=== PATIENT | female | born 1975 | race Caucasian/White ===

== ENCOUNTER 2017-09-18 16:45 | Emergency (ER) | payer MEDICAID, SELFPAY ==
[2017-09-18 16:47] VITALS: BP 142/96; PULSE 91; RESP 18; TEMP 36.9; O2SAT 99; BMI 32.1
--- NOTE | 2017-09-18 17:24 | RAD_ITS ---
STUDY: X-RAY - PELVIS AND RIGHT HIP REASON FOR EXAM: Female, 42 years old. Trauma TECHNIQUE: Radiological exam, hip, unilateral, with pelvis when performed; 2 or 3 views. COMPARISON: None. FINDINGS: There is a non-specific bowel gas pattern. Normal visualized soft tissue structures. Normal bilateral iliac wings, sacroiliac joints and visualized sacrum. Normal bilateral superior and inferior pubic rami. Normal pubic symphysis. Normal bilateral ischial tuberosities. Normal visualized femoral head. Normal acetabulum. Normal hip joint. RAD/Hip 2-3 Views with Pelvis IMPRESSION: Normal x-ray examination of the pelvis and hip. Electronically Signed: Aamir Joseph, at 18:13 EDT Tel , Service support ,
--- NOTE | 2017-09-18 17:24 | RAD_ITS ---
STUDY: X-RAY - NASAL BONES REASON FOR EXAM: Female, 42 years old. Fall TECHNIQUE: History view(s) of the nasal bones. COMPARISON: None. FINDINGS: There is a minimally displaced fracture of the distal aspect of the nasal bone. The paranasal sinuses are clear. There are no radiodense foreign bodies. RAD/Nasal Bones min 3 Views IMPRESSION: Minimally displaced fracture of the distal nasal bone. Electronically Signed: Aamir Joseph, at 18:07 EDT Tel , Service support ,
--- NOTE | 2017-09-18 18:05 | CT_ITS ---
STUDY: CT BRAIN WITHOUT CONTRAST REASON FOR EXAM: Female, 42 years old. Trauma RADIATION DOSAGE (If Supplied By Facility): CTDIvol = ( 44.99 ) mGy, DLP = ( 762.36 ) mGycm TECHNIQUE: Transaxial CT imaging of the brain was performed without administration of intravenous contrast material. Individualized dose optimization techniques were used for this CT. COMPARISON: 10/06/2006 FINDINGS: There is no acute bleed or infarct. There are normal white matter tracts. The ventricles are normal in configuration. There is no hydrocephalus. The visualized paranasal sinuses are clear. The mastoid air cells are well aerated. There is no skull fracture. CT/Brain/Head without Contrast IMPRESSION: No acute intracranial abnormality. Electronically Signed: Aamir Joseph, at 19:13 EDT Tel , Service support ,
--- NOTE | 2017-09-18 18:05 | CT_ITS ---
STUDY: CT FACIAL BONES WITHOUT CONTRAST REASON FOR EXAM: Female, 42 years old. Trauma RADIATION DOSAGE (If Supplied By Facility): CTDIvol = ( 29.38 ) mGy, DLP = ( 562.15 ) mGycm TECHNIQUE: The patient was scanned in a multi detector CT scanner. Sagittal and coronal images were reconstructed. Individualized dose optimization techniques were used for this CT. COMPARISON: Brain CT dated 10/06/2006 FINDINGS: There are well-corticated lucencies in the nasal bones (image 41 series 6) which are stable when compared with the brain CT dated 10/06/2006 (image 1 series 2 on that study). Therefore, these are not acute in nature. There is no acute facial fracture. The paranasal sinuses are clear. There is mild soft tissue swelling overlying the nose. The visualized intracranial structures are within normal limits. CT/Sinus/Facial Bone IMPRESSION: No acute facial fracture. Clear sinuses. Well-corticated lucencies in the nasal bone which are stable when compared with the brain CT dated 10/06/2006. Therefore, these are not acute in nature. Mild soft tissue swelling overlying the nose. Electronically Signed: Aamir Joseph, at 19:00 EDT Tel , Service support ,
--- NOTE | 2017-09-18 19:40 | ED.VISSUMM ---
- ER Visit Summary Date of Service: 09/18/17 Chief Complaint: Fall History of Present Illness: The patient is a 42 F who had a fall 3 days ago. She had been sleeping. She was woken up and stood up quickly and states she really was not completely awake and she felt lightheaded and fell forward onto her face. She currently complains of a headache and pain under nose. She also complains of right hip pain radiating down her leg. No back pain. Physical Examination: Afebrile vitals are stable Patient does have some periorbital ecchymosis and bruising across the nasal bridge as well as soft tissue swelling no epistaxis no midface instability GCS of 15 with no focal or lateralizing neurological deficits Heart regular rate and rhythm Lungs are clear Abdomen soft Easily palpable right dorsalis pedis pulse with brisk capillary refill normal sensation really no reproducible pain with range of motion of the hip she has a negative straight leg raise Test Results: Right hip x-ray and nasal bone x-rays were obtained based off of nursing protocol. Right hip x-ray is normal. Nasal bone x-ray shows a minimally displaced nasal fracture. CT of the head and facial bones is obtained. CT of the facial bones shows well-corticated lucencies which are stable from 2006 examination in the nasal bones no acute fracture. CT of the head shows nothing acute. Emergency Department Course and Treatment: Nasal bone x-rays have been obtained off nursing protocol but given her periorbital ecchymosis and for more detailed results I did obtain a CT of the facial bones with actually shows that the nasal bone fracture is old. The patient does report an old nasal fracture. She was advised on supportive care. All questions answered bedside. Patient discharged. Treatment Plan: [] Disposition: Discharge Impression: Lumbar radiculopathy Closed head injury Facial contusion This note was generated with [employer] dictation software. It may contain incorrect words, spelling, and punctuation that were not noted in review of the chart prior to signing ED Disposition - Plan for ED Patient: Chief Complaint: Other, Pain/Inj Referrals: Catalina Samuels, ABELARDO-C [Primary Care Provider] -
--- NOTE | 2017-09-18 19:42 | ED.DEP ---
ED Disposition - Plan for ED Patient: Chief Complaint: Other, Pain/Inj Instructions: ED Contusion Nasal, ED Head Injury Closed Referrals: Catalina Samuels, FINANCE ATTORNEY-C [Primary Care Provider] -
--- NOTE | 2017-09-18 19:46 | DCINST.ED_ITS ---
ED Disposition - Plan for ED Patient: Chief Complaint: Other, Pain/Inj Instructions: ED Contusion Nasal, ED Head Injury Closed Referrals: Catalina Samuels, REGISTERED NURSE MATERNAL CHILD-C [Primary Care Provider] -
[2017-09-18 19:49] VITALS: BP 132/72; PULSE 94; RESP 17; O2SAT 100
== END 2017-09-18 19:50 | disposition home or self-care (01) ==
PROVIDERS: Emergency Provider Emergency Medicine; PCP Nurse Practitioner Family
DX: S00.33XA Contusion of nose, initial encounter (principal); S05.10XA Contusion of eyeball and orbital tissues, unspecified eye, initial encounter; M25.551 Pain in right hip; W19.XXXA Unspecified fall, initial encounter; Y93.9 Activity, unspecified; Y92.9 Unspecified place or not applicable; Y99.9 Unspecified external cause status; M54.16 Radiculopathy, lumbar region; E11.9 Type 2 diabetes mellitus without complications; I10 Essential (primary) hypertension; Z72.0 Tobacco use; Z79.4 Long term (current) use of insulin; Z79.899 Other long term (current) drug therapy
CPT/HCPCS: 70160; 70450; 70486; 73502; 99282

== ENCOUNTER 2017-12-24 12:55 | Emergency (ER) | payer MEDICAID, SELFPAY ==
[2017-12-24 12:56] VITALS: BP 120/98; PULSE 93; RESP 16; TEMP 37.1; O2SAT 97; BMI 32.5
[2017-12-24 13:39] VITALS: BP 144/88; PULSE 106; RESP 16; O2SAT 96
[2017-12-24 13:40] LABS: Bedside Glucose 310 mg/dL (70-110)
[2017-12-24 13:42] LABS: Absolute Neutrophil Count 9.5 X10^3/uL (2.0-7.7); Basophil# 0.07 X10^3/uL; Basophil% 0.5 % (0-1); Eosinophil# 0.12 X10^3/uL; Eosinophils% 0.9 % (0-5); Hematocrit 43.5 % (37-47); Lymphocyte % 21.4 % (19-41); Mean Corp Hgb Conc 34.5 g/gl (32-36); Mean Corpuscular Hgb 30.7 pg (27.0-32.0); Mean Platelet Vol. 8.8 fl (6.2-12.0); Monocyte# 0.83 X10^3/uL; Monocyte% 6.1 % (0-10); Neutrophil # 9.53 X10^3/uL (2.7-7.7); Neutrophil % 70.6 % (47-70); Platelet Count 528 K/mm3 (150-450); RBC Distribution Width CV 13.8 % (11.6-14.6); RBC Distribution Width SD 44.3 fl (35.1-43.9); Red Blood Count 4.89 M/mm3 (4.2-5.4); White Blood Count 13.5 K/mm3 (4.4-11.0)
[2017-12-24] MEDS: HYDROcodone Bitartrate/Apap 5/325 Tablet PO (13:43)
[2017-12-24] MEDS: 0.9% Normal Saline 1,000 ML 1000 ML IV (13:43)
[2017-12-24 13:44] LABS: POSITIVE COUNT NO; POSITIVE DIFFERENTIAL NO; POSITIVE MORPHOLOGY NO
[2017-12-24 13:51] LABS: Anion Gap 12 (5-15); BUN 13 mg/dL (7-18); BUN/Creat Ratio 14.8 RATIO (10-20); Calcium,Total 9.2 mg/dL (8.5-10.1); Chloride 100 mmol/L (98-107); Creatinine, Serum 0.88 mg/dL (0.55-1.02); EST Glomerular Filtration Rate 75 mL/min (>60); Est Glom Filt Rate - Afr Amer 90 mL/min (>60); Estimated Creatinine Clearance 68.19 ml/min; Glucose 306 mg/dL (74-106); Potassium 4.2 mmol/L (3.5-5.1); Sodium Level 138 mmol/L (136-145)
[2017-12-24 14:02] LABS: Mucous, Urine 0 SEEN /hpf (<or=2+)
[2017-12-24 14:04] LABS: Color, Urine Yellow (Yellow); Glucose, Dipstick 1000 mg/dl (Normal); Ketone-Dipstick 15 mg/dl (Negative); Leukocyte Esterase-Dipstick 500 /ul (Negative); Nitrite-Dipstick Negative (Negative); Occult Blood-Urine 10 /ul (Negative); Protein-Dipstick 15 mg/dl (Negative); Urine Bilirubin Dipstick Negative (Negative); Urine Clarity Cloudy (Clear); Urine Urobilinogen Normal (Normal)
[2017-12-24 14:11] LABS: Bacteria RARE /hpf (None Seen); Red Blood Cells-Urine 0-5 SEEN /hpf (0-5); Squamous Epithelial Cells - UA 0-5 SEEN /hpf (5-10); White Blood Cells 5-10 SEEN /hpf (0-5); Yeast-Urine 1+ /hpf (None Seen)
--- NOTE | 2017-12-24 15:12 | ED.VISSUMM ---
- ER Visit Summary Date of Service: 12/24/17 Chief Complaint: Numerous symptoms which include vaginal discharge and pain, neuropathic pain lower extremities bilaterally, blood sugar greater than 300 History of Present Illness: The patient is a 42 F who presents with worsening bilateral neuropathic pain lower extremity, difficulty controlling blood sugar with numerous readings past 1-2 weeks of greater than 300. Last A1c level greater than 12. She also complains of vaginal discharge and itching. She complains of mild dysuria with urination. She denies fever, chills night sweats. Denies weight gain or weight loss. She denies headache. She denies chest pain, palpitations or rapid heartbeat. She denies productive cough, dyspnea or dyspnea on exertion. She denies nausea, vomiting diarrhea. She denies any skin lesion other than the the redness associated with the vaginal discharge. She is not sexually active. Denies history of STD. She denies symptoms of claudication. Physical Examination: Vital signs are remarkable for an elevated blood pressure of 128/98. BMI is 32.6. HEENT is remarkable for poor dentition. Heart is regular without murmur, gallop or rub. S1 and S2 are normal. Lungs are clear to auscultation with good movement of air bilaterally. Abdomen is soft nontender bowel sounds present normal. There is no evidence of umbilical or inguinal hernia. Patient has diminished DP PT pulse. There is absence of hair lower/distal right and left leg and toes. Patient is alert and oriented ?3. Motor is 5 over 5. Sensory is intact. DTRs are symmetric with no clonus or Babinski sign. Cranial 2 through 12 are intact. Cerebellar testing is normal. Patient does have pain out of proportion to light touch consistent with neuropathic pain and describes as burning. Test Results: White count elevated 13.5 with 71 segs. BMP is marked for glucose of 306 with normal CO2 and anion gap. UA is remarkable for yeast as well as proteinuria and hematuria. Emergency Department Course and Treatment: To evaluate patient's symptoms UA was obtained. Suspect she has a yeast infection. BMP was obtained because of her reported elevated blood sugars and elevated A1c. Treatment Plan: Patient received Diflucan. She was informed of the importance that she must stop smoking immediately. She was a smoker 1-1/2-2 packs per day. She continues to smoke. She was told the importance of compliance with her diet. She was informed she needs to follow-up with her doctor for diabetic education. She was told she is on maximum dose of gabapentin and at this time I have nothing further to offer her regarding her neuropathic pain. She received Diflucan in the department for her yeast infection. Disposition: Discharged to home with family and outpatient follow-up for diabetic education. Patient was informed she continues her present lifestyle she may have premature stroke, heart disease and heart attack, renal failure requiring dialysis and loss of digits/extremities. Impression: 1. Monilial yeast infection 2. Poorly controlled type II diabetic 3. Neuropathic pain lower extremity 4. Peripheral arterial disease 5. Tobacco abuse This note was generated with [employer] dictation software. It may contain incorrect words, spelling, and punctuation that were not noted in review of the chart prior to signing ED Disposition - Plan for ED Patient: Disposition: Home or Assisted Living Chief Complaint: Other, Pain/Inj Instructions: ED Neuropathy Peripheral, ED Hyperglycemia Diabetic, ED PVD, ED Smoking Cessation Referrals: Catalina Samuels, ABELARDO-C [Primary Care Provider] - 3-5 Days Additional Instructions: You must quit smoking immediately.
[2017-12-24] MEDS: Fluconazole 100 MG Tablet 200 MG PO (15:41)
[2017-12-24 15:42] VITALS: BP 139/88; PULSE 79; RESP 18; O2SAT 98
== END 2017-12-24 15:43 | disposition home or self-care (01) ==
PROVIDERS: Emergency Provider Emergency Medicine; PCP Nurse Practitioner Family
DX: B37.3 Candidiasis of vulva and vagina (principal); E11.65 Type 2 diabetes mellitus with hyperglycemia; E11.40 Type 2 diabetes mellitus with diabetic neuropathy, unspecified; R03.0 Elevated blood-pressure reading, without diagnosis of hypertension; R31.9 Hematuria, unspecified; R80.9 Proteinuria, unspecified; I73.9 Peripheral vascular disease, unspecified; F17.200 Nicotine dependence, unspecified, uncomplicated; E66.9 Obesity, unspecified; Z68.32 Body mass index [BMI] 32.0-32.9, adult; Z79.4 Long term (current) use of insulin; Z79.899 Other long term (current) drug therapy
CPT/HCPCS: 80048; 81001; 82962; 85025; 96360; 96361; 99285; J7030

== ENCOUNTER 2017-12-27 08:15 | Emergency (ER) | payer MEDICAID, SELFPAY ==
[2017-12-27 08:17] VITALS: BP 139/91; PULSE 106; RESP 15; TEMP 36.4; O2SAT 99; BMI 32.2
--- NOTE | 2017-12-27 08:37 | EKG12_ITS ---
Test Reason : Blood Pressure : / mmHG Vent. Rate : 093 BPM Atrial Rate : 093 BPM P-R Int : 122 ms QRS Dur : 082 ms QT Int : 378 ms P-R-T Axes : 059 020 039 degrees QTc Int : 469 ms Normal sinus rhythm Normal ECG Confirmed by ARIANNE GRANDE, TOMY ([id number]), communications editor GUILLE WILHELM ([id number]) on 12/29/2017 1:41:08 PM Referred By: Asia Roque Confirmed By:TOMY ACUÑA MD
--- NOTE | 2017-12-27 08:37 | CT_ITS ---
STUDY: CT ABDOMEN AND PELVIS WITHOUT CONTRAST REASON FOR EXAM: Female, 42 years old. Low pelvic pain, fever RADIATION DOSAGE (If Supplied By Facility): CTDIvol = ( 14.51 ) mGy, DLP = ( 765.92 ) mGycm TECHNIQUE: Transaxial images were obtained from the dome of the diaphragm to the symphysis pubis without oral contrast, and without intravenous contrast. Sagittal and coronal images were reconstructed. Individualized dose optimization techniques were used for this CT. COMPARISON: 10/17/2016 FINDINGS: Lung bases show interstitial edema. No organized infiltrate or effusion. The visualized portions of the heart are within normal limits. There is decreased attenuation of the liver consistent with steatosis. Normal gallbladder and extrahepatic biliary system. Normal spleen. Normal pancreas. Normal bilateral adrenal glands. Normal right kidney. Normal left kidney. Normal visualized stomach. Normal small intestine. Normal colon. The appendix is visualized and appears normal. Appendix best seen on axial image 127 Normal abdominal aorta. Normal inferior vena cava. Normal retroperitoneum. Normal urinary bladder. Normal visualized uterus. No suspicious cystic mass or free fluid. Normal abdominal wall. Normal osseous structures. CT/Abdomen/Pelvis without Cont IMPRESSION: Fatty infiltration of liver, no discrete lesion. No CT evidence of an acute inflammatory process, normal appendix visualized. No free intraperitoneal fluid, air, or suspicious adenopathy Interstitial edema in the lung bases. Electronically Signed: Tim Quesada MD at 9:19 EDT , Service support ,
--- NOTE | 2017-12-27 08:44 | ED.VISSUMM ---
- ER Visit Summary Date of Service: 12/27/17 Chief Complaint: [Not feeling well] History of Present Illness: The patient is[presents the emergency department with 3 days of not feeling well. She has had a rash on her bilateral knees consistent with her psoriasis she has pain in her proximal thighs pain in her paraspinal back muscles that radiates to her neck. She complains of chills and fevers nausea decreased appetite green mucousy stool high blood sugars in general malaise. She was seen here with yeast vaginitis. She states she is not feeling any better.] Physical Examination: [] Pressure 139/91, heart rate 106 other vitals within acceptable limits WN WD NAD PERRL EOMI MMM NECK supple and nontender, no masses RRR no murmur rub or gallop, no peripheral edema, symmetric radial pulses CTAB no respiratory distress ABDOMEN is soft and mild tenderness to palpation left lower quadrant normal bowel sounds, no distension, no rebound or guarding SKIN is warm and dry dry scaly erythematous rash in the bilateral anterior knees Alert and Oriented x3, CN II-XII in tact, no motor or sensory deficits, gait normal No lymphadenopathy Test Results: [] Emergency Department Course and Treatment: [Patient has a leukocytosis at 12. Blood sugar was 270. Urine does appear infected. Urine culture was sent. Patient was given Levaquin IV. She was given the same for home. She was given precautions for which to return. She did request pain medicine. She denies having any recent narcotic prescriptions. I am unable to get into worse because of computer issues. I will write her for Mack.] Treatment Plan: [] Disposition: [Discharge] Impression: [1. Myalgias 2. UTI] This note was generated with [employer] dictation software. It may contain incorrect words, spelling, and punctuation that were not noted in review of the chart prior to signing ED Disposition - Plan for ED Patient: Chief Complaint: General Illness Referrals: Catalina Samuels NP-C [Primary Care Provider] -
[2017-12-27] MEDS: 0.9% Normal Saline 1,000 ML 1000 ML IV (08:51)
[2017-12-27] MEDS: Morphine 4 MG/ML Syringe IV ×2 (08:52→10:56)
[2017-12-27] MEDS: levoFLOXacin IV 500 MG/100 ML BAG 100 MG IV (08:52)
[2017-12-27] MEDS: Ondansetron 4 MG/2 ML Vial IV (08:52)
[2017-12-27 08:58] LABS: Absolute Lymphocyte Count 3.71 X10^3/ul (0.83-4.51); Absolute Neutrophil Count 6.4 X10^3/uL (2.0-7.7); Basophil# 0.05 X10^3/uL; Basophil% 0.4 % (0-1); Eosinophil# 0.21 X10^3/uL; Eosinophils% 1.8 % (0-5); Hematocrit 39.6 % (37-47); Hemoglobin 13.4 g/dl (12.0-15.0); Lymphocyte # 3.71 X10^3/ul (4.0); Lymphocyte % 31.9 % (19-41); Mean Corp Hgb Conc 33.8 g/gl (32-36); Mean Corpuscular Hgb 30.3 pg (27.0-32.0); Mean Corpuscular Volume 89.6 fL (81-99); Mean Platelet Vol. 8.8 fl (6.2-12.0); Monocyte% 10.3 % (0-10); Neutrophil # 6.39 X10^3/uL (2.7-7.7); Neutrophil % 55.1 % (47-70); Platelet Count 469 K/mm3 (150-450); RBC Distribution Width SD 45.1 fl (35.1-43.9); Red Blood Count 4.42 M/mm3 (4.2-5.4); White Blood Count 11.6 K/mm3 (4.4-11.0)
[2017-12-27 09:02] LABS: POSITIVE COUNT NO; POSITIVE DIFFERENTIAL NO; POSITIVE MORPHOLOGY NO
[2017-12-27 09:17] LABS: ALB/GLOB Ratio 0.9 RATIO (0.9-2.4); AST(SGOT) 32 U/L (15-37); Alanine Aminotransfer ALT/SGPT 46 U/L (13-56); Albumin, Serum 3.4 g/dL (3.2-5.0); Alkaline Phosphatase 105 U/L (45-117); Anion Gap 9 (5-15); BUN 13 mg/dL (7-18); BUN/Creat Ratio 17.1 RATIO (10-20); Calcium,Total 9.1 mg/dL (8.5-10.1); Chloride 103 mmol/L (98-107); Creatinine, Serum 0.76 mg/dL (0.55-1.02); EST Glomerular Filtration Rate 88 mL/min (>60); Est Glom Filt Rate - Afr Amer 107 mL/min (>60); Estimated Creatinine Clearance 78.95 ml/min; Globulin 3.8 g/dL (2.2-4.2); Glucose 270 mg/dL (74-106); Lipase 161 U/L (73-393); Potassium 3.5 mmol/L (3.5-5.1); Protein, Total 7.2 g/dL (6.4-8.2); Sodium Level 139 mmol/L (136-145)
[2017-12-27 09:36] LABS: CPK Total, Creatine Kinase 185 U/L (26-192)
--- NOTE | 2017-12-27 11:05 | RAD_ITS ---
STUDY: X-RAY CHEST REASON FOR EXAM: Female, 42 years old. General illness, malaise TECHNIQUE: PA and lateral views of the chest. COMPARISON: None. FINDINGS: The lungs are clear and expanded. There is no demonstrated pleural abnormality. Normal size heart. Normal mediastinum and jolly. Normal visualized pulmonary arteries. Normal visualized aortic arch and descending thoracic aorta. Normal visualized thoracic spine. Normal visualized ribs, clavicles, and shoulders. There is no demonstrated abnormality of the visualized soft tissue structures of the upper abdomen. RAD/Chest PA and Lateral IMPRESSION: Normal x-ray examination of the chest. Electronically Signed: Tim Quesada MD at 11:20 EDT , Service support ,
[2017-12-27 11:09] VITALS: BP 109/70; PULSE 95; RESP 18; O2SAT 100
[2017-12-27 11:12] LABS: Mucous, Urine 0 SEEN /hpf (<or=2+); Red Blood Cells-Urine 0 SEEN /hpf (0-5)
[2017-12-27 11:15] LABS: Color, Urine Yellow (Yellow); Glucose, Dipstick 1000 mg/dl (Normal); Ketone-Dipstick 15 mg/dl (Negative); Leukocyte Esterase-Dipstick 500 /ul (Negative); Nitrite-Dipstick Negative (Negative); Occult Blood-Urine 10 /ul (Negative); Protein-Dipstick 15 mg/dl (Negative); Specific Gravity, Urine 1.025 (1.002-1.030); Urine Clarity Sl. Cloudy (Clear); Urine Urobilinogen Normal (Normal)
[2017-12-27 11:29] LABS: Urine Bilirubin Dipstick 1 mg/dL (Negative)
[2017-12-27 11:29] LABS: BNP,B-Type NATRIURETIC PEPTIDE 10.5 pg/mL (0-100)
[2017-12-27 11:31] LABS: White Blood Cells >100 SEEN /hpf (0-5)
[2017-12-27 11:33] LABS: Squamous Epithelial Cells - UA 0-5 SEEN /hpf (5-10)
[2017-12-27 11:34] LABS: Bacteria 2+ /hpf (None Seen)
--- NOTE | 2017-12-27 11:44 | ED.DEP ---
ED Disposition - Plan for ED Patient: Chief Complaint: General Illness Instructions: Urinary Tract Infections in Women Prescriptions: Hydrocodone Bitart/Apap 5-325 [[place] 5MG-325MG] 1 tablet PO Q4H PRN PRN 2 Days #10 tablet PRN Reason: Pain proMETHazine tablet [Phenergan] 25 mg PO Q6H PRN PRN #10 tablet PRN Reason: Nausea Levofloxacin [Levaquin] 750 mg PO DAILY #5 tablet Referrals: Catalina Samuels NP-C [Primary Care Provider] - 2 Days
[2017-12-27 11:53] VITALS: BP 109/70; PULSE 84; RESP 18; O2SAT 99
== END 2017-12-27 11:55 | disposition home or self-care (01) ==
PROVIDERS: Emergency Provider Emergency Medicine; PCP Nurse Practitioner Family
DX: N39.0 Urinary tract infection, site not specified (principal); M79.1 Myalgia; R53.81 Other malaise; R11.0 Nausea; R19.7 Diarrhea, unspecified; L40.9 Psoriasis, unspecified; E66.9 Obesity, unspecified; Z79.4 Long term (current) use of insulin; Z79.899 Other long term (current) drug therapy
CPT/HCPCS: 71046; 74176; 80053; 81001; 82550; 83690; 83880; 84484; 85025; 87086; 87088; 93005; 96365; 96366; 96375; 96376; 99283; J7030; A4216; J2405

== ENCOUNTER 2018-02-13 23:31 | Observation (INO) | payer MEDICAID, SELFPAY ==
[2018-02-13 23:31] VITALS: BP 168/95; PULSE 122; RESP 16; TEMP 36.3; O2SAT 99; BMI 34.0
--- NOTE | 2018-02-14 | RAD_ITS ---
STUDY: X-RAY - PELVIS AND RIGHT HIP REASON FOR EXAM: Female, 42 years old. Right-sided groin pain for 6 months after lifting injury. TECHNIQUE: Radiological exam, hip, unilateral, with pelvis when performed; 2 or 3 views. COMPARISON: CT of the abdomen and pelvis dated December 27, 2017. FINDINGS: There is a non-specific bowel gas pattern. There are multiple calcified phleboliths. Sacrum and iliac wings are obscured by bowel gas and stool. Normal bilateral superior and inferior pubic rami. Normal pubic symphysis. Normal bilateral ischial tuberosities. There appears to be a fracture of the lesser trochanter of the right femur. The proximal left femur is within normal limits. Normal acetabulum. Normal hip joint. RAD/HIP, UNI W/ Pelvis 2-3 Views IMPRESSION: Apparent fracture of the RIGHT lesser trochanter. Electronically Signed: Kelsea Hawkins MD at 1:01 EDT , Service support ,
[2018-02-14] MEDS: Ketorolac 60 MG/2 ML Vial IM (00:01)
[2018-02-14] MEDS: Morphine 4 MG/ML Syringe IM (00:01)
[2018-02-14] MEDS: Orphenadrine 60 MG/2 ML Ampul IM (00:02)
--- NOTE | 2018-02-14 00:22 | ED.DCSUM_ITS ---
- ER Visit Summary Date of Service: 02/14/18 Chief Complaint: Right hip pain History of Present Illness: The patient is a 42 F presents to the emergency department with right low back pain and right hip pain. The patient had the symptoms for the past 6 months. She states in August, she was in [place]. She states that she was lifting a toilet and felt something pop in her right hip. Since then, she has had consistent burning pain in her right hip into her right side. She has also had pain in her right low back and buttock area. She denies any problems of bowel or bladder. She denies any fevers or chills. She states she has been taking anti-inflammatories with little improvement. She is scheduled to see her primary care in 6 days, but states the pain is worsened and she need to be reevaluated. Physical Examination: Afebrile, vitals unremarkable. Well-appearing female no acute distress. Head is normocephalic, atraumatic. Pupil's equal round reactive, extraocular muscles intact. Neck supple. Heart regular rate and rhythm. Lungs clear, chest nontender. Abdomen soft, nontender, nondistended. No pulsatile mass. Patient has paraspinal tenderness in the lumbar area, but no bony tenderness. Straight leg raise is negative bilaterally. 2+ symmetric lower extremity pulses. 2+ reflexes. No clonus. No weakness of dorsiflexion, plantar flexion, or extensor hallucis longus bilaterally. Test Results: [] Emergency Department Course and Treatment: The patient has a lot of pain with logroll of the right hip. Her pulses are normal. She is neurovascular intact distally. There is no erythema or edema of the hip. She was treated with IM medications with very little improvement of her pain. Plain films do demonstrate fracture of the lesser trochanter. I was initially unsure if it actually went through the base of the cervical area of the hip. IV was established. Patient was given IV analgesics and was more comfortable. She can still not stand and bear weight because of her pain. CT demonstrates nonunion of the lesser trochanter. The fracture does not extend into the hip itself. Given her persistent pain, I do for the patient is can require admission and orthopedic consult. Patient was discussed with the hospitalist will be admitted. Treatment Plan: [] Disposition: Admission Impression: 1. 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 Inability to ambulate This note was generated with [employer] dictation software. It may contain incorrect words, spelling, and punctuation that were not noted in review of the chart prior to signing ED Disposition - Plan for ED Patient: Chief Complaint: Back Referrals: Catalina Samuels, AUTOMATIC SERGING MACHINE OPERATOR-C [Primary Care Provider] -
--- NOTE | 2018-02-14 01:04 | CT_ITS ---
STUDY: CT RIGHT HIP WITHOUT CONTRAST REASON FOR EXAM: Female, 42 years old. Right groin pain for 6 months after lifting injury. RADIATION DOSAGE (If Supplied By Facility): CTDIvol = ( 25.16 ) mGy, DLP = ( 634.29 ) mGycm TECHNIQUE: Transaxial CT imaging of the hip was performed. Sagittal and coronal images were reconstructed. Individualized dose optimization techniques were used for this CT. COMPARISON: Radiographs of the right hip dated February 14, 2018. FINDINGS: Normal visualized femoral diaphysis. Normal visualized skeletal muscles. There is an ununited fracture of the right-sided lesser trochanter. The fracture fragment measures approximately 11.5 mm in greatest dimension. Normal acetabulum. Normal hip joint. Normal visualized superior and inferior pubic rami and ischial tuberosities. Normal visualized urinary bladder. There is no evidence for dilated bowel. Normal visualized colon. There is no pelvic fluid. There is no pelvic mass lesion or lymphadenopathy. Normal visualized pelvic arteries. Normal abdominal wall. 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 Electronically Signed: Kelsea Hawkins MD at 2:26 EDT , Service support ,
[2018-02-14] MEDS: HYDROmorphone 1 MG/ML Syringe IM (01:25)
[2018-02-14 01:43] LABS: Absolute Lymphocyte Count 5.66 X10^3/ul (0.83-4.51); Absolute Neutrophil Count 8.9 X10^3/uL (2.0-7.7); Basophil# 0.04 X10^3/uL; Basophil% 0.2 % (0-1); Eosinophil# 0.43 X10^3/uL; Eosinophils% 2.6 % (0-5); Hematocrit 39.6 % (37-47); Hemoglobin 13.3 g/dl (12.0-15.0); Lymphocyte # 5.66 X10^3/ul (4.0); Lymphocyte % 34.7 % (19-41); Mean Corp Hgb Conc 33.6 g/gl (32-36); Mean Corpuscular Hgb 30.3 pg (27.0-32.0); Mean Corpuscular Volume 90.2 fL (81-99); Mean Platelet Vol. 9.2 fl (6.2-12.0); Monocyte# 1.19 X10^3/uL; Monocyte% 7.3 % (0-10); Neutrophil # 8.88 X10^3/uL (2.7-7.7); Neutrophil % 54.6 % (47-70); POSITIVE DIFFERENTIAL YES; Platelet Count 365 K/mm3 (150-450); RBC Distribution Width CV 14.4 % (11.6-14.6); RBC Distribution Width SD 47.1 fl (35.1-43.9); Red Blood Count 4.39 M/mm3 (4.2-5.4); White Blood Count 16.3 K/mm3 (4.4-11.0)
[2018-02-14 01:44] LABS: Differential Indicated SCAN CRITERIA MET; POSITIVE COUNT NO; POSITIVE MORPHOLOGY YES
[2018-02-14 01:51] LABS: ALB/GLOB Ratio 0.9 RATIO (0.9-2.4); AST(SGOT) 25 U/L (15-37); Alanine Aminotransfer ALT/SGPT 37 U/L (13-56); Albumin, Serum 3.1 g/dL (3.2-5.0); Alkaline Phosphatase 94 U/L (45-117); Anion Gap 11 (5-15); BUN 8 mg/dL (7-18); BUN/Creat Ratio 10.7 RATIO (10-20); Calcium,Total 9.2 mg/dL (8.5-10.1); Chloride 102 mmol/L (98-107); Creatinine, Serum 0.75 mg/dL (0.55-1.02); EST Glomerular Filtration Rate 90 mL/min (>60); Est Glom Filt Rate - Afr Amer 109 mL/min (>60); Estimated Creatinine Clearance 72.98 ml/min; Globulin 3.4 g/dL (2.2-4.2); Glucose 290 mg/dL (74-106); Potassium 3.8 mmol/L (3.5-5.1); Protein, Total 6.5 g/dL (6.4-8.2); Sodium Level 135 mmol/L (136-145)
--- NOTE | 2018-02-14 02:43 | PCM.HP.STD ---
Problem List (1) Femur fracture, right Status: Chronic (2) HTN (hypertension) Status: Chronic (3) Diabetes Status: Chronic History of Present Illness Date of Admission: 02/14/18 Chief Complaint: right hip pain x 6 months The patient is a 42 year old F with a significant history of diabetes mellitus; hypertension; hyperlipidemia who presented because of excruciating pain of her right hip x 1 day. There are no relieving factors to her pain. Her pain is aggravated with moving her legs. Her pain is sharp in quality. The pain has been going on for 6 months but since yesterday her pain has been unbearable so she presented to the emergency department. Emergency department x-ray of the hip and pelvis showed a possible fracture of the right lesser trochanter. CT of the right lower extremity showed ununited fracture of the lesser trochanter. At emergency department patient was medicated with Dilaudid, Toradol, morphine, and Norflex. Ununited fracture of the R lesser trochanter Oxycodone and morphine as needed. Scheduled Tylenol. Bowel protocol with Senokot. Orthopedic consult Weightbearing on right leg as tolerated. Hypertension Uncontrolled admission Lisinopril continued As needed labetalol ordered. Diabetes mellitus with acute hypoglycemia and chronic peripheral neuropathy At emergency department blood glucose was not within goal Would discontinue metformin at this time to decrease risk of lactic acidosis Basal insulin and correction scale insulin ordered. Hyperlipidemia Lipitor continued DVT prophylaxis Subcutaneous Lovenox. Past Medical History Past Medical History (Chronic Problems): Chronic Problems Femur fracture, right (Chronic) HTN (hypertension) (Chronic) Diabetes (Chronic) Allergies No Known Allergies Allergy (Verified 02/13/18 23:32) Home Medications: Ambulatory Orders Medication Instructions Recorded Metformin HCl [Glucophage] 500 mg PO TIDCM 02/16/14 Lisinopril [Lisinopril] 20 mg PO DAILY 03/20/14 Simvastatin [Zocor] 20 mg PO DAILY 03/20/14 Insulin Degludec [Tresiba 34 units SQ DAILY 01/12/17 Flextouch U-100] Gabapentin [Neurontin] 800 mg PO 4X/DAY 04/22/17 Lives: With Family Smoking Status: Current every day smoker - Cigarettes. Alcohol: None Drugs: None - *Family History Paternal History Items: Heart Disease Review of Systems Constitutional: Denies: Chills, Fever, Weight Change HEENT: Denies: Head Aches, Sinus Congestion, Sinus Drainage Cardiovascular: Denies: Chest Pain, Palpitations Respiratory: Denies: Cough, Shortness of breath at rest, Sputum production Gastrointestinal: Denies: Abdominal Pain, Nausea, Vomiting Genitourinary: Denies: Dysuria Musculoskeletal: Reports: Joint Tenderness - Right hip. Denies: Joint Pain Skin: Denies: Rash, Wounds Neurological: Denies: Numbness, Tingling, Focal weakness Psychiatric: Denies: Anxiety, Depression, Homicidal Ideations, Suicidal Ideations Hematologic/ Lymphatic: Denies: Easy Bruising, Easy Bleeding VTE Information - Inpt Only VTE Present on Admission: No VTE Mechan Device Prophylaxis: None VTE Pharm Prophylaxis ordered?: Yes - Physical Exam General: Alert, Oriented x3, Cooperative, - - Patient crying secondary to pain at the right hip. HEENT: Atraumatic, PERRLA, EOMI, Normocephalic Neck: Supple, No JVD, Negative Carotid Bruits Lungs: Clear to auscultation, Normal air movement Cardiovascular: Regular Rhythm, Normal S1, Normal S2, Tachycardic Abdomen: Bowel Sounds Present Extremities: Tenderness - Right hip, - - Positive straight leg test at the right hip. Skin: No rashes, No breakdown Musculoskeletal: Tenderness - R Hip Neurological: Cranial nerves II-XII grossly intact Psych/Mental Status: - - Patient crying secondary to pain at the right hip. Vital Signs Temp Pulse Resp BP Pulse Ox 97.4 F L 122 H 16 168/95 H 99 02/13/18 23:31 02/13/18 23:31 02/13/18 23:31 02/13/18 23:31 02/13/18 23:31 Oxygen Delivery Method Room Air Weight: 81.647 kg Body Mass Index (BMI) 34.0 Finger Stick Blood Glucose 310 Laboratory Tests Past 24 Hrs 02/14/18 02/14/18 01:20 01:20 WBC 16.3 H RBC 4.39 Hgb 13.3 Hct 39.6 MCV 90.2 MCH 30.3 MCHC 33.6 RDW 14.4 RDW Differential 47.1 H Plt Count 365 MPV 9.2 Immature Gran % (Auto) 0.600 Neut % (Auto) 54.6 Lymph % (Auto) 34.7 [place] % (Auto) 7.3 Eos % (Auto) 2.6 Baso % (Auto) 0.2 Absolute Neuts (auto) 8.9 H Absolute Lymphs (auto) 5.66 H Total Counted Not Reportable Sodium 135 L Potassium 3.8 Chloride 102 Carbon Dioxide 22.0 Anion Gap 11 BUN 8 Creatinine 0.75 Estim Creat Clear Calc 72.98 Est GFR (MDRD) Af Amer 109 Est GFR (MDRD) Non-Af 90 BUN/Creatinine Ratio 10.7 Glucose 290 H Calcium 9.2 Total Bilirubin 0.40 AST 25 ALT 37 Alkaline Phosphatase 94 Total Protein 6.5 Albumin 3.1 L Globulin 3.4 Albumin/Globulin Ratio 0.9 Assessment/Plan The patient is a 42 year old F with a significant history of diabetes mellitus; hypertension; hyperlipidemia who presented because of excruciating pain of her right hip . Ununited fracture of the R lesser trochanter Oxycodone and morphine as needed. Scheduled Tylenol. Bowel protocol with Senokot. Orthopedic consult Weightbearing on right leg as tolerated. Hypertension Uncontrolled admission Lisinopril continued As needed labetalol ordered. Diabetes mellitus with acute hypoglycemia and chronic peripheral neuropathy At emergency department blood glucose was not within goal Would discontinue metformin at this time to decrease risk of lactic acidosis Basal insulin and correction scale insulin ordered. Hyperlipidemia Lipitor continued DVT prophylaxis Subcutaneous Lovenox. Code Visit OBSV E&M: 30983 Initial observation care L3
[2018-02-14 02:57] VITALS: BP 158/100; PULSE 104; RESP 17; O2SAT 98
[2018-02-14 03:30] VITALS: BMI 34.7
[2018-02-14 03:36] VITALS: BMI 34.7
[2018-02-14 03:37] VITALS: BP 164/111; PULSE 98; RESP 16; TEMP 36.5; O2SAT 100
[2018-02-14] MEDS: Morphine 2 MG/ML Syringe IV ×2 (04:12→10:21)
--- NOTE | 2018-02-14 04:23 | EKG12_ITS ---
Test Reason : PRE-OP Blood Pressure : / mmHG Vent. Rate : 092 BPM Atrial Rate : 092 BPM P-R Int : 128 ms QRS Dur : 084 ms QT Int : 366 ms P-R-T Axes : 034 016 024 degrees QTc Int : 452 ms Normal sinus rhythm Septal infarct , age undetermined Abnormal ECG When compared with ECG of 27-DEC-2017 08:48, No significant change was found Confirmed by MG GRANDE, MIHIR ([id number]), electronic news gathering editor GUILLE WILHELM ([id number]) on 02/16/2018 1:32:39 PM Referred By: DR HARDING Confirmed By:MIHIR HOLLIDAY MD
[2018-02-14 05:15] LABS: Anion Gap 10 (5-15); BUN 7 mg/dL (7-18); BUN/Creat Ratio 10.5 RATIO (10-20); Calcium,Total 8.4 mg/dL (8.5-10.1); Chloride 103 mmol/L (98-107); Creatinine, Serum 0.67 mg/dL (0.55-1.02); EST Glomerular Filtration Rate 102 mL/min (>60); Est Glom Filt Rate - Afr Amer 123 mL/min (>60); Glucose 247 mg/dL (74-106); Potassium 3.4 mmol/L (3.5-5.1); Sodium Level 139 mmol/L (136-145)
[2018-02-14 05:19] LABS: Absolute Lymphocyte Count 5.48 X10^3/ul (0.83-4.51); Absolute Neutrophil Count 7.4 X10^3/uL (2.0-7.7); Basophil# 0.06 X10^3/uL; Basophil% 0.4 % (0-1); Differential Indicated SCAN CRITERIA MET; Eosinophil# 0.42 X10^3/uL; Eosinophils% 2.9 % (0-5); Hematocrit 37.6 % (37-47); Hemoglobin 12.8 g/dl (12.0-15.0); Lymphocyte # 5.48 X10^3/ul (4.0); Lymphocyte % 37.2 % (19-41); Mean Platelet Vol. 8.7 fl (6.2-12.0); Monocyte# 1.21 X10^3/uL; Monocyte% 8.2 % (0-10); Neutrophil # 7.43 X10^3/uL (2.7-7.7); Neutrophil % 50.5 % (47-70); POSITIVE COUNT NO; POSITIVE DIFFERENTIAL YES; POSITIVE MORPHOLOGY NO; Platelet Count 399 K/mm3 (150-450); RBC Distribution Width CV 14.3 % (11.6-14.6); RBC Distribution Width SD 46.5 fl (35.1-43.9); Red Blood Count 4.13 M/mm3 (4.2-5.4); White Blood Count 14.7 K/mm3 (4.4-11.0)
[2018-02-14] MEDS: Gabapentin 800 MG Tablet PO (06:16)
[2018-02-14] MEDS: oxyCODONE 5 MG Tablet PO (06:16)
[2018-02-14] MEDS: 0.9% NaCl Peripheral Flush Adult/Peds IV (06:16)
[2018-02-14] MEDS: Ondansetron 4 MG/2 ML Vial IV (06:16)
[2018-02-14] MEDS: Acetaminophen 325 MG Tablet 650 MG PO (06:16)
[2018-02-14] MEDS: oxyCODONE 5 MG Tablet 10 MG PO (06:41)
[2018-02-14] MEDS: Insulin Lispro 100 UNIT/ML INSULN.PEN SQ ×2 (07:02→11:20)
[2018-02-14 07:11] LABS: Bedside Glucose 221 mg/dL (70-110)
[2018-02-14 07:26] VITALS: O2SAT 95
[2018-02-14 07:51] VITALS: BP 123/81; PULSE 88; RESP 18; TEMP 36.8; O2SAT 97
[2018-02-14 09:40] VITALS: BP 125/73; PULSE 87; RESP 18; TEMP 37.1; O2SAT 91
--- NOTE | 2018-02-14 10:55 | MRI_ITS ---
STUDY: MRI BILATERAL HIPS T PELVIS REASON FOR EXAM: Right hip pain for 6 months. TECHNIQUE: Standardized fat and water weighted pulse sequences were obtained in all 3 orthogonal planes. COMPARISON: Radiographs 02/14/[address] images 02/14/2018, 03/20/2014. FINDINGS: RIGHT HIP Normal hip joint without articular joint space narrowing. Normal right acetabulum. Normal right labrum. Normal right femoral head. There is a well-defined corticated ossification at the right lesser trochanter (T1 axial images 35, 36) without bone edema or adjacent soft tissue edema consistent with a remote injury. There ossification is visualized on CT images of the pelvis dating back to 03/30/2014. Normal right gluteus minimus, medius and iliopsoas tendons and distal insertions. There is very mild right greater trochanteric bursitis (inversion recovery coronal images 15, 16). Normal right superior and inferior pubic rami. Normal right pubic symphysis. Normal right ischial tuberosity. Normal origin of the right hamstring tendons. There is subchondral sclerosis at the right sacroiliac joint (T1 coronal images 11, 12). Normal visualized soft tissue structures of the pelvis. LEFT HIP Normal left hip joint without articular joint space narrowing. Normal left acetabulum. Normal left labrum. Normal left femoral head. Normal left femoral neck and intratrochanteric region. Normal left gluteus minimus, medius and iliopsoas tendons and distal insertions. Normal left superior and inferior pubic rami. Normal left pubic symphysis. Normal left ischial tuberosity. Normal origin of the left hamstring tendons. Normal visualized left iliac wing, sacroiliac joint, and sacral ala. Normal visualized soft tissue structures of the pelvis. 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 Very mild right greater trochanteric bursitis. Electronically Signed: Rogerio Patel MD at 14:15 EDT Tel , Service support ,
--- NOTE | 2018-02-14 10:57 | PCM.CONS.GEN ---
Problem List (1) Fracture of lesser trochanter of femur Status: Acute Qualifiers: Encounter type: initial encounter Fracture type: closed Fracture alignment: nondisplaced Laterality: right Qualified Code(s): S72.124A - Nondisplaced fracture of lesser trochanter of right femur, initial encounter for closed fracture Reason for Consult Date of Consultation: 02/14/18 Reason for Consultation: right hip pain History of Present Illness: The patient is a 42 year old F who twisted and felt pull in her groin over 6 months ago. has seen multiple doctors, including pain magement for this, and is sick and tired of it. has not had injections into the iliopsoas. Denies numbness, tingling or other associated symptoms. able to move leg up and down,just twisting can be painful. xrays done and ortho consulted. [] Past Medical History Past Medical History (Chronic Problems): Chronic Problems Femur fracture, right (Chronic) HTN (hypertension) (Chronic) Diabetes (Chronic) Allergies No Known Allergies Allergy (Verified 02/13/18 23:32) Home Medications: Ambulatory Orders Medication Instructions Recorded Metformin HCl [Glucophage] 500 mg PO TIDCM 02/16/14 Lisinopril 20 mg PO DAILY 03/20/14 RX: Simvastatin [Zocor] 20 mg PO DAILY 03/20/14 RX: Insulin Degludec [Tresiba 34 units SQ DAILY 01/12/17 Flextouch U-100] Gabapentin [Neurontin] 800 mg PO 4X/DAY 04/22/17 Lives: With Family Smoking Status: Current every day smoker - Cigarettes. Alcohol: None Drugs: None - *Family History Paternal History Items: Heart Disease Review of Systems Constitutional: Denies: Chills, Fever, Weight Change HEENT: Denies: Head Aches, Sinus Congestion, Sinus Drainage Cardiovascular: Denies: Chest Pain, Palpitations Respiratory: Denies: Cough, Shortness of breath at rest, Sputum production Gastrointestinal: Denies: Abdominal Pain, Nausea, Vomiting Genitourinary: Denies: Dysuria Musculoskeletal: Denies: Joint Pain, Joint Tenderness Skin: Denies: Rash, Wounds Neurological: Denies: Numbness, Tingling, Focal weakness Psychiatric: Denies: Anxiety, Depression, Homicidal Ideations, Suicidal Ideations Hematologic/ Lymphatic: Denies: Easy Bruising, Easy Bleeding - Physical Exam General: Alert - neg homans sign, no calf pain, min pain with irom/erom of hip, sgi, compts soft, arom prom ankle intact, no sensory deficits or motor deficits b/l LE, Oriented x3, Cooperative HEENT: Atraumatic, PERRLA, EOMI, Normocephalic Neck: Supple, No JVD, Negative Carotid Bruits Lungs: Clear to auscultation, Normal air movement Cardiovascular: Regular rate, No murmurs Abdomen: Bowel Sounds Present, Soft, Non Tender Extremities: No edema, Capillary Refill Less than 3 Seconds Skin: No rashes, No breakdown Musculoskeletal: No Tenderness to Palpation of Joints or Extremities - patient has neg heel strike, minimal pain with internal/external rotation of hip, pain with elevation of leg/straight leg raise at hip, Neurological: Cranial nerves II-XII grossly intact Psych/Mental Status: Normal Affect, Appropriate Vital Signs Temp Pulse Resp BP Pulse Ox 98.2 F 88 18 123/81 H 97 02/14/18 07:51 02/14/18 07:51 02/14/18 07:51 02/14/18 07:51 02/14/18 07:51 Oxygen Delivery Method Room Air Weight: 183 lb 10.321 oz Body Mass Index (BMI) 34.7 Intake and Output for Last 24 Hours 02/12/18 02/13/18 02/14/18 23:59 23:59 23:59 Intake Total 100 / 100 Balance 100 / 100 Laboratory Tests Past 24 Hrs 02/14/18 02/14/18 02/14/18 04:48 04:48 04:48 WBC 14.7 H RBC 4.13 L Hgb 12.8 Hct 37.6 MCV 91.0 MCH 31.0 MCHC 34.0 RDW 14.3 RDW Differential 46.5 H Plt Count 399 MPV 8.7 Immature Gran % (Auto) 0.800 Neut % (Auto) 50.5 Lymph % (Auto) 37.2 [place] % (Auto) 8.2 Eos % (Auto) 2.9 Baso % (Auto) 0.4 Absolute Neuts (auto) 7.4 Absolute Lymphs (auto) 5.48 H Total Counted Not Reportable Sodium 139 Potassium 3.4 L Chloride 103 Carbon Dioxide 26.0 Anion Gap 10 BUN 7 Creatinine 0.67 Estim Creat Clear Calc 81.70 Est GFR (MDRD) Af Amer 123 Est GFR (MDRD) Non-Af 102 BUN/Creatinine Ratio 10.5 Glucose 247 H Hemoglobin A1c 11.0 H Calcium 8.4 L Blood Type Antibody Screen 02/14/18 04:48 WBC RBC Hgb Hct MCV MCH MCHC RDW RDW Differential Plt Count MPV Immature Gran % (Auto) Neut % (Auto) Lymph % (Auto) [place] % (Auto) Eos % (Auto) Baso % (Auto) Absolute Neuts (auto) Absolute Lymphs (auto) Total Counted Sodium Potassium Chloride Carbon Dioxide Anion Gap BUN Creatinine Estim Creat Clear Calc Est GFR (MDRD) Af Amer Est GFR (MDRD) Non-Af BUN/Creatinine Ratio Glucose Hemoglobin A1c Calcium Blood Type A POSITIVE Antibody Screen NEGATIVE POC Glucose 02/14/18 07:00 POC Glucose 221 H Assessment/Plan All Active Problems Fracture of lesser trochanter of femur (Acute) Lesser trochanter fracture most likely from pull from the iliopsoas from the injury sustained 6 months ago No obvious acute pathology however because of her continued pain and will order an MRI to ensure that she does not have an occult fracture of her inotropic or of her femoral neck. Discussed with patient that some of her pain also sounds like it is coming from her back and would also recommend x-rays of her back however patient refused to get x-rays of her back today stating that she does not want to be here any longer and this wishes to get the F out. Patient also states she is seeing pain management Dr. Quiñones in the past who is an injection has been working with her back for quite some time and that has not alleviated any of her pain. Discussed other options for her including possible injection into the iliopsoas to see if that is the determinant to see if that is her pain is coming from however she is eaten lunch at this point I could do this as an outpatient basis. Discussed physical therapy and other options and patient was not very interested her very compliant with any options afforded her today in the hospital Told patient where our offices limb was located in to see us as an outpatient and we will schedule the iliopsoas injection to see if this were her pain is coming from. Was informed after I was in the OR and finalizing this note the patient left AGAINST MEDICAL ADVICE MRI essentially negative for acute pathology/ acute fracture.
[2018-02-14] MEDS: Enoxaparin 40 MG/0.4 ML Syringe SC (11:15)
[2018-02-14] MEDS: Lisinopril 20 MG Tablet PO (11:15)
[2018-02-14] MEDS: Ketorolac 30 MG/ML Syringe IV (11:16)
[2018-02-14 11:40] LABS: Bedside Glucose 152 mg/dL (70-110)
--- NOTE | 2018-02-14 14:50 | NURSING ---
LATE ENTRY - 1400 - DR NEWMAN IN TO SEE PT & DISCUSS MRI RESULTS. TOLD PT SHE WANTED TO WAIT UNTIL OFFICIAL RESULTS CAME BACK TO MAKE DECISION TO DC PT HOME TODAY. PT VERY FRUSTRATED WITH BEING IN HOSPITAL, STATING IM READY TO LEAVE. PT ASKED CAN I HAVE SOMETHING FOR PAIN? THIS NURSE EXPLAINED SHE HAD SCHEDULED TYLENOL & NEURONTIN DUE NOW. PT REFUSED STATING NO, ILL DEAL WITH IT. PT ASKING TO GO OUTSIDE TO SMOKE. EXPLAINED WE ARE A NONSMOKING FACILITY & ALSO MY CONCERN OF HER GOING OUTSIDE & FALLING GIVEN THAT FACT SHE IS HAVING HIP PAIN. PT ANGRY, STATING SO WHAT IF I FALL?. MOMENTS AFTER DR NEWMAN LEAVING PTS ROOM, DR SWANSON IN TO SEE PT. PT TELLING HIM SHE WANTS TO GO SMOKE. HE OFFERED HER NICOTINE PATCH. SHE REFUSED. AFTER LEAVING PTS ROOM, PT IMMEDIATELY PUT COST ACCOUNTING ANALYST LIGHT. WHEN THIS NURSE WENT IN, PT STATES GET THIS THING OUT OF MY ARM (HOLDING UP ARM WITH SALINE LOCK). I ASKED PT IF SHE WAS GOING TO LEAVE. PT STATES NO, IM GOING TO SMOKE, BUT I'LL BE BACK. PT LEFT FLOOR. DR NEWMAN CALLED BY PLEATER HAND WITH FINAL MRI RESULTS.
--- NOTE | 2018-02-14 14:59 | NURSING ---
PT REFUSED PAIN MEDICINE
--- NOTE | 2018-02-14 15:53 | NURSING ---
PATIENT LEFT FLOOR TO SMOKE WITH SISTER AND OTHER VISITOR OVER 1 HOUR AGO. CALLED PATIENT'S CELL PHONE LISTED ON DEMOGRAPHIC. PATIENT ANSWERED PHONE STATING SHE WAS NOT COMING BACK. PT STATES NURSE CARING FOR HER WAS RUDE AND WAS NOT HAPPY WITH CARE HERE. PT IS PLANNING ON GOING TO [place] TO BE SEEN. UNIVERSITY CONTROLLER AND MD NOTIFIED.
--- NOTE | 2018-02-15 07:42 | PCM.DC.SUM ---
Discharge Date and Diagnosis Date of Admission: 02/14/18 Date of Discharge: 02/14/18 - Primary Discharge Diagnosis Fracture of lesser trochanter of right femur - Secondary Discharge Diagnosis Chronic Problems Femur fracture, right (Chronic) HTN (hypertension) (Chronic) Diabetes (Chronic) Hospital Course and Treatment Dr. Schneider for orthopedic surgery Operations: None Procedures: None Summary of Care Provided: The patient is a 42 year old F admitted on account of subacute to chronic right hip pain. Xray and CT and MRI showed fracture of the lesser trochanter of the right hip. Dr. Schneider was consulted and saw the patient. Patient insisted on being allowed to go outside to smoke. We informed her that this was against hospital policy and patient essentially threw a fit. Patient subsequently eloped without the knowledge of the nursing floor staff. [] Home Medications: Medications to take at Discharge Metformin HCl [Glucophage] 500 mg PO TIDCM 02/16/14 Lisinopril [Lisinopril] 20 mg PO DAILY 03/20/14 Simvastatin [Zocor] 20 mg PO DAILY 03/20/14 Insulin Degludec [Tresiba Flextouch U-100] 34 units SQ DAILY 01/12/17 Gabapentin [Neurontin] 800 mg PO 4X/DAY 04/22/17 Primary Care Physician: Catalina Samuels NP-C [Primary Care Provider] - Medical Necessity - Tobacco Use Smoking Status: Current every day smoker - Cigarettes. Meaningful Use Info Meaningful Use Diagnoses (Choose all that apply): None applicable Code Visit OBSV E&M: 05861 Observation care discharge
== END 2018-02-14 15:52 | disposition left against medical advice (07) ==
LOC: ED 02-14 00:26 → MS2 02-14 02:58
PROVIDERS: Anesthesiology; Admitting Provider Hospitalist; Emergency Provider Emergency Medicine; Family Provider Nurse Practitioner Family; PCP Nurse Practitioner Family; Visit Provider Internal Medicine
DX: S72.12 Fracture of lesser trochanter of femur (principal); Y93.89 Activity, other specified; I10 Essential (primary) hypertension; X50.0XXD Overexertion from strenuous movement or load, subsequent encounter; E78.5 Hyperlipidemia, unspecified; Z79.84 Long term (current) use of oral hypoglycemic drugs; Z79.899 Other long term (current) drug therapy; E11.42 Type 2 diabetes mellitus with diabetic polyneuropathy; E11.649 Type 2 diabetes mellitus with hypoglycemia without coma; F17.210 Nicotine dependence, cigarettes, uncomplicated
CPT/HCPCS: 36415; 72195; 73502; 73700; 80048; 80053; 82962; 83036; 85025; 86850; 86900; 93005; 96372; 96374; 96375; 96376; 97802; 99218; 99285; A4216; G0378; J2405

== ENCOUNTER 2018-04-07 21:38 | Emergency (ER) | payer MEDICAID, SELFPAY ==
[2018-04-07 21:38] VITALS: BP 256/123; PULSE 109; RESP 18; TEMP 36.8; O2SAT 99; BMI 32.9
--- NOTE | 2018-04-07 22:15 | RAD_ITS ---
STUDY: X-RAY - LEFT SHOULDER REASON FOR EXAM: Female, 42 years old. Left-sided shoulder pain. TECHNIQUE: 4 view(s) of the shoulder. COMPARISON: None. FINDINGS: There is mild degenerative arthrosis of the glenohumeral articulation. There is degenerative arthrosis of the acromioclavicular joint without inferior osseous spur formation. There appears be a small bone fragment near the distal clavicle. This could be the result of an acute avulsion fracture. Normal acromion. There is no demonstrated inferior acromial spur. Normal humeral head and visualized proximal humerus. The soft tissue structures are unremarkable. Normal visualized pulmonary apex. RAD/Shoulder min 2 Views IMPRESSION: A questionable intra-articular avulsion fracture of the distal left clavicle. The acuity of this finding is uncertain. Electronically Signed: Kelsea Hawkins MD at 23:29 EDT , Service support ,
[2018-04-07] MEDS: HYDROcodone Bitartrate/Apap 5/325 Tablet PO (22:48)
--- NOTE | 2018-04-07 23:41 | ED.VISSUMM ---
- ER Visit Summary Date of Service: 04/07/18 Chief Complaint: Left shoulder pain History of Present Illness: The patient is a 42 F with left shoulder pain. This started suddenly just prior to arrival when the patient abducted her shoulder. She felt that it popped out of place and then popped back and when she abducted her shoulder. She never had this happen before. She denies any numbness or tingling. Denies any other complaints. She does have a history of hypertension Physical Examination: Blood pressure 256/123. Heart rate 109. Otherwise vitals normal. Patient is upset and tearful while on the phone. She is alert and oriented. Left shoulder shows normal inspection. No deformity. Skin appears normal. Range of motion intact. No focal tenderness. She is neurovascular intact distally. No axillary nerve distribution numbness. Test Results: X-rays show a possible avulsion fracture to the distal clavicle. Otherwise unremarkable. Emergency Department Course and Treatment: Patient received pain medication. X-rays were unremarkable. We did repeat her blood pressure and it is elevated. She will follow-up with her primary care doctor for recheck. Continue taking her medications. Return right away for any issues. Treatment Plan: As above Disposition: Discharge Impression: 1. Left shoulder pain 2. Hypertension This note was generated with [employer] dictation software. It may contain incorrect words, spelling, and punctuation that were not noted in review of the chart prior to signing ED Disposition - Plan for ED Patient: Chief Complaint: Upper Extremity Injury Referrals: Catalina Samuels, ABELARDO-C [Primary Care Provider] -
--- NOTE | 2018-04-07 23:44 | ED.DCSUM_ITS ---
- ER Visit Summary Date of Service: 04/07/18 Chief Complaint: Left shoulder pain History of Present Illness: The patient is a 42 F with left shoulder pain. This started suddenly just prior to arrival when the patient abducted her shoulder. She felt that it popped out of place and then popped back and when she abducted her shoulder. She never had this happen before. She denies any numbness or tingling. Denies any other complaints. She does have a history of hypertension Physical Examination: Blood pressure 256/123. Heart rate 109. Otherwise vitals normal. Patient is upset and tearful while on the phone. She is alert and oriented. Left shoulder shows normal inspection. No deformity. Skin appears normal. Range of motion intact. No focal tenderness. She is neurovascular intact distally. No axillary nerve distribution numbness. Test Results: X-rays show a possible avulsion fracture to the distal clavicle. Otherwise unremarkable. Emergency Department Course and Treatment: Patient received pain medication. X- rays were unremarkable. We did repeat her blood pressure and it is elevated. She will follow-up with her primary care doctor for recheck. Continue taking her medications. Return right away for any issues. Treatment Plan: As above Disposition: Discharge Impression: 1. Left shoulder pain 2. Hypertension This note was generated with [employer] dictation software. It may contain incorrect words, spelling, and punctuation that were not noted in review of the chart prior to signing ED Disposition - Plan for ED Patient: Chief Complaint: Upper Extremity Injury Referrals: Catalina Samuels, ABELARDO-C [Primary Care Provider] -
--- NOTE | 2018-04-07 23:44 | ED.DEP ---
ED Disposition - Plan for ED Patient: Chief Complaint: Upper Extremity Injury Instructions: ED Shoulder Pain [facility] Referrals: Catalina Samuels NP-C [Primary Care Provider] -
[2018-04-08] VITALS: BP 155/103; PULSE 81; RESP 18; O2SAT 98
== END 2018-04-08 00:03 | disposition home or self-care (01) ==
LOC: ED 23:05
PROVIDERS: Emergency Provider Emergency Medicine; PCP Nurse Practitioner Family
DX: M25.512 Pain in left shoulder (principal); I10 Essential (primary) hypertension; E11.9 Type 2 diabetes mellitus without complications; F17.210 Nicotine dependence, cigarettes, uncomplicated; Z79.4 Long term (current) use of insulin; Z79.899 Other long term (current) drug therapy
CPT/HCPCS: 73030; 99283

== ENCOUNTER → 2018-05-11 14:00 | Outpatient (CLI) | payer MEDICAID, SELFPAY | PROVIDERS: Family Provider Nurse Practitioner Family; PCP Nurse Practitioner Family; Referring Provider Otolaryngology Otolaryngology/Facial Plastic Surgery; Visit Provider Otolaryngology Otolaryngology/Facial Plastic Surgery | DX: J02.9 Acute pharyngitis, unspecified (principal) | CPT/HCPCS: 87070 ==

== ENCOUNTER → 2018-05-12 10:34 | Outpatient (CLI) | payer MEDICAID, SELFPAY ==
[2018-05-12 11:52] LABS: ALB/GLOB Ratio 0.8 RATIO (0.9-2.4); AST(SGOT) 21 U/L (15-37); Alanine Aminotransfer ALT/SGPT 34 U/L (13-56); Albumin, Serum 3.2 g/dL (3.2-5.0); Alkaline Phosphatase 107 U/L (45-117); Anion Gap 7 (5-15); BUN 10 mg/dL (7-18); BUN/Creat Ratio 13.7 RATIO (10-20); CPK Total, Creatine Kinase 43 U/L (26-192); Calcium,Total 8.9 mg/dL (8.5-10.1); Chloride 105 mmol/L (98-107); Cholesterol 229 mg/dL (200); Creatinine, Serum 0.73 mg/dL (0.55-1.02); EST Glomerular Filtration Rate 92 mL/min (>60); Est Glom Filt Rate - Afr Amer 112 mL/min (>60); Globulin 4.1 g/dL (2.2-4.2); Glucose 195 mg/dL (74-106); High Density Lipoprotein 43 mg/dL; Potassium 4.9 mmol/L (3.5-5.1); Protein, Total 7.3 g/dL (6.4-8.2); Sodium Level 140 mmol/L (136-145); Triglycerides 311 mg/dL; Very Low Density Lipoprotein 62 mg/dL (5-40)
[2018-05-12 11:57] LABS: Hemoglobin A1c 10.2 % (4.2-6.3)
== END ==
PROVIDERS: Family Provider Nurse Practitioner Family; PCP Nurse Practitioner Family; Referring Provider Nurse Practitioner Family; Visit Provider Nurse Practitioner Family
DX: E11.9 Type 2 diabetes mellitus without complications (principal)
CPT/HCPCS: 36415; 80053; 80061; 82550; 83036

== ENCOUNTER 2018-05-20 09:26 | Emergency (ER) | payer MEDICAID, SELFPAY ==
[2018-05-20 09:27] VITALS: BP 161/109; PULSE 110; RESP 18; TEMP 36.6; O2SAT 98; BMI 35.9
--- NOTE | 2018-05-20 09:36 | ED.RN ---
PT STATES THAT SHE IS GETTING INTO PAIN MANAGEMENT AND LOOKING FOR A SURGEON FOR HER HIP PAIN.
--- NOTE | 2018-05-20 10:01 | ED.VISSUMM ---
- ER Visit Summary Date of Service: 05/20/18 Chief Complaint: Right hip pain History of Present Illness: The patient is a 42 F who complains of pain along her right buttock down into her leg over the past 3 days or so. Patient denies new injury, but does state that she was admitted to this hospital recently with a broken right hip. 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 Patient states that she is going to be seeing pain management because of these findings. Physical Examination: Vital signs significant for blood pressure 161/109 and a heart rate of 110. Patient is lying on her left side. She is in no acute distress. Head and neck examination is unremarkable Heart is regular rate and rhythm at the time of my exam. Lung sounds are clear. Abdomen is soft and nontender. Back examination reveals reproducible tenderness of the right sciatic notch. She has good range of motion of the lower extremities with strong distal pulses and normal sensation. Patchy areas of psoriasis are noted on her skin. No sign of secondary infection. Test Results: [] Emergency Department Course and Treatment: Patient is given IM injections of Toradol and morphine here. She be given prednisone and Flexeril p.o. She is given prescriptions for naproxen, prednisone, and Flexeril. She has an appointment to see her primary care provider on the . Treatment Plan: [] Disposition: Discharge Impression: Sciatica This note was generated with [employer] dictation software. It may contain incorrect words, spelling, and punctuation that were not noted in review of the chart prior to signing ED Disposition - Plan for ED Patient: Chief Complaint: Lower Extremity Injury Referrals: Catalina Samuels NP-C [Primary Care Provider] -
--- NOTE | 2018-05-20 10:04 | ED.DCSUM_ITS ---
- ER Visit Summary Date of Service: 05/20/18 Chief Complaint: Right hip pain History of Present Illness: The patient is a 42 F who complains of pain along her right buttock down into her leg over the past 3 days or so. Patient denies new injury, but does state that she was admitted to this hospital recently with a broken right hip. 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 Patient states that she is going to be seeing pain management because of these findings. Physical Examination: Vital signs significant for blood pressure 161/109 and a heart rate of 110. Patient is lying on her left side. She is in no acute distress. Head and neck examination is unremarkable Heart is regular rate and rhythm at the time of my exam. Lung sounds are clear. Abdomen is soft and nontender. Back examination reveals reproducible tenderness of the right sciatic notch. She has good range of motion of the lower extremities with strong distal pulses and normal sensation. Patchy areas of psoriasis are noted on her skin. No sign of secondary infection. Test Results: [] Emergency Department Course and Treatment: Patient is given IM injections of Toradol and morphine here. She be given prednisone and Flexeril p.o. She is given prescriptions for naproxen, prednisone, and Flexeril. She has an appoi ntment to see her primary care provider on the . Treatment Plan: [] Disposition: Discharge Impression: Sciatica This note was generated with [employer] dictation software. It may contain incorrect words, spelling, and punctuation that were not noted in review of the chart prior to signing ED Disposition - Plan for ED Patient: Chief Complaint: Lower Extremity Injury Referrals: Catalina Samuels NP-C [Primary Care Provider] -
--- NOTE | 2018-05-20 10:04 | ED.DEP ---
ED Disposition - Plan for ED Patient: Disposition: Home or Assisted Living Chief Complaint: Lower Extremity Injury Instructions: ED Sciatica Prescriptions: Naproxen [Naprosyn] 500 mg PO BID PRN PRN #20 tablet PRN Reason: Pain Prednisone 10 mg PO UD #33 tablet Cyclobenzaprine [Flexeril] 10 mg PO TID PRN #20 tablet PRN Reason: Muscle Spasm Referrals: Catalina Samuels NP-C [Primary Care Provider] - Keep [facility] appointment
[2018-05-20] MEDS: Ketorolac 60 MG/2 ML Vial IM (10:09)
[2018-05-20] MEDS: Morphine 4 MG/ML Syringe IM (10:09)
[2018-05-20] MEDS: predniSONE 20 MG Tablet 60 MG PO (10:09)
[2018-05-20 10:41] VITALS: BP 121/76; PULSE 58; RESP 12
--- OUTSIDE RECORDS SUMMARY | 2018-08-22 13:04 | XMS RPT_ITS ---
:1975 Author Organization OHIP Support Name Relationship Address Phone BUBBA BARILLAS Unavailable [address] + [place] [address] UE Unavailable Unavailable Unavailable BUBBA BARILLAS Unavailable [address] + [place] [address] UE Unavailable Unavailable Unavailable BUBBA BARILLAS Unavailable [address] + [place] [address] UE Unavailable Unavailable Unavailable BUBBA BARILLAS Unavailable [address] + [place] [address] UE Unavailable Unavailable Unavailable BUBBA BARILLAS Unavailable [address] + [place] [address] UE Unavailable Unavailable Unavailable BUBBA BARILLAS Unavailable [address] + [place] [address] UE Unavailable Unavailable Unavailable BUBBA BARILLAS Unavailable [address] + [place] [address] UE Unavailable Unavailable Unavailable BUBBA BARILLAS Unavailable [address] + [place] [address] UE Unavailable Unavailable Unavailable BUBBA BARILLAS Unavailable [address] + [place] [address] UE Unavailable Unavailable Unavailable BUBBA BARILLAS Unavailable [address] + [place] [address] UE Unavailable Unavailable Unavailable BUBBA BARILLAS Unavailable [address] + [place] [address] UE Unavailable Unavailable Unavailable BUBBA BARILLAS Unavailable [address] + [place] [address] UE Unavailable Unavailable Unavailable BUBBA BARILLAS Unavailable [address] + [place] [address] UE Unavailable Unavailable Unavailable BUBBA BARILLAS Unavailable [address] + [place] [address] UE Unavailable Unavailable Unavailable BUBBA BARILLAS Unavailable Unavailable + BUBBA BARILLAS Unavailable Unavailable + BUBBA BARILLAS Unavailable [address] + [place] [address] UE Unavailable Unavailable Unavailable BUBBA BARILLAS Unavailable Unavailable + BUBBA BARILLAS Unavailable Unavailable + Care Team Providers Name Role Phone CRISTINA DORMAN, MS. PHELPS Attending Unavailable ERICA BURKETT, DR. YVES Gomez Primary Care Unavailable CRISTINA DORMAN, MS. PHELPS Attending Unavailable ERICA BURKETT, DR. YVES Gomez Primary Care Unavailable Lorson, Catalina Primary Care Unavailable Amelia Ladd Attending Unavailable Lorson, Catalina Primary Care Unavailable Anjel, Danny Attending Unavailable ABUNDIO TOWNSEND Primary Care Unavailable Don Moser Attending Unavailable ABUNDIO TOWNSEND Primary Care Unavailable Hobbs, Danny Attending Unavailable Hobbs, Danny Referring Unavailable Robotham, Nieves Attending Unavailable Lorson, Catalina Referring Unavailable Robotham, Nieves Attending Unavailable Robotham, Nieves Referring Unavailable Lorson, Catalina Primary Care Unavailable ABUNDIO TOWNSEND Primary Care Unavailable Asia Roque Attending Unavailable Asia Roque Referring Unavailable Agyepong, Chas Admitting Unavailable Wyatt, Gunjan Consulting Unavailable Fernyghe, Ifijen Attending Unavailable Lorson, Catalina Primary Care Unavailable Agyepong, Chas Admitting Unavailable Agyepong, Chas Attending Unavailable ABUNDIO TOWNSEND Primary Care Unavailable AgyepongChas Consulting Unavailable Agyepong, Chas Admitting Unavailable Pao, Ifijen Attending Unavailable ABUNDIO TOWNSEND Primary Care Unavailable Wyatt, Gunjan Consulting Unavailable Fernyghe, Ifijen Consulting Unavailable John, [place] Attending Unavailable Agyepong, Chas Referring Unavailable ABUNDIO TOWNSEND Primary Care Unavailable Ted Garzon Attending Unavailable Wyatt, Gunjan Attending Unavailable Tulio Redding Attending Unavailable Tulio Redding Referring Unavailable Lorson, Catalina Primary Care Unavailable Lorson, Catalina Attending Unavailable Lorson, Catalina Referring Unavailable Lorson, Catalina Primary Care Unavailable PROBLEMS PROBLEMS DATE TYPE CONDITION / CODE ATTENDING STATUS SOURCE Unknown R10.31 - Right lower Robotham, Active [place] 9 quadrant pain / [facility] R10.31(ICD-10) Hospital Repository Unknown E13.40 - Other Hobbs, Danny Active [place] 8 specified diabetes Community mellitus with diabetic Hospital neuropathy, Repository unspecified / E13.40(ICD-10) Unknown K40.90 - Unilateral Hobbs, Danny Active [place] 8 inguinal hernia, Community without obstruction or Hospital gangrene, not Repository specified as recurrent / K40.90(ICD-10) Unknown R94.31 - Abnormal John, [place] Active [place] 8 electrocardiogram Community [ECG] [EKG] / Hospital R94.31(ICD-10) Repository Unknown I10 - Essential John, Ramiro Active [place] 8 (primary) hypertension Community / I10(ICD-10) Hospital Repository Unknown M54.9 - Dorsalgia, Mya, Asia Active [place] 8 unspecified / Community M54.9(ICD-10) Hospital Repository Admitting Encounter for issue of [place] [address] Diagnosis repeat prescription / [facility] Z76.0(ICD-10) Repository Admitting Type 2 diabetes CRISTINA [place] [address] Diagnosis mellitus without MS. CATALINA [facility] complications / Repository E11.9(ICD-10) PROCEDURES PROCEDURES No Procedure Records FoundRESULTS RESULTS ABDOMEN/PEL W ORAL CONT Observed: 06/12/2018 Status: F Source: [place] ONLY 1:56 PM [facility] REPOSITORY [facility] Imaging Services [address] [place] [address] Abdomen/Pel W ORAL Cont Only MR#: [id number] Acct: [id number] Name: NIKOLAS SELLERS Rep #: [id number] : 1975 F 42 From: Roland Hightower MD PCP: NO Husain Status: REG CLI Study: Abdomen/Pel W ORAL Cont Only Date of Exam: 06/12/18 Exam# [id number] Ordering Dr: Nieves Art MD STUDY: CT ABDOMEN AND PELVIS WITHOUT CONTRAST REASON FOR EXAM: Female, 42 years old. Right sided/groin pain x 8 months, getting worse, possible lifting injury. RADIATION DOSAGE (If Supplied By Facility): CTDIvol = ( 13.94 ) mGy, DLP = ( 795.52 ) mGycm TECHNIQUE: Transaxial images were obtained from the dome of the diaphragm to the symphysis pubis with oral contrast, and without intravenous contrast. Sagittal and coronal images were reconstructed. Individualized dose optimization techniques were used for this CT. COMPARISON: CT abdomen and pelvis December 27, 2017; MRI pelvis February 14, 2018. FINDINGS: The visualized lung bases are unremarkable. The visualized portions of the heart are within normal limits. Normal liver. The portal vein diameter is 17 mm. Normal gallbladder and extrahepatic biliary system. The common bile duct diameter is 7 mm. Normal spleen. Normal pancreas. Normal bilateral adrenal glands. Normal right kidney. Normal left kidney. No hydronephrosis. Normal visualized stomach. Normal small intestine. Normal colon. The appendix is visualized on series 602 images 64-69 and appears normal. There is diffuse atherosclerotic calcification of the distal abdominal aorta and common iliac arteries, without a demonstrated aneurysm. Normal inferior vena cava. Normal retroperitoneum. Normal urinary bladder. Normal visualized uterus, mildly tilted left of midline. There is a very small umbilical hernia containing fat. There are multilevel degenerative changes of the visualized spine as well as degenerative periarticular sclerosis of the inferior right sacroiliac joint. CT/Abdomen/Pel W ORAL Cont Only IMPRESSION: 1. Aortoiliac atherosclerotic calcific plaquing. There is no demonstrated aneurysm. 2. No demonstrated abdominal/pelvic mass or fluid collection. 3. Degenerative changes of the spine and inferior right sacroiliac joint. Electronically Signed: Tim Hightower MD at 16:24 EST , Service support , CC: NO Evans; Nieves Art MD [place]er: Signed SURGERY VISIT REPORT Observed: 06/07/2018 Status: F Source: [place] 8:27 AM [facility] REPOSITORY [facility] [address] [place] [address] OFFICE VISIT Date of Service: 06/06/18 MR#: [id number] Acct: [id number] Name: NIKOLAS SELLERS Rep #: [id number] : 1975 Provider: Nieves Art MD Age/Sex: 42/F Location: [facility] Status: Signed Intake Vital Signs06/06/18 Body Mass Index (BMI) 36.4 06/06/18 Height 5 ft 1 in 06/06/18 Weight: 190 lb Intake Visit Reasons: [facility] ER 06/01 Inguinal Hernia Chief Complaint: rt hip pain Velocity Shooter Required: No Is patient in pain?: Yes (Right groin) Pain scale (1-10): 10 Allergies No Known Allergies Allergy (Verified 06/06/18 15:33) Medications Metformin HCl [Glucophage] 500 mg PO 4X/DAY 02/16/14 [History Confirmed 06/06/18] Lisinopril 20 mg PO DAILY 03/20/14 [History Confirmed 06/06/18] Simvastatin [Zocor] 20 mg PO DAILY 03/20/14 [History Confirmed 06/06/18] Gabapentin [Neurontin] 800 mg PO 4X/DAY 04/22/17 [History Confirmed 06/06/18] Cyclobenzaprine [Flexeril] 10 mg PO TID PRN #20 tab 05/20/18 [Rx Confirmed 06/06/18] Cyanocobalamin (Vitamin B-12) [Vitamin B-12] 1,000 mcg PO DAILY 06/02/18 [History Confirmed 06/06/18] L.acidoph,Paracasei, B.lactis [Probiotic] 1 ea PO DAILY 06/02/18 [History Confirmed 06/06/18] Pyridoxine HCl (Vitamin B6) [Vitamin B-6] 25 mg PO DAILY 06/02/18 [History Confirmed 06/06/18] PFSH Medical History Acid reflux (Acute) Nausea (Acute) Abdominal pain (Acute) Depression (Acute) Femur fracture, right (Chronic) HTN (hypertension) (Chronic) Diabetes (Chronic) Fracture of lesser trochanter of femur (Acute) Family History Mother Arthritis Diabetes Father Diabetes Hypertension High cholesterol Social History Smoking Status: Current every day smoker alcohol intake: never substance use type: does not use caffeine: No frequency: does not exercise HPI HPI HPI: NIKOLAS SELLERS, is a 42 F who presents to the office today for right groin pain. Patient states about 8-9 months ago she did help lift a septic tank at her sister's and she felt like she heard a tear at that time. She states that it lasts a few days the pain and seemed to gotten worse to she describes as achy/throbbing and states that it can be 10/10 patient denies feeling any kind of bulge. She states to make it feel better she has taken a hot bath or put a heating pad on it. Patient states she is able to eat meat but does get some nausea due to the pain but has not had any emesis. Patient's been having normal bowel function and had normal bowel movement last night. She states she is tried the ibuprofen Tylenol and Advil for pain but did not know if that really helped she did go to the ER and she was given some hydrocodone. Exam Const General: cooperative, comfortable, no acute distress GI Inspection: non-distended, obesity Palpation: soft, no guarding, nontender, no hernias Other: Right groin unable to appreciate hernia on exam, patient is tender to palpation in the right groin, left groin no hernia appreciated on exam Assessment AND Plan Problems 1. Right groin pain R10.31 Plan Unable to appreciate an obvious hernia in the right groin we will check a CT abdomen pelvis with p.o. contrast. Recommend patient try scheduled ibuprofen with food to see if that helps. Patient was agreeable plan. Nieves Art M.D. Pager: [phone] [facility] [address] [place] [address], [facility], [address] [place] [address] Office: [phone] Orders Orders: Plan Detail Follow Up We will contact patient after imaging completed Coding Level of Care Code Off vis,new,level 3 Diagnoses Right groin pain R10.31 06/07/18 0827 <Electronically signed by Nieves Art MD> Date Nieves Art MD Cosigner Signature: Date (if applicable) CC: NO Evans EMERGENCY DEPARTMENT Observed: 06/02/2018 Status: F Source: [place] SUMMARY 6:22 PM [facility] REPOSITORY [facility] Medical Records Department [address] [place] [address] Emergency Department Summary 06/02/18 1742 MR#: [id number] Acct: [id number] Name: NIKOLAS SELLERS Rep #: [id number] : 1975 42 From: Danny Hobbs MD PCP: NO Husain Status: REG ER - ER Visit Summary Date of Service: 06/02/18 Chief Complaint: Pain right groin region History of Present Illness: The patient is a 42 F who complains of pain right groin region, medial inguinal area, for the past couple of weeks. She was seen May 20 and diagnosed with back pain with sciatica. She denies fever, chills or night sweats. She denies nausea, vomiting or diarrhea. She denies dysuria, frequency, urgency or hematuria. She denies vaginal discharge, vaginal bleeding or dyspareunia. She denies history of hernia. states he has had bilateral hernia and if she requires a surgeon request Dr. Ayala who repaired his hernia. There is no history of trauma. She denies discoloration of the skin or any lesions. She denies flank pain or back pain presently. Physical Examination: Vital signs noted. Blood pressure pending at time of this report. There is pain to palpation medial third of the right inguinal area. Having patient Valsalva and cough results in bulge and significant discomfort. There is no obvious palpable defect. There is no inguinal lymphadenopathy. Femoral pulses palpable. There is no rash or skin lesions noted. There is no CVA tenderness noted. There is no suprapubic discomfort. Test Results: None were obtained Emergency Department Course and Treatment: IV was established and she was treated with IV analgesics. Last creatinine was 0.73 on May 12, 2018. Treatment Plan: Patient was referred to Dr. Kendell Ayala Disposition: Discharged home in stable improved condition. She was reassessed at 1815. Her pain is 95% resolved. She was discharged with prescription for opiate analgesia since she has type 2 diabetes. Impression: Right inguinal pain secondary to hernia This note was generated with YouTab dictation software. It may contain incorrect words, spelling, and punctuation that were not noted in review of the chart prior to signing ED Disposition - Plan for ED Patient: Disposition: Home or Assisted Living Chief Complaint: Female C/O Instructions: ED Hernia Inguinal Prescriptions: Hydrocodone Bitart/Apap 5-325 [[place] 5MG-325MG] 1 tablet PO Q6H PRN PRN 3 Days #10 tablet PRN Reason: Pain Referrals: Catalina Evans NP-C [Primary Care Provider] - Kendell Ayala MD [STAFF PHYSICIAN] - 1 Week Additional Instructions: Your prescription was electronically transmitted to [facility]. What to do if you have Problems For any increased pain, shortness of breath, bleeding, nausea or vomiting, chest pain, or any unexpected problems, contact your Primary Care Provider. Call [facility] ([phone]) or report to the closest Emergency Room. Call 911 if necessary. 06/02/18 182 <Electronically signed by Danny Hobbs MD> Date Danny Hobbs MD Cosigner Signature (If Indicated): Date CC: NO Evans; Kendell Ayala MD EMERGENCY DEPARTMENT Observed: 05/20/2018 Status: F Source: [place] SUMMARY 3:42 PM [facility] REPOSITORY [facility] Medical Records Department [address] [place] [address] Emergency Department Summary 05/20/18 1001 MR#: [id number] Acct: [id number] Name: NIKOLAS SELLERS Rep #: [id number] : 1975 42 From: Amelia Ladd MD PCP: NO Husain Status: DEP ER - ER Visit Summary Date of Service: 05/20/18 Chief Complaint: Right hip pain History of Present Illness: The patient is a 42 F who complains of pain along her right buttock down into her leg over the past 3 days or so. Patient denies new injury, but does state that she was admitted to this hospital recently with a broken right hip. 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 Patient states that she is going to be seeing pain management because of these findings. Physical Examination: Vital signs significant for blood pressure 161/109 and a heart rate of 110. Patient is lying on her left side. She is in no acute distress. Head and neck examination is unremarkable Heart is regular rate and rhythm at the time of my exam. Lung sounds are clear. Abdomen is soft and nontender. Back examination reveals reproducible tenderness of the right sciatic notch. She has good range of motion of the lower extremities with strong distal pulses and normal sensation. Patchy areas of psoriasis are noted on her skin. No sign of secondary infection. Test Results: [] Emergency Department Course and Treatment: Patient is given IM injections of Toradol and morphine here. She be given prednisone and Flexeril p.o. She is given prescriptions for naproxen, prednisone, and Flexeril. She has an appointment to see her primary care provider on the . Treatment Plan: [] Disposition: Discharge Impression: Sciatica This note was generated with YouTab dictation software. It may contain incorrect words, spelling, and punctuation that were not noted in review of the chart prior to signing ED Disposition - Plan for ED Patient: Chief Complaint: Lower Extremity Injury Referrals: Catalina Evans NP-C [Primary Care Provider] - What to do if you have Problems For any increased pain, shortness of breath, bleeding, nausea or vomiting, chest pain, or any unexpected problems, contact your Primary Care Provider. Call [facility] ([phone]) or report to the closest Emergency Room. Call 911 if necessary. 05/20/18 1795 <Electronically signed by Amelia Ladd MD> Date Amelia Ladd MD Cosigner Signature (If Indicated): Date CC: COUNSELING CASE MANAGERAshleyC Catalina Evans DISCHARGE INSTRUCTION Observed: 05/20/2018 Status: F Source: [place] 10:05 AM [facility] REPOSITORY [facility] Medical Records Department [address] [place] [address] Discharge Instruction 05/20/18 1004 MR#: [id number] Acct: [id number] Name: NIKOLAS SELLERS Rep #: [id number] : 1975 42 From: Amelia Ladd MD PCP: NO Husain Status: REG ER ED Disposition - Plan for ED Patient: Disposition: Home or Assisted Living Chief Complaint: Lower Extremity Injury Instructions: ED Sciatica Prescriptions: Naproxen [Naprosyn] 500 mg PO BID PRN PRN #20 tablet PRN Reason: Pain Prednisone 10 mg PO UD #33 tablet Cyclobenzaprine [Flexeril] 10 mg PO TID PRN #20 tablet PRN Reason: Muscle Spasm Referrals: Catalina Evans NP-C [Primary Care Provider] - Keep Delgado appointment What to do if you have Problems For any increased pain, shortness of breath, bleeding, nausea or vomiting, chest pain, or any unexpected problems, contact your Primary Care Provider. Call [facility] ([phone]) or report to the closest Emergency Room. Call 911 if necessary. 05/20/18 1005 <Electronically signed by Amelia Ladd MD> Date Amelia Ladd MD Cosigner Signature (If Indicated): Date CC: COUNSELING CASE MANAGER-C Catalina Evans COMPREHENSIVE METABOLIC Collected: 05/12/2018 Status: F Source: [place] 11:07 AM [facility] REPOSITORY TYPE CODE TESTS RESULT OUT OF RANGE REFERENCE UNITS LAB L501.0100 74-106 mg/dL High GLU 195 Result Comment: Fasting Glucose result greater than or equal to 126 mg/dL suggests DIABETES MELLITUS per A.D.A. criteria. Please note revised GLUCOSE reference range effective 2017. LAB L501.1000 7-18 mg/dL Normal BUN 10 LAB L501.1100 0.55-1.02 mg/dL Normal CREAT,SERUM 0.73 Result Comment: The validity of the calculated GFR AND GFRAA in patients over 70 years has not been determined. Clinical correlation is essential. LAB L501.1110 >60 mL/min Normal EST GFR 92 Result Comment: Non- GFR Calc LAB L501.1115 >60 mL/min Normal EST GFR - AA 112 Result Comment: GFR Calc LAB L501.1300 10-20 RATIO Normal BUN/CRE 13.7 LAB L501.1500 6.4-8.2 g/dL T Normal PROT 7.3 LAB L501.1800 3.2-5.0 g/dL Normal ALB 3.2 LAB L501.1950 2.2-4.2 g/dL Normal GLOB 4.1 LAB L501.2000 0.9-2.4 RATIO Low A/G 0.8 LAB L501.2200 8.5-10.1 mg/dL CA Normal 8.9 LAB L501.4100 15-37 U/L Normal AST 21 LAB L501.4305 45-117 U/L Normal ALK P 107 LAB L501.4405 13-56 U/L Normal ALT 34 LAB L501.4600 0.20-1.00 mg/dL T Normal BILI 0.30 LAB L501.5300 136-145 mmol/L NA Normal 140 LAB L501.5600 3.5-5.1 mmol/L K Normal 4.9 LAB L501.5900 98-107 mmol/L CL Normal 105 LAB L501.6100 21.0-32.0 mmol/L Normal CO2 28.0 LAB L501.6200 5-15 Normal GAP 7 Performed By: #### L500.4050, L500.4100, L501.3620 #### [facility] [address] [place], [place], [id number] LIPID PROFILE Collected: 05/12/2018 Status: F Source: [place] 11:07 AM [facility] REPOSITORY TYPE CODE TESTS RESULT OUT OF RANGE REFERENCE UNITS LAB L501.4900 200 mg/dL High CHOL 229 Result Comment: <200 mg/dL Desirable 200-240 mg/dL Borderline >240 mg/dL High Risk LAB L501.5000 mg/dL High TRIG 311 Result Comment: The drugs N-Acetylcysteine and Metamizole may falsely depress this assay. Serum Triglycerides Reference Interval Normal <150 mg/dL Borderline high 150 - 199 mg/dL High 200 - 499 mg/dL Very High > or = 500 mg/dL LAB L501.6400 mg/dL Normal HDL 43 Result Comment: The drugs N-Acetylcysteine and Metamizole may falsely depress this assay. Reference Range HDL <40 mg/dL Low HDL Cholesterol HDL >or= 60 mg/dL High HDL Cholesterol LAB L501.6500 0-130 mg/dL Normal LDL 124 LAB L501.6600 5-40 mg/dL High VLDL 62 Performed By: #### L500.4050, L500.4100, L501.3620 #### [facility] [address] [facility] [place], [place], [id number] CPK TOTAL, CREATINE Collected: 05/12/2018 Status: F Source: [place] 11:07 AM [facility] REPOSITORY TYPE CODE TESTS RESULT OUT OF RANGE REFERENCE UNITS LAB L501.3620 26-192 U/L Normal CPK TOTAL 43 Performed By: #### L500.4050, L500.4100, L501.3620 #### [facility] [address] [facility] [place], [place], [id number] HEMOGLOBIN A1C Collected: 05/12/2018 Status: F Source: [place] 11:07 AM [facility] REPOSITORY TYPE CODE TESTS RESULT OUT OF RANGE REFERENCE UNITS LAB L501.9985 4.2-6.3 % High HGB A1C 10.2 Performed By: #### L501.9985 #### [facility] [address] [place], [place], [address] Observed: 05/11/2018 Status: F Source: [place] CULTURE, THROAT 2:00 PM [facility] REPOSITORY Culture, Throat Normal throat ira isolated. No beta-hemolytic streptococcus isolated. Performed By: #### M100.1000 #### [facility] [address] [place], [address] PROGRESS Observed: 04/18/2018 Status: COMPLETED Source: [place] 3:01 PM [facility] REPOSITORY HNO ID: [id number] Author: Connor Almeida Service: (none) Author Type: Physician Type: Progress Notes Filed: 04/18/2018 4:01 PM Note Text: Patient presents with: ST on right side, right ear pain, runny nose and RINALDI: x 1 week HPI: Feeling sick for 1 week. Her granddaughter is sick now also. Positive symptoms: right Sore throat, right Earache, Rhinorrhea, frontal Headache, Negative symptoms: Cough, Fever, OTC: Cold Medicine MEDICATIONS: Current Outpatient Prescriptions: insulin degludec (TRESIBA FLEXTOUCH U-100) 100 unit/mL (3 mL) injection Inject 10 Units subcutaneously once daily. metoprolol tartrate, short acting, (LOPRESSOR) 50 mg tablet Take 0.5 tablets by mouth twice daily. insulin needles, DISPOSABLE, (BD INSULIN PEN NEEDLE UF) 31 gauge x 5/16 ndle Use once daily as directed with insulin DM: yes Insulin: yes DX:E11.9 naproxen (NAPROSYN) 500 mg tablet Take 1 tablet by mouth twice daily with meals. As needed. gabapentin (NEURONTIN) 300 mg capsule Take 2 capsules by mouth daily at bedtime. Add morning dose 1 to pills metFORMIN ER (GLUCOPHAGE XR) 500 mg 24 hr tablet Take 1-2 tablets by mouth twice daily with meals. ranitidine (ZANTAC) 150 mg tablet TAKE 1 TABLET TWICE DAILY lisinopril (ZESTRIL, PRINIVIL) 20 mg tablet TAKE 1 TABLET DAILY baclofen (LIORESAL) 10 mg tablet Take 1 tablet by mouth twice daily for 30 days. atorvastatin (LIPITOR) 40 mg tablet Take 1 tablet by mouth once daily. blood sugar diagnostic (FREESTYLE LITE STRIPS) test strip Use as instructed three times daily. No insulin. Dx: E1.9 Blood-Glucose Meter (FREESTYLE LITE METER) monitoring kit Use once daily as directed. Freestyle LITE Meter Kit - Dx: Type 2 DM - Controlled E11.9 Blood-Glucose Meter (FREESTYLE LITE METER) monitoring kit Freestyle LITE Meter Kit - Use as instructed once daily. No insulin. 250.00 Lancets (FREESTYLE LANCETS) lancets Test blood sugar(s) one times daily. Dx:250.00 Insulin: No pregabalin (LYRICA) 75 mg capsule Take 1 capsule by mouth twice daily. (Patient not taking: Reported on 04/18/2018 ) DULoxetine (CYMBALTA) 30 mg capsule Take 1 capsule by mouth every day. Take 60 mg in the morning and 30 mg in the afternoon (Patient not taking: Reported on 04/18/2018 ) DULoxetine (CYMBALTA) 60 mg capsule Take 1 capsule by mouth every morning. NIFEdipine ER (PROCARDIA XL) 30 mg 24 hr tablet Take 1 tablet by mouth once daily. (Patient not taking: Reported on 04/18/2018) rOPINIRole (REQUIP) 2 mg tablet Take 1 tablet by mouth daily at bedtime. (Patient not taking: Reported on 04/18/2018 ) No current facility-administered medications for this visit. ALLERGIES: ALLERGIES Allergen Reactions - Hydrochlorothiazide Rash photodermatitis - Pravastatin Other: See Comments muscle pain VITALS: BP 136/84 Pulse 103 Temp 36.9 ?C (98.4 ?F) (Tympanic) Resp 18 Wt 82.1 kg (181 lb) SpO2 97% BMI 33.11 kg/m? PHYSICAL EXAM: GEN: Pleasant, in no acute distress. HEENT: PERRL, EOMI, conjunctiva clear Ears: TMs without erythema, bulge, or effusion Sinuses: non-tender frontal sinus, non-tender maxillary sinuses Throat: moist mucous membranes, mild erythema, 3+ right tonsil, 2+left, no exudate Neck: supple, no thyromegaly, no lymphadenopathy HEART: regular rate and rhythm, no murmurs LUNGS: clear to auscultation, no wheezes or crackles, no increased WOB ASSESSMENT/PLAN: 1. Sore throat - ICD9: 462, ICD10: J02.9 - Rapid Strep negative in the office today - Discussed supportive care treatment cold medicine, rest and analgesia. - RAPID STREP TEST B/O Connor Almeida MD CNOV Observed: 04/18/2018 Status: COMPLETED Source: [place] 2:45 PM [facility] REPOSITORY Office Visit (UCWSTR) NIKOLAS SELLERS ([id number]) 1975 F Date Time Provider Department 04/18/18 2:45 PM CONNOR ALMEIDA WSTR During your visit today, we recorded the following information about you: Temperature Pulse Respiration Blood pressure 98.4 degrees 103/minute 18/minute 136/84 Weight 82.1 kg Connor Almeida MD 04/18/2018 4:01 PM Signed Patient presents with: ST on right side, right ear pain, runny nose and RINALDI: x 1 week HPI: Feeling sick for 1 week. Her granddaughter is sick now also. Positive symptoms: right Sore throat, right Earache, Rhinorrhea, frontal Headache, Negative symptoms: Cough, Fever, OTC: Cold Medicine MEDICATIONS: Current Outpatient Prescriptions: insulin degludec (TRESIBA FLEXTOUCH U-100) 100 unit/mL (3 mL) injection Inject 10 Units subcutaneously once daily. metoprolol tartrate, short acting, (LOPRESSOR) 50 mg tablet Take 0.5 tablets by mouth twice daily. insulin needles, DISPOSABLE, (BD INSULIN PEN NEEDLE UF) 31 gauge x 5/16 ndle Use once daily as directed with insulin DM: yes Insulin: yes DX:E11.9 naproxen (NAPROSYN) 500 mg tablet Take 1 tablet by mouth twice daily with meals. As needed. gabapentin (NEURONTIN) 300 mg capsule Take 2 capsules by mouth daily at bedtime. Add morning dose 1 to pills metFORMIN ER (GLUCOPHAGE XR) 500 mg 24 hr tablet Take 1-2 tablets by mouth twice daily with meals. ranitidine (ZANTAC) 150 mg tablet TAKE 1 TABLET TWICE DAILY lisinopril (ZESTRIL, PRINIVIL) 20 mg tablet TAKE 1 TABLET DAILY baclofen (LIORESAL) 10 mg tablet Take 1 tablet by mouth twice daily for 30 days. atorvastatin (LIPITOR) 40 mg tablet Take 1 tablet by mouth once daily. blood sugar diagnostic (FREESTYLE LITE STRIPS) test strip Use as instructed three times daily. No insulin. Dx: E1.9 Blood-Glucose Meter (FREESTYLE LITE METER) monitoring kit Use once daily as directed. Freestyle LITE Meter Kit - Dx: Type 2 DM - Controlled E11.9 Blood-Glucose Meter (FREESTYLE LITE METER) monitoring kit Freestyle LITE Meter Kit - Use as instructed once daily. No insulin. 250.00 Lancets (FREESTYLE LANCETS) lancets Test blood sugar(s) one times daily. Dx:250.00 Insulin: No pregabalin (LYRICA) 75 mg capsule Take 1 capsule by mouth twice daily. (Patient not taking: Reported on 04/18/2018 ) DULoxetine (CYMBALTA) 30 mg capsule Take 1 capsule by mouth every day. Take 60 mg in the morning and 30 mg in the afternoon (Patient not taking: Reported on 04/18/2018 ) DULoxetine (CYMBALTA) 60 mg capsule Take 1 capsule by mouth every morning. NIFEdipine ER (PROCARDIA XL) 30 mg 24 hr tablet Take 1 tablet by mouth once daily. (Patient not taking: Reported on 04/18/2018) rOPINIRole (REQUIP) 2 mg tablet Take 1 tablet by mouth daily at bedtime. (Patient not taking: Reported on 04/18/2018 ) No current facility-administered medications for this visit. ALLERGIES: ALLERGIES Allergen Reactions - Hydrochlorothiazide Rash photodermatitis - Pravastatin Other: See Comments muscle pain VITALS: BP 136/84 Pulse 103 Temp 36.9 ?C (98.4 ?F) (Tympanic) Resp 18 Wt 82.1 kg (181 lb) SpO2 97% BMI 33.11 kg/m? PHYSICAL EXAM: GEN: Pleasant, in no acute distress. HEENT: PERRL, EOMI, conjunctiva clear Ears: TMs without erythema, bulge, or effusion Sinuses: non-tender frontal sinus, non-tender maxillary sinuses Throat: moist mucous membranes, mild erythema, 3+ right tonsil, 2+left, no exudate Neck: supple, no thyromegaly, no lymphadenopathy HEART: regular rate and rhythm, no murmurs LUNGS: clear to auscultation, no wheezes or crackles, no increased WOB ASSESSMENT/PLAN: 1. Sore throat - ICD9: 462, ICD10: J02.9 - Rapid Strep negative in the office today - Discussed supportive care treatment cold medicine, rest and analgesia. - RAPID STREP TEST B/O Connor Almeida MD Referring Provider: SELF [[id number]] Allergies As of Date: 04/18/2018 Noted Allergy Reaction HYDROCHLOROTHIAZIDE 01/25/2013 2 - Rash Comments: photodermatitis PRAVASTATIN 03/26/2012 14 - Other: See Comments Comments: muscle pain Date Reviewed: 04/18/2018 Reviewed by: Tomasa Graham LPN - Fully Assessed Reason for Visit: ST on right side, right ear pain, runny nose and RINALDI [Other] Cmt: x 1 week Primary Visit Diagnosis:Sore throat [J02.9] Order(s):RAPID STREP TEST B/O [1123040] Order #: [id number] Prescriptions as of 04/18/2018 Sig: INSULIN DEGLUDEC (U-100) 100 * Inject 10 Units subcutaneousl* METOPROLOL TARTRATE 50 MG TAB* Take 0.5 tablets by mouth twi* PEN NEEDLE, DIABETIC 31 GAUGE* Use once daily as directed wi* NAPROXEN 500 MG TABLET Take 1 tablet by mouth twice * GABAPENTIN 300 MG CAPSULE Take 2 capsules by mouth alva* METFORMIN ER 500 MG TABLET,EX* Take 1-2 tablets by mouth twi* RANITIDINE 150 MG TABLET TAKE 1 TABLET TWICE DAILY LISINOPRIL 20 MG TABLET TAKE 1 TABLET DAILY BACLOFEN 10 MG TABLET Take 1 tablet by mouth twice * ATORVASTATIN 40 MG TABLET Take 1 tablet by mouth once d* BLOOD SUGAR DIAGNOSTIC STRIPS Use as instructed three times* BLOOD-GLUCOSE METER KIT Use once daily as directed. * BLOOD-GLUCOSE METER KIT Freestyle LITE Meter Kit - U* LANCETS Test blood sugar(s) one times* PREGABALIN 75 MG CAPSULE Take 1 capsule by mouth twice* Patient not taking: Reported on 04/18/2018 DULOXETINE 30 MG CAPSULE,CHELSEA* Take 1 capsule by mouth every* Patient not taking: Reported on 04/18/2018 DULOXETINE 60 MG CAPSULE,CHELSEA* Take 1 capsule by mouth every* NIFEDIPINE ER 30 MG TABLET,EX* Take 1 tablet by mouth once d* Patient not taking: Reported on 04/18/2018 ROPINIROLE 2 MG TABLET Take 1 tablet by mouth daily * Patient not taking: Reported on 04/18/2018 Problem List As Of Date 04/18/2018 Noted Resolved BENIGN HYPERTENSION [I10] INVALID FOR* More... HYPERLIPIDEMIA NEC/NOS [E78.5] INVALID FOR* Psoriasis [L40.8] INVALID FOR* Pain in limb [M79.609] INVALID FOR*09/15/2015 CALCANEAL SPUR [M77.30] INVALID FOR* Tendonitis [M77.9] INVALID FOR*09/15/2015 Diabetes mellitus type 2, controlled, without c*INVALID FOR* More... 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 Recurrent major depression in partial remission*INVALID FOR* More... RLS (restless legs syndrome) [G25.81] INVALID FOR* Encounter Status:Closed by CONNOR ALMEIDA MD on 04/18/18 EMERGENCY DEPARTMENT Observed: 04/08/2018 Status: F Source: [place] SUMMARY 12:17 AM [facility] REPOSITORY [facility] Medical Records Department [address] [place] [address] Emergency Department Summary 04/07/18 2341 MR#: [id number] Acct: [id number] Name: NIKOLAS SELLERS Rep #: [id number] : 1975 42 From: Ted Garzon MD PCP: NO Husain Status: DEP ER - ER Visit Summary Date of Service: 04/07/18 Chief Complaint: Left shoulder pain History of Present Illness: The patient is a 42 F with left shoulder pain. This started suddenly just prior to arrival when the patient abducted her shoulder. She felt that it popped out of place and then popped back and when she abducted her shoulder. She never had this happen before. She denies any numbness or tingling. Denies any other complaints. She does have a history of hypertension Physical Examination: Blood pressure 256/123. Heart rate 109. Otherwise vitals normal. Patient is upset and tearful while on the phone. She is alert and oriented. Left shoulder shows normal inspection. No deformity. Skin appears normal. Range of motion intact. No focal tenderness. She is neurovascular intact distally. No axillary nerve distribution numbness. Test Results: X-rays show a possible avulsion fracture to the distal clavicle. Otherwise unremarkable. Emergency Department Course and Treatment: Patient received pain medication. X-rays were unremarkable. We did repeat her blood pressure and it is elevated. She will follow-up with her primary care doctor for recheck. Continue taking her medications. Return right away for any issues. Treatment Plan: As above Disposition: Discharge Impression: 1. Left shoulder pain 2. Hypertension This note was generated with YouTab dictation software. It may contain incorrect words, spelling, and punctuation that were not noted in review of the chart prior to signing ED Disposition - Plan for ED Patient: Chief Complaint: Upper Extremity Injury Referrals: Catalina Evans NP-C [Primary Care Provider] - What to do if you have Problems For any increased pain, shortness of breath, bleeding, nausea or vomiting, chest pain, or any unexpected problems, contact your Primary Care Provider. Call [facility] ([phone]) or report to the closest Emergency Room. Call 911 if necessary. 04/08/1816 <Electronically signed by Ted Garzon MD> Date Ted Garzon MD Cosigner Signature (If Indicated): Date CC: COUNSELING CASE MANAGER-C Catalina Evans; CATALINA EVANS DISCHARGE INSTRUCTION Observed: 04/08/2018 Status: F Source: [place] 12:17 AM [facility] REPOSITORY [facility] Medical Records Department [address] [place] [address] Discharge Instruction 04/07/18 2344 MR#: [id number] Acct: [id number] Name: NIKOLAS SELLERS Rep #: [id number] : 1975 42 From: Ted Garzon MD PCP: NO Husain Status: DEP ER ED Disposition - Plan for ED Patient: Chief Complaint: Upper Extremity Injury Instructions: ED Shoulder Pain [facility] Referrals: Catalina Evans NP-C [Primary Care Provider] - What to do if you have Problems For any increased pain, shortness of breath, bleeding, nausea or vomiting, chest pain, or any unexpected problems, contact your Primary Care Provider. Call [facility] ([phone]) or report to the closest Emergency Room. Call 911 if necessary. 04/08/1816 <Electronically signed by Ted Garzon MD> Date Ted Garzon MD Cosigner Signature (If Indicated): Date CC: COUNSELING CASE MANAGER-C Catalina Lorson; CATALINA EVANS SHOULDER MIN 2 VIEWS Observed: 04/07/2018 Status: F Source: [place] 10:15 PM [facility] REPOSITORY [facility] Imaging Services [address] [place] [address] Shoulder min 2 Views MR#: [id number] Acct: [id number] Name: NIKOLAS SELLERS Rep #: [id number] : 1975 F 42 From: Kelsea Wilhelm MD PCP: NO Husain Status: REG ER Study: Shoulder min 2 Views Date of Exam: 04/07/18 Exam# [id number] Ordering Dr: Ted Garzon MD STUDY: X-RAY - LEFT SHOULDER REASON FOR EXAM: Female, 42 years old. Left-sided shoulder pain. TECHNIQUE: 4 view(s) of the shoulder. COMPARISON: None. FINDINGS: There is mild degenerative arthrosis of the glenohumeral articulation. There is degenerative arthrosis of the acromioclavicular joint without inferior osseous spur formation. There appears be a small bone fragment near the distal clavicle. This could be the result of an acute avulsion fracture. Normal acromion. There is no demonstrated inferior acromial spur. Normal humeral head and visualized proximal humerus. The soft tissue structures are unremarkable. Normal visualized pulmonary apex. RAD/Shoulder min 2 Views IMPRESSION: A questionable intra-articular avulsion fracture of the distal left clavicle. The acuity of this finding is uncertain. Electronically Signed: Kelsea Wilhelm MD at 23:29 EDT , Service support , CC: NO Evans; Ted Garzon MD [place]: Signed CONSULTATION Observed: 03/02/2018 Status: F Source: [place] 11:37 AM [facility] REPOSITORY [facility] Medical Records Department [address] [place] [address] Consultation 02/14/18 1057 MR#: [id number] Acct: [id number] Name: NIKOLAS SELLERS Rep #: [id number] : 1975 42 From: Gunjan Schneider DO PCP: Catalina Evans COUNSELING CASE MANAGER-C Status: DIS MARILY Y Location: MS2 LO344-6 Problem List (1) Fracture of lesser trochanter of femur Status: Acute Qualifiers: Encounter type: initial encounter Fracture type: closed Fracture alignment: nondisplaced Laterality: right Qualified Code(s): S72.124A - Nondisplaced fracture of lesser trochanter of right femur, initial encounter for closed fracture Reason for Consult Date of Consultation: 02/14/18 Reason for Consultation: right hip pain History of Present Illness: The patient is a 42 year old F who twisted and felt pull in her groin over 6 months ago. has seen multiple doctors, including pain magement for this, and is sick and tired of it. has not had injections into the iliopsoas. Denies numbness, tingling or other associated symptoms. able to move leg up and down,just twisting can be painful. xrays done and ortho consulted. [] Past Medical History Past Medical History (Chronic Problems): Chronic Problems Femur fracture, right (Chronic) HTN (hypertension) (Chronic) Diabetes (Chronic) Allergies No Known Allergies Allergy (Verified 02/13/18 23:32) Home Medications: Ambulatory Orders Medication Instructions Recorded Metformin HCl [Glucophage] 500 mg PO TIDCM 02/16/14 Lisinopril 20 mg PO DAILY 03/20/14 Lives: With Family Smoking Status: Current every day smoker - Cigarettes. Alcohol: None Drugs: None - *Family History Paternal History Items: Heart Disease Review of Systems Constitutional: Denies: Chills, Fever, Weight Change HEENT: Denies: Head Aches, Sinus Congestion, Sinus Drainage Cardiovascular: Denies: Chest Pain, Palpitations Respiratory: Denies: Cough, Shortness of breath at rest, Sputum production Gastrointestinal: Denies: Abdominal Pain, Nausea, Vomiting Genitourinary: Denies: Dysuria Musculoskeletal: Denies: Joint Pain, Joint Tenderness Skin: Denies: Rash, Wounds Neurological: Denies: Numbness, Tingling, Focal weakness Psychiatric: Denies: Anxiety, Depression, Homicidal Ideations, Suicidal Ideations Hematologic/ Lymphatic: Denies: Easy Bruising, Easy Bleeding - Physical Exam General: Alert - neg homans sign, no calf pain, min pain with irom/erom of hip, sgi, compts soft, arom prom ankle intact, no sensory deficits or motor deficits b/l LE, Oriented x3, Cooperative HEENT: Atraumatic, PERRLA, EOMI, Normocephalic Neck: Supple, No JVD, Negative Carotid Bruits Lungs: Clear to auscultation, Normal air movement Cardiovascular: Regular rate, No murmurs Abdomen: Bowel Sounds Present, Soft, Non Tender Extremities: No edema, Capillary Refill Less than 3 Seconds Skin: No rashes, No breakdown Musculoskeletal: No Tenderness to Palpation of Joints or Extremities - patient has neg heel strike, minimal pain with internal/external rotation of hip, pain with elevation of leg/straight leg raise at hip, Neurological: Cranial nerves II-XII grossly intact Psych/Mental Status: Normal Affect, Appropriate Vital Signs Temp Pulse Resp BP Pulse Ox 98.2 F 88 18 123/81 H 97 02/14/18 07:51 02/14/18 07:51 02/14/18 07:51 02/14/18 07:51 02/14/18 07:51 Oxygen Delivery Method Room Air Weight: 183 lb 10.321 oz Body Mass Index (BMI) 34.7 Intake and Output for Last 24 Hours Intake Total 100 / 100 Balance 100 / 100 Laboratory Tests Past 24 Hrs WBC RBC Hgb Hct MCV MCH MCHC RDW RDW Differential Plt Count MPV Immature Gran % (Auto) Neut % (Auto) Lymph % (Auto) POC Glucose POC Glucose 221 H Assessment/Plan All Active Problems Fracture of lesser trochanter of femur (Acute) Lesser trochanter fracture most likely from pull from the iliopsoas from the injury sustained 6 months ago No obvious acute pathology however because of her continued pain and will order an MRI to ensure that she does not have an occult fracture of her inotropic or of her femoral neck. Discussed with patient that some of her pain also sounds like it is coming from her back and would also recommend x-rays of her back however patient refused to get x-rays of her back today stating that she does not want to be here any longer and this wishes to get the F out. Patient also states she is seeing pain management Dr. Quiñones in the past who is an injection has been working with her back for quite some time and that has not alleviated any of her pain. Discussed other options for her including possible injection into the iliopsoas to see if that is the determinant to see if that is her pain is coming from however she is eaten lunch at this point I could do this as an outpatient basis. Discussed physical therapy and other options and patient was not very interested her very compliant with any options afforded her today in the hospital Told patient where our offices limb was located in to see us as an outpatient and we will schedule the iliopsoas injection to see if this were her pain is coming from. Was informed after I was in the OR and finalizing this note the patient left AGAINST MEDICAL ADVICE MRI essentially negative for acute pathology/ acute fracture. 03/02/18 1137 <Electronically signed by Gunjan Schneider DO> Date Gunjan Schneider DO Cosigner Signature (if applicable): Date CC: NO Evans; Gunjan Schneider DO Signed 12 LEAD ELECTROCARDIOGRAM Observed: 02/16/2018 Status: F Source: [place] 1:32 PM [facility] REPOSITORY [facility] Cardiovascular Services [address] [place] [address] 12 Lead EKG 02/14/18 0609 MR#: [id number] Acct: [id number] Name: NIKOLAS SELLERS Rep #: [id number] : 1975 42 From: Ramiro Lopez MD Attending Dr: Molly Cedeno M.D. Status: DIS MARILY Ordering Dr: Adilson Adkins MD Date: 02/14/18 [place] [facility] [place] F C Admitted: 02/14/18 Test Reason : PRE-OP Blood Pressure : / mmHG Vent. Rate : 092 BPM Atrial Rate : 092 BPM P-R Int : 128 ms QRS Dur : 084 ms QT Int : 366 ms P-R-T Axes : 034 016 024 degrees QTc Int : 452 ms Normal sinus rhythm Septal infarct , age undetermined Abnormal ECG When compared with ECG of 27-DEC-2017 08:48, No significant change was found Confirmed by JOHN GRANDE, RAMIRO ([id number]), newspaper copy editor GUILLE WILHELM ([id number]) on 02/16/2018 1:32:39 PM Referred By: DR HARDING Confirmed By:RAMIRO LOPEZ MD 02/16/18 1332 Date Ramiro Lopez MD CC: COUNSELING CASE MANAGER-C Catalina Evans; Adilson Adkins MD; Molly Cedeno M.D. Signed DISCHARGE SUMMARY Observed: 02/15/2018 Status: F Source: [place] 7:54 AM [facility] REPOSITORY [facility] Medical Records Department [address] [place] [address] Discharge Summary 02/15/18 0742 MR#: [id number] Acct: [id number] Name: NIKOLAS SELLERS Rep #: [id number] : 1975 42 From: Molly Cedeno MD PCP: NO Husain Status: DIS MARILY Y Location: [place] [address] Discharge Date and Diagnosis Date of Admission: 02/14/18 Date of Discharge: 02/14/18 - Primary Discharge Diagnosis Fracture of lesser trochanter of right femur - Secondary Discharge Diagnosis Chronic Problems Femur fracture, right (Chronic) HTN (hypertension) (Chronic) Diabetes (Chronic) Hospital Course and Treatment Dr. Schneider for orthopedic surgery Operations: None Procedures: None Summary of Care Provided: The patient is a 42 year old F admitted on account of subacute to chronic right hip pain. Xray and CT and MRI showed fracture of the lesser trochanter of the right hip. Dr. Schneider was consulted and saw the patient. Patient insisted on being allowed to go outside to smoke. We informed her that this was against hospital policy and patient essentially threw a fit. Patient subsequently eloped without the knowledge of the nursing floor staff. [] Home Medications: Medications to take at Discharge Metformin HCl [Glucophage] 500 mg PO TIDCM 02/16/14 Lisinopril [Lisinopril] 20 mg PO DAILY 03/20/14 Simvastatin [Zocor] 20 mg PO DAILY 03/20/14 Insulin Degludec [Tresiba Flextouch U-100] 34 units SQ DAILY 01/12/17 Gabapentin [Neurontin] 800 mg PO 4X/DAY 04/22/17 Primary Care Physician: Catalina Evans NP-C [Primary Care Provider] - Medical Necessity - Tobacco Use Smoking Status: Current every day smoker - Cigarettes. Meaningful Use Info Meaningful Use Diagnoses (Choose all that apply): None applicable Code Visit OBSV E AND M: 80781 Observation care discharge 02/15/18 0754 <Electronically signed by Molly Cedeno MD> Date Molly Cedeno MD Cosigner Signature (if applicable): Date CC: NO Evans; Molly Cedeno M.D.; OUT OF TOWN DOCTOR Signed BEDSIDE GLUCOSE Collected: 02/14/2018 Status: F Source: [place] 11:13 AM [facility] REPOSITORY TYPE CODE TESTS RESULT OUT OF REFERENCE UNITS RANGE LAB L501.080 70-110 mg/dL High BEDSIDE GLU 152 Result Comment: MANAGEMENT OF PATIENT CARE PER NURSING PROTOCOL Performed By: #### L501.080 #### [facility] Laboratory Point of Care [address] [place] [address] PELVIS (ROUTINE) Observed: 02/14/2018 Status: F Source: [place] 10:57 AM [facility] REPOSITORY [facility] Imaging Services [address] [place] [address] Pelvis (Routine) MR#: [id number] Acct: [id number] Name: NIKOLAS SELLERS Rep #: [id number] : 1975 F 42 From: Rogerio Patel MD PCP: NO Husain Status: ADM MARILY Study: Pelvis (Routine) Date of Exam: 02/14/18 Exam# [id number] Ordering Dr: Gunjan Schneider DO STUDY: MRI BILATERAL HIPS T PELVIS REASON FOR EXAM: Right hip pain for 6 months. TECHNIQUE: Standardized fat and water weighted pulse sequences were obtained in all 3 orthogonal planes. COMPARISON: Radiographs 02/14/[address] images 02/14/2018, 03/20/2014. FINDINGS: RIGHT HIP Normal hip joint without articular joint space narrowing. Normal right acetabulum. Normal right labrum. Normal right femoral head. There is a well-defined corticated ossification at the right lesser trochanter (T1 axial images 35, 36) without bone edema or adjacent soft tissue edema consistent with a remote injury. There ossification is visualized on CT images of the pelvis dating back to 03/30/2014. Normal right gluteus minimus, medius and iliopsoas tendons and distal insertions. There is very mild right greater trochanteric bursitis (inversion recovery coronal images 15, 16). Normal right superior and inferior pubic rami. Normal right pubic symphysis. Normal right ischial tuberosity. Normal origin of the right hamstring tendons. There is subchondral sclerosis at the right sacroiliac joint (T1 coronal images 11, 12). Normal visualized soft tissue structures of the pelvis. LEFT HIP Normal left hip joint without articular joint space narrowing. Normal left acetabulum. Normal left labrum. Normal left femoral head. Normal left femoral neck and intratrochanteric region. Normal left gluteus minimus, medius and iliopsoas tendons and distal insertions. Normal left superior and inferior pubic rami. Normal left pubic symphysis. Normal left ischial tuberosity. Normal origin of the left hamstring tendons. Normal visualized left iliac wing, sacroiliac joint, and sacral ala. Normal visualized soft tissue structures of the pelvis. 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 Very mild right greater trochanteric bursitis. Electronically Signed: Rogerio Patel MD at 14:15 EDT Tel , Service support , CC: NO Evans; Gunjan Schneider DO [place]: Signed BEDSIDE GLUCOSE Collected: 02/14/2018 Status: F Source: [place] 7:00 AM [facility] REPOSITORY TYPE CODE TESTS RESULT OUT OF REFERENCE UNITS RANGE LAB L501.080 70-110 mg/dL High BEDSIDE GLU 221 Result Comment: MANAGEMENT OF PATIENT CARE PER NURSING PROTOCOL Performed By: #### L501.080 #### [facility] Laboratory Point of Care [facility] [place] [address] BASIC METABOLIC Collected: 02/14/2018 Status: F Source: [place] PROFILE (BMP) 4:48 AM [facility] REPOSITORY TYPE CODE TESTS RESULT OUT OF RANGE REFERENCE UNITS LAB L501.0100 74-106 mg/dL High GLU 247 Result Comment: Glucose result greater than or equal to 200 mg/dL suggests DIABETES MELLITUS per A.D.A. criteria. Please note revised GLUCOSE reference range effective 2017. LAB L501.1000 7-18 mg/dL Normal BUN 7 LAB L501.1100 0.55-1.02 mg/dL Normal CREAT,SERUM 0.67 Result Comment: The validity of the calculated GFR AND GFRAA in patients over 70 years has not been determined. Clinical correlation is essential. LAB L501.1110 >60 mL/min Normal EST GFR 102 Result Comment: Non- GFR Calc LAB L501.1115 >60 mL/min Normal EST GFR - AA 123 Result Comment: GFR Calc LAB L501.1255 ml/min Normal Estimated CRCL 81.70 LAB L501.1300 10-20 RATIO Normal BUN/CRE 10.5 LAB L501.2200 8.5-10 mg/dL Low .1 CA 8.4 LAB L501.5300 136-14 mmol/L Normal 5 NA 139 LAB L501.5600 3.5-5. mmol/L Low 1 K 3.4 LAB L501.5900 98-107 mmol/L Normal CL 103 LAB L501.6100 21.0-3 mmol/L Normal 2.0 CO2 26.0 LAB L501.6200 5-15 Normal GAP 10 Performed By: #### L500.2500 #### [facility] [place], [address] CBC W/DIFF, AUTOMATED Collected: 02/14/2018 Status: F Source: [place] 4:48 AM [facility] REPOSITORY TYPE CODE TESTS RESULT OUT OF RANGE REFERENCE UNITS LAB L100.1000 4.4-11.0 K/mm3 High WBC 14.7 LAB L100.1200 4.2-5.4 M/mm3 Low RBC 4.13 LAB L100.1300 12.0-15.0 g/dl Normal HGB 12.8 LAB L100.1400 37-47 % Normal HCT 37.6 LAB L100.1500 81-99 fL Normal MCV 91.0 LAB L100.1600 27.0-32.0 pg Normal MCH 31.0 LAB L100.1700 32-36 g/gl Normal MCHC 34.0 LAB L100.1810 11.6-14.6 % Normal RDW CV 14.3 LAB L100.1820 35.1-43.9 fl High RDW SD 46.5 LAB L100.1900 150-450 K/mm3 Normal PLT 399 LAB L100.2000 6.2-12.0 fl Normal MPV 8.7 LAB L100.2100 47-70 % Normal NEUT% 50.5 LAB L100.2200 19-41 % Normal LY% 37.2 LAB L100.2300 0-10 % Normal MONO% 8.2 LAB L100.2400 0-5 % Normal EO% 2.9 LAB L100.2500 0-1 % Normal BASO% 0.4 LAB L100.2550 0.0-0.9 % Normal IM GRAN % 0.800 Result Comment: IG% - Immature Granulocytes (promyelocytes, myelocytes and metamyelocytes) > 1% indicates that a LEFT SHIFT is Present. LAB L100.2620 2.0-7.7 X10 3/uL Normal Absolute Neut 7.4 LAB L100.2720 0.83-4.51 X10 3/ul High Absolute Lymph 5.48 Performed By: #### L100.0100 #### [facility] [address] [place], [address] HEMOGLOBIN A1C Collected: 02/14/2018 Status: F Source: [place] 4:48 AM [facility] REPOSITORY TYPE CODE TESTS RESULT OUT OF RANGE REFERENCE UNITS LAB L501.9985 4.2-6.3 % High HGB A1C 11.0 Performed By: #### L501.9985 #### [facility] [address] [facility] [place], [address] TYPE AND SCREEN Collected: 02/14/2018 Status: F Source: [place] 4:48 AM [facility] REPOSITORY Order Comment: Reason for Type AND Screen/Red Cells: SURGERY Type of Surgery: FRACTURED HIP TYPE CODE TESTS RESULT OUT OF RANGE REFERENCE UNITS LAB B10.0800 A Normal BLOOD TYPE GEL POSITIVE LAB B100.4000 Normal Antibody NEGATIVE Screen Performed By: #### B101.7450 #### [facility] [address] [place], [address] HISTORY AND PHYSICAL Observed: 02/14/2018 Status: F Source: [place] EXAM 4:23 AM [facility] REPOSITORY [facility] Medical Records Department [address] [place] [id number] History and Physical 02/14/18 0243 MR#: [id number] Acct: [id number] Name: NIKOLAS SELLERS Rep #: [id number] : 1975 42 From: Chas Dickens MD PCP: NO Husain Status: ADM MARILY Y Location: [address] Problem List (1) Femur fracture, right Status: Chronic (2) HTN (hypertension) Status: Chronic (3) Diabetes Status: Chronic History of Present Illness Date of Admission: 02/14/18 Chief Complaint: right hip pain x 6 months The patient is a 42 year old F with a significant history of diabetes mellitus; hypertension; hyperlipidemia who presented because of excruciating pain of her right hip x 1 day. There are no relieving factors to her pain. Her pain is aggravated with moving her legs. Her pain is sharp in quality. The pain has been going on for 6 months but since yesterday her pain has been unbearable so she presented to the emergency department. Emergency department x-ray of the hip and pelvis showed a possible fracture of the right lesser trochanter. CT of the right lower extremity showed ununited fracture of the lesser trochanter. At emergency department patient was medicated with Dilaudid, Toradol, morphine, and Norflex. Ununited fracture of the R lesser trochanter Oxycodone and morphine as needed. Scheduled Tylenol. Bowel protocol with Senokot. Orthopedic consult Weightbearing on right leg as tolerated. Hypertension Uncontrolled admission Lisinopril continued As needed labetalol ordered. Diabetes mellitus with acute hypoglycemia and chronic peripheral neuropathy At emergency department blood glucose was not within goal Would discontinue metformin at this time to decrease risk of lactic acidosis Basal insulin and correction scale insulin ordered. Hyperlipidemia Lipitor continued DVT prophylaxis Subcutaneous Lovenox. Past Medical History Past Medical History (Chronic Problems): Chronic Problems Femur fracture, right (Chronic) HTN (hypertension) (Chronic) Diabetes (Chronic) Allergies No Known Allergies Allergy (Verified 02/13/18 23:32) Home Medications: Ambulatory Orders Medication Instructions Recorded Metformin HCl [Glucophage] 500 mg PO TIDCM 02/16/14 Lisinopril [Lisinopril] 20 mg PO DAILY 03/20/14 Lives: With Family Smoking Status: Current every day smoker - Cigarettes. Alcohol: None Drugs: None - *Family History Paternal History Items: Heart Disease Review of Systems Constitutional: Denies: Chills, Fever, Weight Change HEENT: Denies: Head Aches, Sinus Congestion, Sinus Drainage Cardiovascular: Denies: Chest Pain, Palpitations Respiratory: Denies: Cough, Shortness of breath at rest, Sputum production Gastrointestinal: Denies: Abdominal Pain, Nausea, Vomiting Genitourinary: Denies: Dysuria Musculoskeletal: Reports: Joint Tenderness - Right hip. Denies: Joint Pain Skin: Denies: Rash, Wounds Neurological: Denies: Numbness, Tingling, Focal weakness Psychiatric: Denies: Anxiety, Depression, Homicidal Ideations, Suicidal Ideations Hematologic/ Lymphatic: Denies: Easy Bruising, Easy Bleeding VTE Information - Inpt Only VTE Present on Admission: No VTE Mechan Device Prophylaxis: None VTE Pharm Prophylaxis ordered?: Yes - Physical Exam General: Alert, Oriented x3, Cooperative, - - Patient crying secondary to pain at the right hip. HEENT: Atraumatic, PERRLA, EOMI, Normocephalic Neck: Supple, No JVD, Negative Carotid Bruits Lungs: Clear to auscultation, Normal air movement Cardiovascular: Regular Rhythm, Normal S1, Normal S2, Tachycardic Abdomen: Bowel Sounds Present Extremities: Tenderness - Right hip, - - Positive straight leg test at the right hip. Skin: No rashes, No breakdown Musculoskeletal: Tenderness - R Hip Neurological: Cranial nerves II-XII grossly intact Psych/Mental Status: - - Patient crying secondary to pain at the right hip. Vital Signs Temp Pulse Resp BP Pulse Ox 97.4 F L 122 H 16 168/95 H 99 02/13/18 23:31 02/13/18 23:31 02/13/18 23:31 02/13/18 23:31 02/13/18 23:31 Oxygen Delivery Method Room Air Weight: 81.647 kg Body Mass Index (BMI) 34.0 Finger Stick Blood Glucose 310 Laboratory Tests Past 24 Hrs WBC 16.3 H RBC 4.39 Hgb 13.3 Hct 39.6 Assessment/Plan The patient is a 42 year old F with a significant history of diabetes mellitus; hypertension; hyperlipidemia who presented because of excruciating pain of her right hip . Ununited fracture of the R lesser trochanter Oxycodone and morphine as needed. Scheduled Tylenol. Bowel protocol with Senokot. Orthopedic consult Weightbearing on right leg as tolerated. Hypertension Uncontrolled admission Lisinopril continued As needed labetalol ordered. Diabetes mellitus with acute hypoglycemia and chronic peripheral neuropathy At emergency department blood glucose was not within goal Would discontinue metformin at this time to decrease risk of lactic acidosis Basal insulin and correction scale insulin ordered. Hyperlipidemia Lipitor continued DVT prophylaxis Subcutaneous Lovenox. Code Visit OBSV E AND M: [id number] Initial observation care L3 02/14/18 0423 <Electronically signed by Chas Dickens MD> Date Chas Dickens MD Cosigner Signature: Date (if applicable) CC: NO Evans; Chas Dickens MD; OUT OF TOWN DOCTOR Signed EMERGENCY DEPARTMENT Observed: 02/14/2018 Status: F Source: [place] SUMMARY 3:57 AM [facility] REPOSITORY [facility] Medical Records Department [address] [place] [address] Emergency Department Summary 02/14/18 0022 MR#: [id number] Acct: [id number] Name: NIKOLAS SELLERS Rep #: [id number] : 1975 42 From: Tay Oliveros MD PCP: NO Husain Status: ADM MARILY - ER Visit Summary Date of Service: 02/14/18 Chief Complaint: Right hip pain History of Present Illness: The patient is a 42 F presents to the emergency department with right low back pain and right hip pain. The patient had the symptoms for the past 6 months. She states in August, she was in [place]. She states that she was lifting a toilet and felt something pop in her right hip. Since then, she has had consistent burning pain in her right hip into her right side. She has also had pain in her right low back and buttock area. She denies any problems of bowel or bladder. She denies any fevers or chills. She states she has been taking anti-inflammatories with little improvement. She is scheduled to see her primary care in 6 days, but states the pain is worsened and she need to be reevaluated. Physical Examination: Afebrile, vitals unremarkable. Well- appearing female no acute distress. Head is normocephalic, atraumatic. Pupil's equal round reactive, extraocular muscles intact. Neck supple. Heart regular rate and rhythm. Lungs clear, chest nontender. Abdomen soft, nontender, nondistended. No pulsatile mass. Patient has paraspinal tenderness in the lumbar area, but no bony tenderness. Straight leg raise is negative bilaterally. 2+ symmetric lower extremity pulses. 2+ reflexes. No clonus. No weakness of dorsiflexion, plantar flexion, or extensor hallucis longus bilaterally. Test Results: [] Emergency Department Course and Treatment: The patient has a lot of pain with logroll of the right hip. Her pulses are normal. She is neurovascular intact distally. There is no erythema or edema of the hip. She was treated with IM medications with very little improvement of her pain. Plain films do demonstrate fracture of the lesser trochanter. I was initially unsure if it actually went through the base of the cervical area of the hip. IV was established. Patient was given IV analgesics and was more comfortable. She can still not stand and bear weight because of her pain. CT demonstrates nonunion of the lesser trochanter. The fracture does not extend into the hip itself. Given her persistent pain, I do for the patient is can require admission and orthopedic consult. Patient was discussed with the hospitalist will be admitted. Treatment Plan: [] Disposition: Admission Impression: 1. 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 Inability to ambulate This note was generated with YouTab dictation software. It may contain incorrect words, spelling, and punctuation that were not noted in review of the chart prior to signing ED Disposition - Plan for ED Patient: Chief Complaint: Back Referrals: Catalina Evans NP-C [Primary Care Provider] - What to do if you have Problems For any increased pain, shortness of breath, bleeding, nausea or vomiting, chest pain, or any unexpected problems, contact your Primary Care Provider. Call [facility] ([phone]) or report to the closest Emergency Room. Call 911 if necessary. 02/14/18 0357 <Electronically signed by Tay Oliveros MD> Date Tay Oliveros MD Cosigner Signature (If Indicated): Date CC: NO Evans; OUT OF TOWN DOCTOR FABIAN W/DIFF, AUTOMATED Collected: 02/14/2018 Status: F Source: [place] 1:20 AM [facility] REPOSITORY TYPE CODE TESTS RESULT OUT OF RANGE REFERENCE UNITS LAB L100.1000 4.4-11.0 K/mm3 High WBC 16.3 LAB L100.1200 4.2-5.4 M/mm3 Normal RBC 4.39 LAB L100.1300 12.0-15.0 g/dl Normal HGB 13.3 LAB L100.1400 37-47 % Normal HCT 39.6 LAB L100.1500 81-99 fL Normal MCV 90.2 LAB L100.1600 27.0-32.0 pg Normal MCH 30.3 LAB L100.1700 32-36 g/gl Normal MCHC 33.6 LAB L100.1810 11.6-14.6 % Normal RDW CV 14.4 LAB L100.1820 35.1-43.9 fl High RDW SD 47.1 LAB L100.1900 150-450 K/mm3 Normal PLT 365 LAB L100.2000 6.2-12.0 fl Normal MPV 9.2 LAB L100.2100 47-70 % Normal NEUT% 54.6 LAB L100.2200 19-41 % Normal LY% 34.7 LAB L100.2300 0-10 % Normal MONO% 7.3 LAB L100.2400 0-5 % Normal EO% 2.6 LAB L100.2500 0-1 % Normal BASO% 0.2 LAB L100.2550 0.0-0.9 % Normal IM GRAN % 0.600 Result Comment: IG% - Immature Granulocytes (promyelocytes, myelocytes and metamyelocytes) > 1% indicates that a LEFT SHIFT is Present. LAB L100.2620 2.0-7.7 X10 3/uL High Absolute Neut 8.9 LAB L100.2720 0.83-4.51 X10 3/ul High Absolute Lymph 5.66 Performed By: #### L100.0100 #### [facility] [address] [place], [place], [address] COMPREHENSIVE METABOLIC Collected: 02/14/2018 Status: F [facility] REPOSITORY TYPE CODE TESTS RESULT OUT OF RANGE REFERENCE UNITS LAB L501.0100 74-106 mg/dL High GLU 290 Result Comment: Glucose result greater than or equal to 200 mg/dL suggests DIABETES MELLITUS per A.D.A. criteria. Please note revised GLUCOSE reference range effective 2017. LAB L501.1000 7-18 mg/dL Normal BUN 8 LAB L501.1100 0.55-1.02 mg/dL Normal CREAT,SERUM 0.75 Result Comment: The validity of the calculated GFR AND GFRAA in patients over 70 years has not been determined. Clinical correlation is essential. LAB L501.1110 >60 mL/min Normal EST GFR 90 Result Comment: Non- GFR Calc LAB L501.1115 >60 mL/min Normal EST GFR - AA 109 Result Comment: GFR Calc LAB L501.1255 ml/min Normal Estimated CRCL 72.98 LAB L501.1300 10-20 RATIO Normal BUN/CRE 10.7 LAB L501.1500 6.4-8. g/dL Normal 2 T PROT 6.5 LAB L501.1800 3.2-5. g/dL Low 0 ALB 3.1 LAB L501.1950 2.2-4. g/dL Normal 2 GLOB 3.4 LAB L501.2000 0.9-2. RATIO Normal 4 A/G 0.9 LAB L501.2200 8.5-10 mg/dL Normal .1 CA 9.2 LAB L501.4100 15-37 U/L Normal AST 25 Result Comment: Moderate Hemolysis, Result may be falsely increased. LAB L501.4305 45-117 U/L Normal ALK P 94 LAB L501.4405 13-56 U/L Normal ALT 37 LAB L501.4600 0.20-1.00 mg/dL Normal T BILI 0.40 LAB L501.5300 136-145 mmol/L Low NA 135 LAB L501.5600 3.5-5.1 mmol/L Normal K 3.8 Result Comment: Moderate Hemolysis, Result may be falsely increased. LAB L501.5900 98-107 mmol/L Normal CL 102 LAB L501.6100 21.0-32.0 mmol/L Normal CO2 22.0 LAB L501.6200 5-15 Normal GAP 11 Performed By: #### L500.4050 #### [facility] [address] [place], [place], [id number] EXTREMITY LOWER Observed: 02/14/2018 Status: F Source: [place] WITHOUT CONTRA 1:04 AM [facility] REPOSITORY [facility] [place] [address] Extremity Lower without Contra MR#: [id number] Acct: [id number] Name: NIKOLAS SELLERS Rep #: [id number] : 1975 F 42 From: Kelsea Wilhelm MD PCP: NO Husain Status: REG ER Study: Extremity Lower without Contra Date of Exam: 02/14/18 Exam# [id number] Ordering Dr: Tay Oliveros MD STUDY: CT RIGHT HIP WITHOUT CONTRAST REASON FOR EXAM: Female, 42 years old. Right groin pain for 6 months after lifting injury. RADIATION DOSAGE (If Supplied By Facility): CTDIvol = ( 25.16 ) mGy, DLP = ( 634.29 ) mGycm TECHNIQUE: Transaxial CT imaging of the hip was performed. Sagittal and coronal images were reconstructed. Individualized dose optimization techniques were used for this CT. COMPARISON: Radiographs of the right hip dated February 14, 2018. FINDINGS: Normal visualized femoral diaphysis. Normal visualized skeletal muscles. There is an ununited fracture of the right-sided lesser trochanter. The fracture fragment measures approximately 11.5 mm in greatest dimension. Normal acetabulum. Normal hip joint. Normal visualized superior and inferior pubic rami and ischial tuberosities. Normal visualized urinary bladder. There is no evidence for dilated bowel. Normal visualized colon. There is no pelvic fluid. There is no pelvic mass lesion or lymphadenopathy. Normal visualized pelvic arteries. Normal abdominal wall. 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 Electronically Signed: Kelsea Wilhelm MD at 2:26 EDT , Service support , CC: NO Evans; Tay Oliveros MD [place]: Signed HIP, UNI W/ PELVIS Observed: 02/13/2018 Status: F Source: [place] 2-3 VIEWS 11:54 PM [facility] REPOSITORY [facility] Imaging Services [address] [place] [address] HIP, UNI W/ Pelvis 2-3 Views MR#: [id number] Acct: [id number] Name: NIKOLAS SELLERS Rep #: [id number] : 1975 F 42 From: Kelsea Wilhelm MD PCP: NO Husain Status: REG ER Study: HIP, UNI W/ Pelvis 2-3 Views Date of Exam: 02/14/18 Exam# [id number] Ordering Dr: Tay Oliveros MD STUDY: X-RAY - PELVIS AND RIGHT HIP REASON FOR EXAM: Female, 42 years old. Right-sided groin pain for 6 months after lifting injury. TECHNIQUE: Radiological exam, hip, unilateral, with pelvis when performed; 2 or 3 views. COMPARISON: CT of the abdomen and pelvis dated December 27, 2017. FINDINGS: There is a non-specific bowel gas pattern. There are multiple calcified phleboliths. Sacrum and iliac wings are obscured by bowel gas and stool. Normal bilateral superior and inferior pubic rami. Normal pubic symphysis. Normal bilateral ischial tuberosities. There appears to be a fracture of the lesser trochanter of the right femur. The proximal left femur is within normal limits. Normal acetabulum. Normal hip joint. RAD/HIP, UNI W/ Pelvis 2-3 Views IMPRESSION: Apparent fracture of the RIGHT lesser trochanter. Electronically Signed: Kelsea Wilhelm MD at 1:01 EDT , Service support , CC: NO Evans; Tay Oliveros MD [place]: Signed 12 LEAD ELECTROCARDIOGRAM Observed: 12/29/2017 Status: F Source: [place] 1:41 PM [facility] Cardiovascular Services [address] [place] [address] 12 Lead EKG 12/27/17 0848 MR#: [id number] Acct: [id number] Name: NIKOLAS SELLERS Rep #: [id number] : 1975 42 From: Bubba Acuña MD Attending Dr: Status: DEP ER Ordering Dr: Asia Roque Date: 12/27/17 Location: ED Sex: F C Admitted: Test Reason : Blood Pressure : / mmHG Vent. Rate : 093 BPM Atrial Rate : 093 BPM P-R Int : 122 ms QRS Dur : 082 ms QT Int : 378 ms P-R-T Axes : 059 020 039 degrees QTc Int : 469 ms Normal sinus rhythm Normal ECG Confirmed by ARIANNE GRANDE, BUBBA ([id number]), newspaper copy editor GUILLE WILHELM ([id number]) on 12/29/2017 1:41:08 PM Referred By: Asia Roque Confirmed By:BUBBA ACUÑA MD 12/29/17 1341 Date Bubba Acuña MD CC: COUNSELING CASE MANAGER-C Catalina Evans; Asia Roque; OUT OF [facility] DOCTOR Signed DISCHARGE INSTRUCTION Observed: 12/27/2017 Status: F Source: [place] 11:46 AM [facility] Medical Records Department [address] [place] [address] Discharge Instruction 12/27/17 1144 MR#: [id number] Acct: [id number] Name: NIKOLAS SELLERS Rep #: [id number] : 1975 42 From: Asia Roque PCP: NO Husain Status: REG ER ED Disposition - Plan for ED Patient: Chief Complaint: General Illness Instructions: Urinary Tract Infections in Women Prescriptions: Hydrocodone Bitart/Apap 5-325 [[place] 5MG-325MG] 1 tablet PO Q4H PRN PRN 2 Days #10 tablet PRN Reason: Pain proMETHazine tablet [Phenergan] 25 mg PO Q6H PRN PRN #10 tablet PRN Reason: Nausea Levofloxacin [Levaquin] 750 mg PO DAILY #5 tablet Referrals: Catalina Evans NP-C [Primary Care Provider] - 2 Days What to do if you have Problems For any increased pain, shortness of breath, bleeding, nausea or vomiting, chest pain, or any unexpected problems, contact your Primary Care Provider. Call [facility] ([phone]) or report to the closest Emergency Room. Call 911 if necessary. 12/27/17 1146 <Electronically signed by Asia Roque > Date Asia Roque Cosigner Signature (If Indicated): Date CC: NO Evans; OUT OF TOWN DOCTOR EMERGENCY DEPARTMENT Observed: 12/27/2017 Status: F Source: [place] SUMMARY 11:44 AM [facility] REPOSITORY [facility] Medical Records Department [address] [place] [address] Emergency Department Summary 12/27/17 0844 MR#: [id number] Acct: [id number] Name: NIKOLAS SELLERS Rep #: [id number] : 1975 42 From: Asia Roque PCP: NO Husain Status: REG ER - ER Visit Summary Date of Service: 12/27/17 Chief Complaint: [Not feeling well] History of Present Illness: The patient is[presents the emergency department with 3 days of not feeling well. She has had a rash on her bilateral knees consistent with her psoriasis she has pain in her proximal thighs pain in her paraspinal back muscles that radiates to her neck. She complains of chills and fevers nausea decreased appetite green mucousy stool high blood sugars in general malaise. She was seen here with yeast vaginitis. She states she is not feeling any better.] Physical Examination: [] Pressure 139/91, heart rate 106 other vitals within acceptable limits WN WD NAD PERRL EOMI MMM NECK supple and nontender, no masses RRR no murmur rub or gallop, no peripheral edema, symmetric radial pulses CTAB no respiratory distress ABDOMEN is soft and mild tenderness to palpation left lower quadrant normal bowel sounds, no distension, no rebound or guarding SKIN is warm and dry dry scaly erythematous rash in the bilateral anterior knees Alert and Oriented x3, CN II-XII in tact, no motor or sensory deficits, gait normal No lymphadenopathy Test Results: [] Emergency Department Course and Treatment: [Patient has a leukocytosis at 12. Blood sugar was 270. Urine does appear infected. Urine culture was sent. Patient was given Levaquin IV. She was given the same for home. She was given precautions for which to return. She did request pain medicine. She denies having any recent narcotic prescriptions. I am unable to get into worse because of computer issues. I will write her for .] Treatment Plan: [] Disposition: [Discharge] Impression: [1. Myalgias 2. UTI] This note was generated with YouTab dictation software. It may contain incorrect words, spelling, and punctuation that were not noted in review of the chart prior to signing ED Disposition - Plan for ED Patient: Chief Complaint: General Illness Referrals: Catalina Evans NP-C [Primary Care Provider] - What to do if you have Problems For any increased pain, shortness of breath, bleeding, nausea or vomiting, chest pain, or any unexpected problems, contact your Primary Care Provider. Call [facility] ([phone]) or report to the closest Emergency Room. Call 911 if necessary. 12/27/17 1144 <Electronically signed by Asia Roque > Date Asia Roque Cosigner Signature (If Indicated): Date CC: COUNSELING CASE MANAGER-C Catalina Evans; OUT OF TOWN DOCTOR URINALYSIS, COMPLETE Collected: 12/27/2017 Status: F Source: [place] 11:07 AM [facility] REPOSITORY Order Comment: How was Urine Obtained? CLEAN CATCH TYPE CODE TESTS RESULT OUT OF RANGE REFERENCE UNITS LAB L400.3000 Yellow COLOR Normal Yellow LAB L400.3050 Clear Normal CLARITY Sl. Cloudy LAB L400.3200 Normal mg/dl High GLUCOSE, UR 1000 LAB L400.3300 Negative mg/dL High BILIRUBIN URINE 1 Result Comment: COLOR OF URINE MAY AFFECT DIPSTICK RESULTS. LAB L400.3400 Negative mg/dl High KETONE UR 15 LAB L400.3465 1.002-1.030 Normal SP.GR. DIPSTX 1.025 LAB L400.3550 5.0 - 8.0 pH Normal UR 5.0 LAB L400.3600 Negative mg/dl High PROT DIPSTX 15 LAB L400.3700 Normal mg/dl Normal UROBILI Normal LAB L400.3750 Negative Normal NITRITE UR Negative LAB L400.3780 Negative /ul High OCCULT 10 BLOOD-UR LAB L400.3800 Negative /ul High LEUK ESTERASE 500 LAB L400.4050 0-5 /hpf Normal WBC >100 SEEN LAB L400.4100 0-5 /hpf Normal RBC-UA 0 SEEN LAB L400.4150 5-10 /hpf Normal SQUAM EPI 0-5 SEEN LAB L400.4300 None Seen /hpf Normal BACTERIA 2+ LAB L400.4350 <or=2+ /hpf Normal MUCUS, URINE 0 SEEN Performed By: #### L400.0001 #### [facility] [address] [place], [place], [address] Observed: 12/27/2017 Status: F Source: [place] CULTURE, URINE 11:07 AM [facility] REPOSITORY Urine Culture ORGANISM 1: Mixed Gram Positive Organisms [place] Count 1000-10,000 MIX CULTURE Mixed contaminants. Submit a new specimen if indicated. Performed By: #### M100.0650 #### [facility] [address] [place], [address] CHEST PA AND LATERAL Observed: 12/27/2017 Status: F Source: [place] 10:49 AM [facility] REPOSITORY [facility] Imaging Services [address] [place] [address] Chest PA and Lateral MR#: [id number] Acct: [id number] Name: NIKOLAS SELLERS Rep #: [id number] : 1975 F 42 From: Roland Quesada MD PCP: NO Husain Status: REG ER Study: Chest PA and Lateral Date of Exam: 12/27/17 Exam# [id number] Ordering Dr: Asia Roque STUDY: X-RAY CHEST REASON FOR EXAM: Female, 42 years old. General illness, malaise TECHNIQUE: PA and lateral views of the chest. COMPARISON: None. FINDINGS: The lungs are clear and expanded. There is no demonstrated pleural abnormality. Normal size heart. Normal mediastinum and jolly. Normal visualized pulmonary arteries. Normal visualized aortic arch and descending thoracic aorta. Normal visualized thoracic spine. Normal visualized ribs, clavicles, and shoulders. There is no demonstrated abnormality of the visualized soft tissue structures of the upper abdomen. RAD/Chest PA and Lateral IMPRESSION: Normal x-ray examination of the chest. Electronically Signed: Tim Quesada MD at 11:20 EDT , Service support , CC: NO Evans; Asia Roque Bucket Hooker: Signed CBC W/DIFF, AUTOMATED Collected: 12/27/2017 Status: F Source: [place] 8:45 AM [facility] REPOSITORY TYPE CODE TESTS RESULT OUT OF RANGE REFERENCE UNITS LAB L100.1000 4.4-11.0 K/mm3 High WBC 11.6 LAB L100.1200 4.2-5.4 M/mm3 Normal RBC 4.42 LAB L100.1300 12.0-15.0 g/dl Normal HGB 13.4 LAB L100.1400 37-47 % Normal HCT 39.6 LAB L100.1500 81-99 fL Normal MCV 89.6 LAB L100.1600 27.0-32.0 pg Normal MCH 30.3 LAB L100.1700 32-36 g/gl Normal MCHC 33.8 LAB L100.1810 11.6-14.6 % Normal RDW CV 14.0 LAB L100.1820 35.1-43.9 fl High RDW SD 45.1 LAB L100.1900 150-450 K/mm3 High PLT 469 LAB L100.2000 6.2-12.0 fl Normal MPV 8.8 LAB L100.2100 47-70 % Normal NEUT% 55.1 LAB L100.2200 19-41 % Normal LY% 31.9 LAB L100.2300 0-10 % High MONO% 10.3 LAB L100.2400 0-5 % Normal EO% 1.8 LAB L100.2500 0-1 % Normal BASO% 0.4 LAB L100.2550 0.0-0.9 % Normal IM GRAN % 0.500 Result Comment: IG% - Immature Granulocytes (promyelocytes, myelocytes and metamyelocytes) > 1% indicates that a LEFT SHIFT is Present. LAB L100.2620 2.0-7.7 X10 3/uL Normal Absolute Neut 6.4 LAB L100.2720 0.83-4.51 X10 3/ul Normal Absolute Lymph 3.71 Performed By: #### L100.0100 #### [facility] [address] [facility] [place], [place], [address] COMPREHENSIVE METABOLIC Collected: 12/27/2017 Status: F Source: [facility] 8:45 AM [facility] REPOSITORY TYPE CODE TESTS RESULT OUT OF RANGE REFERENCE UNITS LAB L501.0100 74-106 mg/dL High GLU 270 Result Comment: Glucose result greater than or equal to 200 mg/dL suggests DIABETES MELLITUS per A.D.A. criteria. Please note revised GLUCOSE reference range effective 2017. LAB L501.1000 7-18 mg/dL Normal BUN 13 LAB L501.1100 0.55-1.02 mg/dL Normal CREAT,SERUM 0.76 Result Comment: The validity of the calculated GFR AND GFRAA in patients over 70 years has not been determined. Clinical correlation is essential. LAB L501.1110 >60 mL/min Normal EST GFR 88 Result Comment: Non- GFR Calc LAB L501.1115 >60 mL/min Normal EST GFR - AA 107 Result Comment: GFR Calc LAB L501.1255 ml/min Normal Estimated CRCL 78.95 LAB L501.1300 10-20 RATIO Normal BUN/CRE 17.1 LAB L501.1500 6.4-8. g/dL Normal 2 T PROT 7.2 LAB L501.1800 3.2-5. g/dL Normal 0 ALB 3.4 LAB L501.1950 2.2-4. g/dL Normal 2 GLOB 3.8 LAB L501.2000 0.9-2. RATIO Normal 4 A/G 0.9 LAB L501.2200 8.5-10 mg/dL Normal .1 CA 9.1 LAB L501.4100 15-37 U/L Normal AST 32 LAB L501.4305 45-117 U/L Normal ALK P 105 LAB L501.4405 13-56 U/L Normal ALT 46 LAB L501.4600 0.20-1 mg/dL Normal .00 T BILI 0.40 LAB L501.5300 136-14 mmol/L Normal 5 NA 139 LAB L501.5600 3.5-5. mmol/L Normal 1 K 3.5 LAB L501.5900 98-107 mmol/L Normal CL 103 LAB L501.6100 21.0-3 mmol/L Normal 2.0 CO2 27.0 LAB L501.6200 5-15 Normal GAP 9 Performed By: #### L500.4050, L501.2450, L501.4010 #### [facility] [address] [facility] [place], [place], [id number] LIPASE Collected: 12/27/2017 Status: F Source: [place] 8:45 AM [facility] REPOSITORY TYPE CODE TESTS RESULT OUT OF RANGE REFERENCE UNITS LAB L501.2450 73-393 U/L Normal LIPASE 161 Performed By: #### L500.4050, L501.2450, L501.4010 #### [facility] [address] [facility]. [place], [place], [id number] TROPONIN-I Collected: 12/27/2017 Status: F Source: [place] 8:45 AM [facility] REPOSITORY TYPE CODE TESTS RESULT OUT OF RANGE REFERENCE UNITS LAB L501.4010 <0.045 ng/mL Normal < 0.015 TROPONIN-I Result Comment: TROPONIN-I EXPECTED VALUES <0.045 Negative 0.045 - 0.590 Consistent with Cardiac Damage > OR = 0.600 Critical Value Not every elevated troponin is indicative of SD. These values should be used with clinical judgement in examining the patient's clinical picture for diagnosis. To establish a diagnosis of SD versus myocardial injury, there must be a demonstrated rise and/or fall in the troponin values, in addition to ischemic symptoms, EKG changes, new regional wall motion abnormality, and/or angiographical evidence. PLEASE NOTE: REFERENCE RANGES EDITED 17 Performed By: #### L500.4050, L501.2450, L501.4010 #### [facility] [address] [facility] [place], [address] CPK TOTAL, CREATINE Collected: 12/27/2017 Status: F Source: [place] KINASE 8:45 AM [facility] REPOSITORY TYPE CODE TESTS RESULT OUT OF RANGE REFERENCE UNITS LAB L501.3620 26-192 U/L Normal CPK TOTAL 185 Performed By: #### L501.3620 #### [facility] [address] [facility] [place], [address] BNP,B-TYPE NATRIURETIC Collected: 12/27/2017 Status: F Source: [place] PEPTIDE 8:45 AM [facility] REPOSITORY TYPE CODE TESTS RESULT OUT OF RANGE REFERENCE UNITS LAB L503.6620 0-100 pg/mL Normal B-TYPE 10.5 BELEN PEP Performed By: #### L503.6620 #### [facility] [address] [place], [address] ABDOMEN/PELVIS WITHOUT Observed: 12/27/2017 Status: F Source: [place] CONT 8:38 AM [facility] REPOSITORY [facility] Imaging Services [address] [facility] [place] [address] Abdomen/Pelvis without Cont MR#: [id number] Acct: [id number] Name: NIKOLAS SELLERS Rep #: [id number] : 1975 F 42 From: Roland Quesada MD PCP: NO Husain Status: REG ER Study: Abdomen/Pelvis without Cont Date of Exam: 12/27/17 Exam# [id number] Ordering Dr: Asia Roque STUDY: CT ABDOMEN AND PELVIS WITHOUT CONTRAST REASON FOR EXAM: Female, 42 years old. Low pelvic pain, fever RADIATION DOSAGE (If Supplied By Facility): CTDIvol = ( 14.51 ) mGy, DLP = ( 765.92 ) mGycm TECHNIQUE: Transaxial images were obtained from the dome of the diaphragm to the symphysis pubis without oral contrast, and without intravenous contrast. Sagittal and coronal images were reconstructed. Individualized dose optimization techniques were used for this CT. COMPARISON: 10/17/2016 FINDINGS: Lung bases show interstitial edema. No organized infiltrate or effusion. The visualized portions of the heart are within normal limits. There is decreased attenuation of the liver consistent with steatosis. Normal gallbladder and extrahepatic biliary system. Normal spleen. Normal pancreas. Normal bilateral adrenal glands. Normal right kidney. Normal left kidney. Normal visualized stomach. Normal small intestine. Normal colon. The appendix is visualized and appears normal. Appendix best seen on axial image 127 Normal abdominal aorta. Normal inferior vena cava. Normal retroperitoneum. Normal urinary bladder. Normal visualized uterus. No suspicious cystic mass or free fluid. Normal abdominal wall. Normal osseous structures. CT/Abdomen/Pelvis without Cont IMPRESSION: Fatty infiltration of liver, no discrete lesion. No CT evidence of an acute inflammatory process, normal appendix visualized. No free intraperitoneal fluid, air, or suspicious adenopathy Interstitial edema in the lung bases. Electronically Signed: Tim Quesada MD at 9:19 EDT , Service support , CC: NO Evans; Asia Roque Bucket Hooker: Signed EMERGENCY DEPARTMENT Observed: 12/24/2017 Status: F Source: [place] SUMMARY 3:19 PM [facility] REPOSITORY [facility] Medical Records Department [address] [place] [address] Emergency Department Summary 12/24/17 1512 MR#: [id number] Acct: [id number] Name: NIKOLAS SELLERS Rep #: [id number] : 1975 42 From: Danny Hobbs MD PCP: NO Husain Status: REG ER - ER Visit Summary Date of Service: 12/24/17 Chief Complaint: Numerous symptoms which include vaginal discharge and pain, neuropathic pain lower extremities bilaterally, blood sugar greater than 300 History of Present Illness: The patient is a 42 F who presents with worsening bilateral neuropathic pain lower extremity, difficulty controlling blood sugar with numerous readings past 1-2 weeks of greater than 300. Last A1c level greater than 12. She also complains of vaginal discharge and itching. She complains of mild dysuria with urination. She denies fever, chills night sweats. Denies weight gain or weight loss. She denies headache. She denies chest pain, palpitations or rapid heartbeat. She denies productive cough, dyspnea or dyspnea on exertion. She denies nausea, vomiting diarrhea. She denies any skin lesion other than the the redness associated with the vaginal discharge. She is not sexually active. Denies history of STD. She denies symptoms of claudication. Physical Examination: Vital signs are remarkable for an elevated blood pressure of 128/98. BMI is 32.6. HEENT is remarkable for poor dentition. Heart is regular without murmur, gallop or rub. S1 and S2 are normal. Lungs are clear to auscultation with good movement of air bilaterally. Abdomen is soft nontender bowel sounds present normal. There is no evidence of umbilical or inguinal hernia. Patient has diminished DP PT pulse. There is absence of hair lower/distal right and left leg and toes. Patient is alert and oriented 3. Motor is 5 over 5. Sensory is intact. DTRs are symmetric with no clonus or Babinski sign. Cranial 2 through 12 are intact. Cerebellar testing is normal. Patient does have pain out of proportion to light touch consistent with neuropathic pain and describes as burning. Test Results: White count elevated 13.5 with 71 segs. BMP is marked for glucose of 306 with normal CO2 and anion gap. UA is remarkable for yeast as well as proteinuria and hematuria. Emergency Department Course and Treatment: To evaluate patient's symptoms UA was obtained. Suspect she has a yeast infection. BMP was obtained because of her reported elevated blood sugars and elevated A1c. Treatment Plan: Patient received Diflucan. She was informed of the importance that she must stop smoking immediately. She was a smoker 1-1/2-2 packs per day. She continues to smoke. She was told the importance of compliance with her diet. She was informed she needs to follow-up with her doctor for diabetic education. She was told she is on maximum dose of gabapentin and at this time I have nothing further to offer her regarding her neuropathic pain. She received Diflucan in the department for her yeast infection. Disposition: Discharged to home with family and outpatient follow-up for diabetic education. Patient was informed she continues her present lifestyle she may have premature stroke, heart disease and heart attack, renal failure requiring dialysis and loss of digits/extremities. Impression: 1. Monilial yeast infection 2. Poorly controlled type II diabetic 3. Neuropathic pain lower extremity 4. Peripheral arterial disease 5. Tobacco abuse This note was generated with You[employer] dictation software. It may contain incorrect words, spelling, and punctuation that were not noted in review of the chart prior to signing ED Disposition - Plan for ED Patient: Disposition: Home or Assisted Living Chief Complaint: Other, Pain/Inj Instructions: ED Neuropathy Peripheral, ED Hyperglycemia Diabetic, ED PVD, ED Smoking Cessation Referrals: Catalina Evans NP-C [Primary Care Provider] - 3-5 Days Additional Instructions: You must quit smoking immediately. What to do if you have Problems For any increased pain, shortness of breath, bleeding, nausea or vomiting, chest pain, or any unexpected problems, contact your Primary Care Provider. Call [facility] ([phone]) or report to the closest Emergency Room. Call 911 if necessary. 12/24/17 1519 <Electronically signed by Danny Hobbs MD> Date Danny Hobbs MD Cosigner Signature (If Indicated): Date CC: ABELARDO-Héctor Evans; OUT OF TOWN DOCTOR URINALYSIS, COMPLETE Collected: 12/24/2017 Status: F Source: [place] 1:55 PM [facility] REPOSITORY Order Comment: How was Urine Obtained? SAND DRIER TO SPECIFY TYPE CODE TESTS RESULT OUT OF RANGE REFERENCE UNITS LAB L400.3000 Yellow COLOR Normal Yellow LAB L400.3050 Clear Normal CLARITY Cloudy LAB L400.3200 Normal mg/dl High GLUCOSE, UR 1000 LAB L400.3300 Negative mg/dL Normal BILIRUBIN URINE Negative LAB L400.3400 Negative mg/dl High 15 KETONE UR LAB L400.3465 1.002-1.030 Normal SP.GR. DIPSTX 1.020 LAB L400.3550 5.0 - 8.0 pH UR Normal 5.0 LAB L400.3600 Negative mg/dl High PROT 15 DIPSTX LAB L400.3700 Normal mg/dl Normal UROBILI Normal LAB L400.3750 Negative Normal NITRITE UR Negative LAB L400.3780 Negative /ul High 10 OCCULT BLOOD-UR LAB L400.3800 Negative /ul High LEUK ESTERASE 500 LAB L400.4050 0-5 /hpf WBC Normal 5-10 SEEN LAB L400.4100 0-5 /hpf Normal RBC-UA 0-5 SEEN LAB L400.4150 5-10 /hpf SQUAM Normal EPI 0-5 SEEN LAB L400.4300 None Seen /hpf Normal BACTERIA RARE LAB L400.4350 <or=2+ /hpf 0 Normal MUCUS, URINE SEEN LAB L400.5200 None Seen /hpf 1+ Normal YEAST-URINE Performed By: #### L400.0001 #### [facility] [address] [place], [address] BEDSIDE GLUCOSE Collected: 12/24/2017 Status: F Source: [place] 1:30 PM [facility] REPOSITORY TYPE CODE TESTS RESULT OUT OF REFERENCE UNITS RANGE LAB L501.080 70-110 mg/dL High BEDSIDE GLU 310 Result Comment: MANAGEMENT OF PATIENT CARE PER NURSING PROTOCOL Performed By: #### L501.080 #### [facility] Point of Care [address] [place], [place] [address] CBC W/DIFF, AUTOMATED Collected: 12/24/2017 Status: F Source: [place] 1:30 PM [facility] REPOSITORY TYPE CODE TESTS RESULT OUT OF RANGE REFERENCE UNITS LAB L100.1000 4.4-11.0 K/mm3 High WBC 13.5 LAB L100.1200 4.2-5.4 M/mm3 Normal RBC 4.89 LAB L100.1300 12.0-15.0 g/dl Normal HGB 15.0 LAB L100.1400 37-47 % Normal HCT 43.5 LAB L100.1500 81-99 fL Normal MCV 89.0 LAB L100.1600 27.0-32.0 pg Normal MCH 30.7 LAB L100.1700 32-36 g/gl Normal MCHC 34.5 LAB L100.1810 11.6-14.6 % Normal RDW CV 13.8 LAB L100.1820 35.1-43.9 fl High RDW SD 44.3 LAB L100.1900 150-450 K/mm3 High PLT 528 LAB L100.2000 6.2-12.0 fl Normal MPV 8.8 LAB L100.2100 47-70 % High NEUT% 70.6 LAB L100.2200 19-41 % Normal LY% 21.4 LAB L100.2300 0-10 % Normal MONO% 6.1 LAB L100.2400 0-5 % Normal EO% 0.9 LAB L100.2500 0-1 % Normal BASO% 0.5 LAB L100.2550 0.0-0.9 % Normal IM GRAN % 0.500 Result Comment: IG% - Immature Granulocytes (promyelocytes, myelocytes and metamyelocytes) > 1% indicates that a LEFT SHIFT is Present. LAB L100.2620 2.0-7.7 X10 3/uL High Absolute Neut 9.5 LAB L100.2720 0.83-4.51 X10 3/ul Normal Absolute Lymph 2.90 Performed By: #### L100.0100 #### [facility] [address] [place], [place] [address]cin[address] [place], [place], [address] BASIC METABOLIC Collected: 12/24/2017 Status: F Source: [place] PROFILE (BMP) 1:30 PM [facility] REPOSITORY TYPE CODE TESTS RESULT OUT OF RANGE REFERENCE UNITS LAB L501.0100 74-106 mg/dL High GLU 306 Result Comment: Glucose result greater than or equal to 200 mg/dL suggests DIABETES MELLITUS per A.D.A. criteria. Please note revised GLUCOSE reference range effective 2017. LAB L501.1000 7-18 mg/dL Normal BUN 13 LAB L501.1100 0.55-1.02 mg/dL Normal CREAT,SERUM 0.88 Result Comment: The validity of the calculated GFR AND GFRAA in patients over 70 years has not been determined. Clinical correlation is essential. LAB L501.1110 >60 mL/min Normal EST GFR 75 Result Comment: Non- GFR Calc LAB L501.1115 >60 mL/min Normal EST GFR - AA 90 Result Comment: GFR Calc LAB L501.1255 ml/min Normal Estimated CRCL 68.19 LAB L501.1300 10-20 RATIO Normal BUN/CRE 14.8 LAB L501.2200 8.5-10 mg/dL Normal .1 CA 9.2 LAB L501.5300 136-14 mmol/L Normal 5 NA 138 LAB L501.5600 3.5-5. mmol/L Normal 1 K 4.2 LAB L501.5900 98-107 mmol/L Normal CL 100 LAB L501.6100 21.0-3 mmol/L Normal 2.0 CO2 26.0 LAB L501.6200 5-15 Normal GAP 12 Performed By: #### L500.2500 #### [facility] [facility] [place], [address] TOXSC Collected: 10/10/2017 Status: F Source: [facility] 11:25 AM [facility] REPOSITORY TYPE CODE TESTS RESULT OUT OF REFERENCE UNITS RANGE LAB UTCA(LOINC ) U TCA (AO) Negative LAB AOUBAR(MICHAEL NC) U Ally (AO) Negative LAB AOUMETH(LO INC) U Methadone (AO) Negative LAB AOUBNZ(MICHAEL NC) U Ryan (AO) Negative LAB AOUCAN(MICHAEL NC) U Cannab (AO) Negative LAB [id number](LOINC) Urine Opiates (AO) Negative LAB AOUAMP(MICHAEL NC) U Ampheta (AO) Negative LAB AOUCOC(MICHAEL NC) U Cocaine (AO) Negative LAB AOUPCP(MICHAEL NC) U PCP (AO) Negative LAB CD:[id number] 03(LOINC) QC TOXSC Valid Performed By: #### TOXSC #### [id number] [place], [place] [address] DISCHARGE INSTRUCTION Observed: 09/18/2017 Status: F Source: [place] 7:46 PM [facility] REPOSITORY [facility] Medical Records Department [address] [place] [address] Discharge Instruction 09/18/171941 MR#: [id number] Acct: [id number] Name: NIKOLAS SELLERS Rep #: [id number] : 1975 42 From: Don Moser MD PCP: NO Husain Status: REG ER ED Disposition - Plan for ED Patient: Chief Complaint: Other, Pain/Inj Instructions: ED Contusion Nasal, ED Head Injury Closed Referrals: Catalina Evans NP-C [Primary Care Provider] - What to do if you have Problems For any increased pain, shortness of breath, bleeding, nausea or vomiting, chest pain, or any unexpected problems, contact your Primary Care Provider. Call [facility] ([phone]) or report to the closest Emergency Room. Call 911 if necessary. 09/18/171945 <Electronically signed by Don Moser MD> Date Don Moser MD Cosigner Signature (If Indicated): Date CC: NO Evans; OUT OF TOWN DOCTOR EMERGENCY DEPARTMENT Observed: 09/18/2017 Status: F Source: [place] SUMMARY 7:42 PM [facility] REPOSITORY [facility] Medical Records Department [address] [place] [address] Emergency Department Summary 09/18/171939 MR#: [id number] Acct: [id number] Name: NIKOLAS SELLERS Rep #: [id number] : 1975 42 From: Don Moser MD PCP: NO Husain Status: REG ER - ER Visit Summary Date of Service: 09/18/17 Chief Complaint: Fall History of Present Illness: The patient is a 42 F who had a fall 3 days ago. She had been sleeping. She was woken up and stood up quickly and states she really was not completely awake and she felt lightheaded and fell forward onto her face. She currently complains of a headache and pain under nose. She also complains of right hip pain radiating down her leg. No back pain. Physical Examination: Afebrile vitals are stable Patient does have some periorbital ecchymosis and bruising across the nasal bridge as well as soft tissue swelling no epistaxis no midface instability GCS of 15 with no focal or lateralizing neurological deficits Heart regular rate and rhythm Lungs are clear Abdomen soft Easily palpable right dorsalis pedis pulse with brisk capillary refill normal sensation really no reproducible pain with range of motion of the hip she has a negative straight leg raise Test Results: Right hip x-ray and nasal bone x-rays were obtained based off of nursing protocol. Right hip x-ray is normal. Nasal bone x-ray shows a minimally displaced nasal fracture. CT of the head and facial bones is obtained. CT of the facial bones shows well-corticated lucencies which are stable from 2006 examination in the nasal bones no acute fracture. CT of the head shows nothing acute. Emergency Department Course and Treatment: Nasal bone x-rays have been obtained off nursing protocol but given her periorbital ecchymosis and for more detailed results I did obtain a CT of the facial bones with actually shows that the nasal bone fracture is old. The patient does report an old nasal fracture. She was advised on supportive care. All questions answered bedside. Patient discharged. Treatment Plan: [] Disposition: Discharge Impression: Lumbar radiculopathy Closed head injury Facial contusion This note was generated with [email or web address] software. It may contain incorrect words, spelling, and punctuation that were not noted in review of the chart prior to signing ED Disposition - Plan for ED Patient: Chief Complaint: Other, Pain/Inj Referrals: Catalina Evans NP-C [Primary Care Provider] - What to do if you have Problems For any increased pain, shortness of breath, bleeding, nausea or vomiting, chest pain, or any unexpected problems, contact your Primary Care Provider. Call [facility] ([phone]) or report to the closest Emergency Room. Call 911 if necessary. 09/18/171941 <Electronically signed by Don Moser MD> Date Don Moser MD Cosigner Signature (If Indicated): Date CC: NO Evans; OUT OF TOWN DOCTOR SINUS/FACIAL BONE Observed: 09/18/2017 Status: F Source: [place] 6:05 PM [facility] REPOSITORY [facility] Imaging Services [address] [place] [address] Sinus/Facial Bone MR#: [id number] Acct: [id number] Name: NIKOLAS SELLERS Rep #: [id number] : 1975 F 42 From: Aamir Joseph MD PCP: NO Husain Status: PRE ER Study: Sinus/Facial Bone Date of Exam: 09/18/17 Exam# [id number] Ordering Dr: Don Moser MD STUDY: CT FACIAL BONES WITHOUT CONTRAST REASON FOR EXAM: Female, 42 years old. Trauma RADIATION DOSAGE (If Supplied By Facility): CTDIvol = ( 29.38 ) mGy, DLP = ( 562.15 ) mGycm TECHNIQUE: The patient was scanned in a multi detector CT scanner. Sagittal and coronal images were reconstructed. Individualized dose optimization techniques were used for this CT. COMPARISON: Brain CT dated 10/06/2006 FINDINGS: There are well-corticated lucencies in the nasal bones (image 41 series 6) which are stable when compared with the brain CT dated 10/06/2006 (image 1 series 2 on that study). Therefore, these are not acute in nature. There is no acute facial fracture. The paranasal sinuses are clear. There is mild soft tissue swelling overlying the nose. The visualized intracranial structures are within normal limits. CT/Sinus/Facial Bone IMPRESSION: No acute facial fracture. Clear sinuses. Well-corticated lucencies in the nasal bone which are stable when compared with the brain CT dated 10/06/2006. Therefore, these are not acute in nature. Mild soft tissue swelling overlying the nose. Electronically Signed: Aamir Joseph, at 19:00 EDT Tel , Service support , CC: NO Evans; Don Moser MD Bucket Hooker: Signed BRAIN/HEAD WITHOUT Observed: 09/18/2017 Status: F Source: [place] CONTRAST 6:05 PM [facility] REPOSITORY [facility] Imaging Services [address] [place] [address] Brain/Head without Contrast MR#: [id number] Acct: [id number] Name: NIKOLAS SELLERS Rep #: [id number] : 1975 F 42 From: Aamir Joseph MD PCP: NO Husain Status: REG ER Study: Brain/Head without Contrast Date of Exam: 09/18/17 Exam# [id number] Ordering Dr: Don Moser MD STUDY: CT BRAIN WITHOUT CONTRAST REASON FOR EXAM: Female, 42 years old. Trauma RADIATION DOSAGE (If Supplied By Facility): CTDIvol = ( 44.99 ) mGy, DLP = ( 762.36 ) mGycm TECHNIQUE: Transaxial CT imaging of the brain was performed without administration of intravenous contrast material. Individualized dose optimization techniques were used for this CT. COMPARISON: 10/06/2006 FINDINGS: There is no acute bleed or infarct. There are normal white matter tracts. The ventricles are normal in configuration. There is no hydrocephalus. The visualized paranasal sinuses are clear. The mastoid air cells are well aerated. There is no skull fracture. CT/Brain/Head without Contrast IMPRESSION: No acute intracranial abnormality. Electronically Signed: Aamir Opal, at 19:13 EDT Tel , Service support , CC: NO Evans; Don Moser MD [place]er: Signed NASAL BONES MIN 3 Observed: 09/18/2017 Status: F Source: [place] VIEWS 5:25 PM [facility] REPOSITORY [facility] Imaging Services [address] [place] [address] Nasal Bones min 3 Views MR#: [id number] Acct: [id number] Name: NIKOLAS SELLERS Rep #: [id number] : 1975 F 42 From: Aamir Joseph MD PCP: NO Husain Status: PRE ER Study: Nasal Bones min 3 Views Date of Exam: 09/18/17 Exam# [id number] Ordering Dr: Don Moser MD STUDY: X-RAY - NASAL BONES REASON FOR EXAM: Female, 42 years old. Fall TECHNIQUE: History view(s) of the nasal bones. COMPARISON: None. FINDINGS: There is a minimally displaced fracture of the distal aspect of the nasal bone. The paranasal sinuses are clear. There are no radiodense foreign bodies. RAD/Nasal Bones min 3 Views IMPRESSION: Minimally displaced fracture of the distal nasal bone. Electronically Signed: Aamir Joseph, at 18:07 EDT Tel , Service support , CC: NO Moser MD Bucket Hooker: Signed HIP 2-3 VIEWS WITH Observed: 09/18/2017 Status: F Source: [place] PELVIS 5:25 PM [facility] REPOSITORY [facility] Imaging Services [address] [place] [address] Hip 2-3 Views with Pelvis MR#: [id number] Acct: [id number] Name: NIKOLAS SELLERS Rep #: [id number] : 1975 F 42 From: Aamir Joseph MD PCP: NO Husain Status: PRE ER Study: Hip 2-3 Views with Pelvis Date of Exam: 09/18/17 Exam# [id number] Ordering Dr: Don Moser MD STUDY: X-RAY - PELVIS AND RIGHT HIP REASON FOR EXAM: Female, 42 years old. Trauma TECHNIQUE: Radiological exam, hip, unilateral, with pelvis when performed; 2 or 3 views. COMPARISON: None. FINDINGS: There is a non-specific bowel gas pattern. Normal visualized soft tissue structures. Normal bilateral iliac wings, sacroiliac joints and visualized sacrum. Normal bilateral superior and inferior pubic rami. Normal pubic symphysis. Normal bilateral ischial tuberosities. Normal visualized femoral head. Normal acetabulum. Normal hip joint. RAD/Hip 2-3 Views with Pelvis IMPRESSION: Normal x-ray examination of the pelvis and hip. Electronically Signed: Aamir Joseph, at 18:13 EDT Tel , Service support , CC: NO Moser MD Bucket Hooker: Signed LIPID Collected: 09/14/2017 Status: F Source: [place] 8:27 AM [facility] REPOSITORY TYPE CODE TESTS RESULT OUT OF REFERENCE UNITS RANGE LAB CHOL(LOINC 131-200 mg/dL ) Cholesterol 197 Result Comment: Cholesterol Reference Interval: Less than 200 Desirable 200-239 Borderline high risk 240 and above High risk LAB TRIG(LOINC) 40-150 mg/dL Triglycerides High 562 Result Comment: Triglyceride Reference Interval: Less than 150 Normal 150-199 Borderline high risk 200-499 High risk 500 or higher Very high risk LAB HD(LOINC) 35-90 mg/dL HDL Cholesterol 35 Result Comment: HDL Reference Interval: Less than 40 Low - high risk 60 or above Optimal/lowers risk LAB LDL(LOINC) 0-130 mg/dL LDL Cholesterol Not Valid Result Comment: Triglyceride >400 invalidates the calculated LDL. Triglyceride >400 invalidates the calculated LDL. Triglyceride >400 invalidates the calculated LDL. Triglyceride >400 invali dates the calculated LDL. LDL is a calculated result and requires a 12-hr fast. LDL Reference Interval: Less than 100 Optimal 100-129 Near or above optimal 130-159 Borderline high risk 160-189 High risk 190 and above Very high risk Performed By: #### LIPID, CMP, GFR #### [address] [address] CMP Collected: 09/14/2017 Status: F Source: [facility] 8:27 AM [facility] TYPE CODE TESTS RESULT OUT OF RANGE REFERENCE UNITS LAB 1547-9 70-105 mg/dL GLUCOSE Abnormal 403 Alert LAB NA(LOINC) 136-146 mEq/L Low Sodium Level 135 LAB K(LOINC) 3.5-5.1 mEq/L Potassium Level 4.7 LAB CL(LOINC) 98-107 mEq/L Chloride 99 LAB CO2(LOINC) 22-29 mEq/L CO2 24 LAB EBAL(LOINC mEq/L ) Electrolyte Balance 12.0 LAB BUN(LOINC) 7.0-18.0 mg/dL BUN 14.5 LAB CRE(LOINC) 0.6-1.2 mg/dL Creatinine Lvl (s) 0.9 LAB BC(LOINC) 7-27 ratio BUN/Creatinine 16 Ratio LAB CA(LOINC) 8.4-10.2 mg/dL High Calcium Lvl 10.3 LAB PROT(LOINC 6.0-8.3 G/dL ) Total Protein 6.7 LAB ALB(LOINC) 3.5-5.0 G/dL Albumin Level 3.9 LAB GLB(LOINC) G/dL Globulin 2.8 LAB AG(LOINC) 1.1-2.5 ratio A/G Ratio 1.4 LAB BILT(LOINC 0.2-1.0 mg/dL ) Bili Total 0.2 LAB AP(LOINC) 40-135 IU/L Alk Phos 102 LAB AST(LOINC) 10-40 IU/L AST/SGOT 23 LAB ALT(LOINC) 10-35 IU/L ALT/SGPT 28 Performed By: #### LIPID, CMP, GFR #### [address] [address] .GFR Collected: 09/14/2017 Status: F Source: [facility] 8:27 AM [facility] REPOS[facility] TYPE CODE TESTS RESULT OUT OF REFERENCE UNITS RANGE LAB GFRAA(LOINC ml/min/1.73 ) sqm GFR 80 [place] Result Comment: GFR Population mean for , Non- Americans Ages 20-29 = 116 mL/min/1.73 sq.m. Ages 30-39 = 107 mL/min/1.73 sq.m. Ages 40-49 = 99 mL/min/1.73 sq.m. Ages 50-59 = 93 mL/min/1.73 sq.m. Ages 60-69 = 85 mL/min/1.73 sq.m. Ages 70+ = 75 mL/min/1.73 sq.m. Chronic Kidney Disease: Less than 60 mL/min/1.73 square meters End Stage Renal Disease: Less than 15 mL/min/1.73 square meters LAB GFRNO(LOINC) ml/min/1.73sqm GFR Non- >60 Result Comment: GFR Population mean for , Non- Americans Ages 20-29 = 116 mL/min/1.73 sq.m. Ages 30-39 = 107 mL/min/1.73 sq.m. Ages 40-49 = 99 mL/min/1.73 sq.m. Ages 50-59 = 93 mL/min/1.73 sq.m. Ages 60-69 = 85 mL/min/1.73 sq.m. Ages 70+ = 75 mL/min/1.73 sq.m. Chronic Kidney Disease: Less than 60 mL/min/1.73 square meters End Stage Renal Disease: Less than 15 mL/min/1.73 square meters Performed By: #### LIPID, CMP, GFR #### [id number] [place], [place] [address] ITZ Observed: 07/13/2017 Status: COMPLETED Source: [place] 12:00 AM [facility] REPOSITORY Telephone (INTMWS) NIKOLAS SELLERS ([id number]) 1975 F Date Time Provider Department 07/13/17 YVES MALDONADO INTMWS During your visit today, we recorded the following information about you: Marlyn Xie Psr 07/13/2017 11:11 AM Signed Called patient to try and get her set up with an appointment to see Dr Maldonado. Took out the one number because it is no longer a valid number to reach her at. The other number does not have a voicemail at all. Yeniferverona Rojas Psr 07/19/2017 4:54 PM Signed Called patient and she is on vacation october in [place]. Allergies As of Date: 07/13/2017 Noted Allergy Reaction HYDROCHLOROTHIAZIDE 01/25/2013 2 - Rash Comments: photodermatitis PRAVASTATIN 03/26/2012 14 - Other: See Comments Comments: muscle pain Date Reviewed: 12/10/2016 Reviewed by: Janki Nix LPN - Fully Assessed Reason for Visit: GAP Appointment [Other] Prescriptions as of 07/13/2017 Sig: PREGABALIN 75 MG CAPSULE Take 1 capsule by mouth twice* DULOXETINE 30 MG CAPSULE,CHELSEA* Take 1 capsule by mouth every* DULOXETINE 60 MG CAPSULE,CHELSEA* Take 1 capsule by mouth every* METOPROLOL TARTRATE 50 MG TAB* Take 0.5 tablets by mouth twi* NIFEDIPINE ER 30 MG TABLET,EX* Take 1 tablet by mouth once d* PEN NEEDLE, DIABETIC 31 GAUGE* Use once daily as directed wi* NAPROXEN 500 MG TABLET Take 1 tablet by mouth twice * TRESIBA FLEXTOUCH U-100 100 U* Inject 10 Units subcutaneousl* GABAPENTIN 300 MG CAPSULE Take 2 capsules by mouth alva* METFORMIN ER 500 MG TABLET,EX* Take 1-2 tablets by mouth twi* RANITIDINE 150 MG TABLET TAKE 1 TABLET TWICE DAILY LISINOPRIL 20 MG TABLET TAKE 1 TABLET DAILY BACLOFEN 10 MG TABLET Take 1 tablet by mouth twice * ROPINIROLE 2 MG TABLET Take 1 tablet by mouth daily * ATORVASTATIN 40 MG TABLET Take 1 tablet by mouth once d* BLOOD SUGAR DIAGNOSTIC STRIPS Use as instructed three times* BLOOD-GLUCOSE METER KIT Use once daily as directed. * BLOOD-GLUCOSE METER KIT Freestyle LITE Meter Kit - U* LANCETS Test blood sugar(s) one times* Problem List As Of Date 07/13/2017 Noted Resolved BENIGN HYPERTENSION [I10] INVALID FOR* More... HYPERLIPIDEMIA NEC/NOS [E78.5] INVALID FOR* Psoriasis [L40.8] INVALID FOR* Pain in limb [M79.609] INVALID FOR*09/15/2015 CALCANEAL SPUR [M77.30] INVALID FOR* Tendonitis [M77.9] INVALID FOR*09/15/2015 Diabetes mellitus type 2, controlled, without c*INVALID FOR* More... 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 Recurrent major depression in partial remission*INVALID FOR* More... RLS (restless legs syndrome) [G25.81] INVALID FOR* Encounter Status:Closed by MARLYN GARCIA on 07/13/17 ALLERGIES ALLERGIES DATE TYPE / NAME / CODE REACTION SEVERITY SOURCE CODE 06/06/2018 Drug No Known Unknown [place] [id number] [id number][facility] Repository 01/25/2013 DRUG HYDROCHLOROTHIAZIDE RASH [address] [id number]([facility] Repository 03/26/2012 DRUG PRAVASTATIN OTHER: SEE C [address] [id number]([facility]) Repository ENCOUNTERS ENCOUNTERS ADMIT/DISCHARGE ACCOUNT NUMBER ADMITTING ENCOUNTER LOCATION SOURCE CLASS 06/12/2018 [id number] Ambulatory [facility] ding:CT Repository 06/06/2018/06/06/19 [id number] Ambulatory BMSBuilding: [place] 19 [facility] Repository 06/02/2018/06/02/20 [id number] Emergency [address] ding:ED Repository 05/20/2018/05/20/20 [id number] Emergency [address] ding:ED Repository 05/12/2018 [id number] Ambulatory [facility] ding:LAB Repository 05/11/2018 [id number] Ambulatory [facility] ding:LABSPEC Repository 04/18/2018/04/19/20 [id number] Ambulatory [address] [place] Repository 04/07/2018/04/08/20 [id number] Emergency [address] ding:ED Repository 02/14/2018/02/15/20 [id number] [place], Ambulatory [address] ding:KL5[place]ke Repository : LE834Fic: 1 02/14/2018 [id number] [place], Ambulatory BMSBuilding: [place] Chas BMS.[facility] Repository 02/14/2018 [id number] [place], Ambulatory BMSBuilding: [place] Chas BMS.[facility] Repository 02/14/2018 [id number] Ambulatory BMSBuilding: [place] [facility] Repository 02/14/2018/02/15/20 [id number] Ambulatory BMSBuilding: [place] 18 BMS.CF.[facility] Repository 12/27/2017/12/28/19 [id number] Emergency [address] ding:ED Repository 12/24/2017/12/25/19 [id number] Emergency [address] ding:ED Repository 10/10/2017/10/15/19 [id number] Ambulatory [address] ding:[facility] Repository 09/18/2017/09/19/19 [id number] Emergency [address] ding:ED Repository 09/14/2017/09/19/19 [id number] Ambulatory [address] ding:[facility] Repository PAYERS PAYERS ENCOUNTER GUARANTOR PAYER SUBSCRIBER SOURCE 06/12/2018 NIKOALS S Primary NIKOLAS S [place] [id number] [facility] Number: [id number], [place] [id number] Repository [address]Ssx: 330) Date:2018-06-06 O [phone] () [phone]: [place] [address]DL: 06/12/2018 Secondary NOT GIVENUNK [place] Insurance:SELF PAY [facility] Number: Effective Repository Date:2018-06-06 06/06/2018 NIKOLAS S Primary NIKOLAS S [place] [id number] Insurance:[facility] Number: [id number], [place] [id number] Repository [address]Vvy: (330) Date:2018-06-04 O [phone] (HP) [phone]: [place] [address]FS: 06/06/2018 Secondary NOT GIVENUNK [place] Insurance:SELF PAY [facility] Number: Effective Repository Date:2018-06-06 06/02/2018 NIKOLAS S Primary NIKOLAS S [place] [id number] Insurance:CARESOURCEP PRINGLEDOB: [facility] Number: [id number], [place] [id number] Repository [address]Www: (330) Date:2018-06-02P O [phone] () [phone]: [place] [address]RD: 06/02/2018 Secondary NOT GIVENUNK [place] Insurance:SELF PAY [facility] Number: Effective Repository Date:2018-06-02 05/20/2018 NIKOLAS S Primary NIKOLAS S [place] [id number] Insurance:CARESOURCEP PRINGLEDOB: [facility] Number: [id number], [place] [id number] Repository [address]Vem: (330) Date:2018-05-20P O [phone] () [phone]: [place] [address]SE: 05/20/2018 Secondary NOT GIVENUNK [place] Insurance:SELF PAY [facility] Number: Effective Repository Date:2018-05-20 05/12/2018 NIKOLAS S Primary NIKOLAS S [place] [id number] Insurance:CARESOURCEP PRINGLEDOB: [facility] Number: [id number], [place] [id number] Repository [address]Kit: (330) Date:2018-05-12P O [phone] (HP) [phone]: [place] [address]ZD: 05/12/2018 Secondary NOT GIVENUNK [place] Insurance:SELF PAY [facility] Number: Effective Repository Date:2018-05-12 05/11/2018 NIKOLAS Delaney Primary NIKOLAS Maciel [id number] Insurance:CARESOURCEP PRINGLEDOB: [facility] Number: [id number], [place] [id number] Repository [address]Gla: (330) Date:2018-05-11P O [phone] () [phone]: [place] [address]PH: 05/11/2018 Secondary NOT GIVENUNK [place] Insurance:SELF PAY [facility] Number: Effective Repository Date:2018-05-11 04/07/2018 NIKOLAS S Primary NIKOLAS Maciel [id number] Insurance:CARESOURCEP PRINGLEDOB: [facility] Number: [id number], [place] [id number] Repository [address]Ave: (330) Date:2018-04-07P O [phone] () [phone]: [place] [address]BW: 04/07/2018 Secondary NOT GIVENUNK [place] Insurance:SELF PAY [facility] Number: Effective Repository Date:2018-04-07 02/14/2018 NIKOLAS S Primary NIKOLAS S [place] [id number] Insurance:CARESOURCEP PRINGLEDOB: [facility] Number: [id number], [place] [id number] Repository [address]Tiv: (330) Date:2018-02-13P O [phone] () [phone]: [place] [address]YU: 02/14/2018 Secondary NOT GIVENUNK [place] Insurance:SELF PAY [facility] Number: Effective Repository Date:2018-02-13 02/14/2018 Nikolas S Primary Nikolas Delaney [place] [id number] Insurance:CARESOURCEP PringleDOB: [facility] Number: [id number], [place] [id number] Repository [address]Bjz: (330) Date:2018-02-13 O [phone] () [phone]: [place] [address]RB: 02/14/2018 Secondary NOT GIVENUNK [place] Insurance:SELF PAY [facility] Number: Effective Repository Date:2018-02-14 02/14/2018 Nikolas S Primary Nikolas S [place] [id number] Insurance:CARESOURCEP PringleDOB: [facility] Number: [id number], [place] [id number] Repository [address]Ydp: (330) Date:2018-02-13 O [phone] () [phone]: [place] [address]OK: 02/14/2018 Secondary NOT GIVENUNK [place] Insurance:SELF PAY [facility] Number: Effective Repository Date:2018-02-14 02/14/2018 NIKOLAS S Primary NIKOLAS S [place] [id number] Insurance:CARESOURCEP PRINGLEDOB: [facility] Number: [id number], [place] [id number] Repository [address]Bqn: (330) Date:2018-02-13 O [phone] () [phone]: [place] [address]NK: 02/14/2018 Secondary NOT GIVENUNK [place] Insurance:SELF PAY [facility] Number: Effective Repository Date:2018-02-14 02/14/2018 NIKOLAS S Primary NIKOLAS S [place] [id number] Insurance:CARESOURCEP PRINGLEDOB: [facility] Number: [id number], [place] [id number] Repository [address]Gnn: (330) Date:2018-02-13 O [phone] () [phone]: [place] [address]XB: 02/14/2018 Secondary NOT GIVENUNK [place] Insurance:SELF PAY [facility] Number: Effective Repository Date:2018-02-14 12/27/2017 Nikolas S Primary Nikolas S [place] [id number] Insurance:CARESOURCEP PringleDOB: [facility] Number: [id number], [place] [id number] Repository [address]Ete: (330) Date:2017-12-27P O [phone] () [phone]: [place] [address]QZ: 12/27/2017 Secondary NOT GIVENUNK [place] Insurance:SELF PAY [facility] Number: Effective Repository Date:2017-12-27 12/24/2017 Nikolas S Primary Nikolas S [place] [id number] Insurance:CARESOURCEP PringleDOB: [facility] Number: [id number], [place] [id number] Repository [address]Acv: (330) Date:2017-12-24P O [phone] () [phone]: [place] [address]JV: 12/24/2017 Secondary NOT GIVENUNK [place] Insurance:SELF PAY [facility] Number: Effective Repository Date:2017-12-24 10/10/2017 NIKOLAS S Primary NIKOLAS S [facility] PRINGLEDOB: Insurance:CARESOURCE PRINGLEDOB: [facility] [id number] MEDICAIDPolicy [id number] [place] [address] Number: 9 [place], [place] [id number] [place], [place] [address]Kam: (330) Date:2017-10-10 [phone]: () [id number] [phone] Name:XPO Box ()Tel: 000) [place], [place] [phone] (WP) [address]ZY: 09/18/2017 Nikolas S Primary Nikolas S [place] [id number] Insurance:CARESOURCEP PringleDOB: [facility] Number: [id number], [place] [id number] Repository [address]Xwx: (330) Date:2017-09-18 O [phone] () [phone]: Claims [facility] [place] [address]MD: 09/18/2017 Secondary NOT GIVENUNK [place] Insurance:SELF PAY [facility] Number: Effective Repository Date:2017-09-18 09/14/2017 NIKOLAS S Primary NIKOLAS S [facility] PRINGLEDOB: Insurance:CARESOURCE PRINGLEDOB: [facility] [id number] MEDICAIDPolicy [id number] Number: [address] [place], [place] [id number] [place], [place] [address]Mxt: (330) Date:2017-09-14 [address]56[address]Yqe: () [id number] [phone] Name:XPO Dorothy ()Tel: 000 [address], [place] [address] (WP) [address]DT:
== END 2018-05-20 10:41 | disposition home or self-care (01) ==
PROVIDERS: Emergency Provider Emergency Medicine; Family Provider Nurse Practitioner Family; PCP Nurse Practitioner Family
DX: M54.31 Sciatica, right side (principal); E11.9 Type 2 diabetes mellitus without complications; I10 Essential (primary) hypertension; Z72.0 Tobacco use; Z79.4 Long term (current) use of insulin; Z79.899 Other long term (current) drug therapy
CPT/HCPCS: 96372; 99283

== ENCOUNTER 2018-06-02 17:26 | Emergency (ER) | payer MEDICAID, SELFPAY ==
[2018-06-02 17:27] VITALS: PULSE 94; RESP 18; TEMP 37.1; O2SAT 98; BMI 36.4
--- NOTE | 2018-06-02 17:42 | ED.VISSUMM ---
- ER Visit Summary Date of Service: 06/02/18 Chief Complaint: Pain right groin region History of Present Illness: The patient is a 42 F who complains of pain right groin region, medial inguinal area, for the past couple of weeks. She was seen May 20 and diagnosed with back pain with sciatica. She denies fever, chills or night sweats. She denies nausea, vomiting or diarrhea. She denies dysuria, frequency, urgency or hematuria. She denies vaginal discharge, vaginal bleeding or dyspareunia. She denies history of hernia. states he has had bilateral hernia and if she requires a surgeon request Dr. Ayala who repaired his hernia. There is no history of trauma. She denies discoloration of the skin or any lesions. She denies flank pain or back pain presently. Physical Examination: Vital signs noted. Blood pressure pending at time of this report. There is pain to palpation medial third of the right inguinal area. Having patient Valsalva and cough results in bulge and significant discomfort. There is no obvious palpable defect. There is no inguinal lymphadenopathy. Femoral pulses palpable. There is no rash or skin lesions noted. There is no CVA tenderness noted. There is no suprapubic discomfort. Test Results: None were obtained Emergency Department Course and Treatment: IV was established and she was treated with IV analgesics. Last creatinine was 0.73 on May 12, 2018. Treatment Plan: Patient was referred to Dr. Kendell Ayala Disposition: Discharged home in stable improved condition. She was reassessed at 1815. Her pain is 95% resolved. She was discharged with prescription for opiate analgesia since she has type 2 diabetes. Impression: Right inguinal pain secondary to hernia This note was generated with [employer] dictation software. It may contain incorrect words, spelling, and punctuation that were not noted in review of the chart prior to signing ED Disposition - Plan for ED Patient: Disposition: Home or Assisted Living Chief Complaint: Female C/O Instructions: ED Hernia Inguinal Prescriptions: Hydrocodone Bitart/Apap 5-325 [Flat Top 5MG-325MG] 1 tablet PO Q6H PRN PRN 3 Days #10 tablet PRN Reason: Pain Referrals: Catalina Samuels NP-C [Primary Care Provider] - Kendell Ayala MD [STAFF PHYSICIAN] - 1 Week Additional Instructions: Your prescription was electronically transmitted to [facility].
[2018-06-02] MEDS: Morphine 4 MG/ML Syringe IV (17:57)
[2018-06-02] MEDS: Ondansetron 4 MG/2 ML Vial IV (17:57)
[2018-06-02] MEDS: Ketorolac 15 MG/ML Vial IV (17:57)
[2018-06-02 18:40] VITALS: RESP 18
== END 2018-06-02 18:42 | disposition home or self-care (01) ==
PROVIDERS: Emergency Provider Emergency Medicine; Family Provider Nurse Practitioner Family; PCP Nurse Practitioner Family
DX: K40.90 Unilateral inguinal hernia, without obstruction or gangrene, not specified as recurrent (principal); I10 Essential (primary) hypertension; E11.9 Type 2 diabetes mellitus without complications; E66.9 Obesity, unspecified; Z68.36 Body mass index [BMI] 36.0-36.9, adult; Z79.84 Long term (current) use of oral hypoglycemic drugs; Z79.899 Other long term (current) drug therapy; Z72.0 Tobacco use
CPT/HCPCS: 96374; 96375; 99283; A4216; J2405

== ENCOUNTER → 2018-06-12 13:53 | Outpatient (CLI) | payer MEDICAID, SELFPAY ==
[2018-06-06 15:34] VITALS: BMI 36.4
--- NOTE | 2018-06-12 13:56 | CT_ITS ---
STUDY: CT ABDOMEN AND PELVIS WITHOUT CONTRAST REASON FOR EXAM: Female, 42 years old. Right sided/groin pain x 8 months, getting worse, possible lifting injury. RADIATION DOSAGE (If Supplied By Facility): CTDIvol = ( 13.94 ) mGy, DLP = ( 795.52 ) mGycm TECHNIQUE: Transaxial images were obtained from the dome of the diaphragm to the symphysis pubis with oral contrast, and without intravenous contrast. Sagittal and coronal images were reconstructed. Individualized dose optimization techniques were used for this CT. COMPARISON: CT abdomen and pelvis December 27, 2017; MRI pelvis February 14, 2018. FINDINGS: The visualized lung bases are unremarkable. The visualized portions of the heart are within normal limits. Normal liver. The portal vein diameter is 17 mm. Normal gallbladder and extrahepatic biliary system. The common bile duct diameter is 7 mm. Normal spleen. Normal pancreas. Normal bilateral adrenal glands. Normal right kidney. Normal left kidney. No hydronephrosis. Normal visualized stomach. Normal small intestine. Normal colon. The appendix is visualized on series 602 images 64-69 and appears normal. There is diffuse atherosclerotic calcification of the distal abdominal aorta and common iliac arteries, without a demonstrated aneurysm. Normal inferior vena cava. Normal retroperitoneum. Normal urinary bladder. Normal visualized uterus, mildly tilted left of midline. There is a very small umbilical hernia containing fat. There are multilevel degenerative changes of the visualized spine as well as degenerative periarticular sclerosis of the inferior right sacroiliac joint. CT/Abdomen/Pel W ORAL Cont Only IMPRESSION: 1. Aortoiliac atherosclerotic calcific plaquing. There is no demonstrated aneurysm. 2. No demonstrated abdominal/pelvic mass or fluid collection. 3. Degenerative changes of the spine and inferior right sacroiliac joint. Electronically Signed: Tim Hightower MD at 16:24 EST , Service support ,
== END ==
PROVIDERS: Family Provider Nurse Practitioner Family; PCP Nurse Practitioner Family; Referring Provider Surgery; Visit Provider Surgery
DX: R10.31 Right lower quadrant pain (principal)
CPT/HCPCS: 74176

== ENCOUNTER 2018-08-22 01:00 | Emergency (ER) | payer MEDICAID, SELFPAY ==
[2018-06-06 15:34] VITALS: BMI 36.4
[2018-08-22 01:01] VITALS: BP 153/114; PULSE 104; RESP 24; TEMP 37.1; O2SAT 100; BMI 34.9
--- NOTE | 2018-08-22 01:09 | EKG12_ITS ---
Test Reason : Blood Pressure : / mmHG Vent. Rate : 091 BPM Atrial Rate : 091 BPM P-R Int : 126 ms QRS Dur : 070 ms QT Int : 366 ms P-R-T Axes : 030 033 032 degrees QTc Int : 450 ms Normal sinus rhythm Septal infarct , age undetermined Abnormal ECG Confirmed by MG GRANDE, MIHIR ([id number]), sports editor GUILLE WILHELM ([id number]) on 08/23/2018 7:04:04 AM Referred By: MARIANA Confirmed By:MIHIR HOLLIDAY MD
--- NOTE | 2018-08-22 01:12 | ED.DCSUM_ITS ---
- ER Visit Summary Date of Service: 08/22/18 Chief Complaint: Meth History of Present Illness: The patient is a 43 F who presents after meth use. She smoked methamphetamine tonight. She has never used it before. This occurred about 2 hours before presentation. She immediately began to not feel well. She complains of dizziness which she describes as lightheadedness and the room spinning. She developed nausea and vomiting. She states that she just does not feel good. She called EMS. She was given IV Narcan. She denies any recent illness. No fever chest pain shortness of breath. She denies any pain currently. Physical Examination: Blood pressure 153/114, heart rate 104, respiratory rate 24 Moist mucous membranes Heart regular tachycardia Lungs clear Abdomen soft nontender Diaphoretic Alert Tearful Test Results: EKG shows sinus rhythm at a rate of 91 and there is some baseline wander in V2 V3 there are no acute ischemic changes. Labs are notable for white blood cell count of 20.1, potassium 3.3. Troponin is negative. Chest x-ray shows no acute disease. Emergency Department Course and Treatment: Patient was treated with IV Ativan and Zofran. She did develop recurrent symptoms are required a second dose of IV Ativan. She was observed here. Her white blood cell count is likely a stress reaction. She does not have any infectious symptoms. There is no fever. Her chest x-ray is normal. She denies any urinary symptoms. She does feel better on reevaluation and is resting comfortably. She was discharged with a family member. Treatment Plan: [] Disposition: Discharge Impression: Methamphetamine abuse This note was generated with [employer] dictation software. It may contain incorrect words, spelling, and punctuation that were not noted in review of the chart prior to signing ED Disposition - Plan for ED Patient: Disposition: Home or Assisted Living Instructions: ED Drug Abuse General Referrals: Catalina Samuels NP-C [Primary Care Provider] -
[2018-08-22] MEDS: Ondansetron 4 MG/2 ML Vial IV (01:20)
[2018-08-22] MEDS: LORazepam 2 MG/ML Syringe 1 MG IV (01:20)
[2018-08-22 01:34] LABS: Absolute Lymphocyte Count 2.89 X10^3/ul (0.83-4.51); Absolute Neutrophil Count 15.4 X10^3/uL (2.0-7.7); Basophil# 0.07 X10^3/uL; Basophil% 0.3 % (0-1); Eosinophil# 0.59 X10^3/uL; Eosinophils% 2.9 % (0-5); Hematocrit 43.9 % (37-47); Hemoglobin 14.8 g/dl (12.0-15.0); Lymphocyte # 2.89 X10^3/ul (4.0); Lymphocyte % 14.3 % (19-41); Mean Corp Hgb Conc 33.7 g/gl (32-36); Mean Corpuscular Hgb 30.7 pg (27.0-32.0); Mean Corpuscular Volume 91.1 fL (81-99); Mean Platelet Vol. 8.7 fl (6.2-12.0); Monocyte# 1.08 X10^3/uL; Monocyte% 5.4 % (0-10); Neutrophil # 15.43 X10^3/uL (2.7-7.7); Neutrophil % 76.7 % (47-70); POSITIVE COUNT NO; POSITIVE DIFFERENTIAL NO; POSITIVE MORPHOLOGY NO; Platelet Count 443 K/mm3 (150-450); RBC Distribution Width SD 46.5 fl (35.1-43.9); Red Blood Count 4.82 M/mm3 (4.2-5.4); White Blood Count 20.1 K/mm3 (4.4-11.0)
[2018-08-22 01:50] LABS: Anion Gap 8 (5-15); BUN 7 mg/dL (7-18); BUN/Creat Ratio 7.6 RATIO (10-20); Calcium,Total 9.2 mg/dL (8.5-10.1); Chloride 103 mmol/L (98-107); Creatinine, Serum 0.92 mg/dL (0.55-1.02); EST Glomerular Filtration Rate 70 mL/min (>60); Est Glom Filt Rate - Afr Amer 85 mL/min (>60); Estimated Creatinine Clearance 58.88 ml/min; Glucose 219 mg/dL (74-106); Potassium 3.3 mmol/L (3.5-5.1); Sodium Level 137 mmol/L (136-145)
--- NOTE | 2018-08-22 01:52 | RAD_ITS ---
HISTORY: OVERDOSE EXAM:XR Chest 1 View: Portable COMPARISON: 12/27/2017 FINDINGS: EKG leads in place. Limited inspiration with mild hypoventilation of the lung bases. Normal heart size. No acute infiltrate. No vascular congestion or pleural effusion. No pneumothorax. The bony thorax appears intact. RAD/Chest 1 View (Portable) IMPRESSION: No acute cardiopulmonary disease. at 0233 Reported and signed by: Kian Villeda MD Electronically Signed: Kian Villeda, at 2:32 EDT Tel , Service support ,
--- NOTE | 2018-08-22 02:00 | DCINST.ED_ITS ---
ED Disposition - Plan for ED Patient: Instructions: ED Drug Abuse General Referrals: Catalina Samuels, BRICK MASON-C [Primary Care Provider] -
--- NOTE | 2018-08-22 02:00 | ED.DEP ---
ED Disposition - Plan for ED Patient: Instructions: ED Drug Abuse General Referrals: Catalina Samuels, F[employer]IGHT ASSOCIATE-C [Primary Care Provider] -
--- NOTE | 2018-08-22 03:47 | ED.RN ---
SEE DOWNTIME DOCUMENTATION FROM 0200 TO D/C
== END 2018-08-22 02:55 | disposition home or self-care (01) ==
LOC: ED 01:22
PROVIDERS: Emergency Provider Emergency Medicine; Family Provider Nurse Practitioner Family; PCP Nurse Practitioner Family
DX: F15.10 Other stimulant abuse, uncomplicated (principal); R11.2 Nausea with vomiting, unspecified; R42 Dizziness and giddiness; R00.0 Tachycardia, unspecified; E11.9 Type 2 diabetes mellitus without complications; I10 Essential (primary) hypertension; Z72.0 Tobacco use; Z79.4 Long term (current) use of insulin; Z79.899 Other long term (current) drug therapy
CPT/HCPCS: 71045; 80048; 84484; 85025; 93005; 96374; 96375; 99284; A4216; J2405

== ENCOUNTER 2018-11-02 08:06 | Emergency (ER) | payer MEDICAID, SELFPAY ==
[2018-11-02 08:07] VITALS: BP 169/89; PULSE 108; RESP 16; TEMP 36.4; O2SAT 99; BMI 32.9
--- NOTE | 2018-11-02 08:24 | ED.VIS.GEN ---
History of Present Illness Chief Complaint: Rash Narrative: 43-year-old female presents with rash for 2 to 3 days. She denies any changes in medication or unusual food intake. She states that her cat does have fleas and she thought that perhaps her rash could have been from fleabites. She is still eating and drinking normally. No trouble swallowing or throat swelling. The onset of her rash was gradual. The severity is mild. She has not tried any medication yet. Past Medical History - Allergies and Home Meds Allergies/Adverse Reactions: Allergies No Known Allergies Allergy (Verified 11/02/18 08:18) Primary Care Physician: Catalina Samuels NP-C [Primary Care Provider] - Prior records reviewed: Yes Past Medical History: - - Psoriasis Smoking Status: Current every day smoker - Family History Paternal Family History: Family History (Last Updated 06/06/18 @ 15:32 by Morenita Martinez) Mother Arthritis Diabetes Father Diabetes Hypertension High cholesterol Family History: Reports: Heart Disease Review of Systems General: Denies: Chills, Fever, Sweats Eyes: Denies: Visual changes - bilaterally, Diplopia ENT: Denies: Rhinorrhea, Sore throat Cardiovascular: Denies: Chest pain, Palpitations Respiratory: Denies: Dyspnea, Cough, Dyspnea on exertion Gastrointestinal: Denies: Abdominal pain, Nausea, Vomiting, Diarrhea, Melena, Hematochezia Genitourinary: Denies: Dysuria, Hematuria, Frequency Musculoskeletal: Denies: Back pain, Extremity Pain Skin: Reports: Rash. Denies: Wounds Neurological: Denies: Headache, Weakness, Numbness Physical Exam Vital Signs/Narrative: Vital Signs Temp Pulse Resp BP Pulse Ox 11/02/18 08:07 97.5 F L 108 H 16 169/89 H 99 General: Well nourished, Well developed, No Acute Distress Head: Normocephalic, Atraumatic Eyes: Perrl, EOMI ENT: Moist mucous membranes, No rhinorrhea Neck: Supple, Nontender Cardiovascular: Regular rate, Regular rhythm, No murmurs Respiratory: No distress, CTA bilaterally, Chest nontender Abdomen: Soft, Nontender, Nondistended, Normal bowel sounds Back: Nontender, Normal Inspection Extremities: Nontender, No edema Skin: Normal color, Rash - raised maculopapular rash on extremities. No petechiae. No secondary cellulitis. No mucous membrane involvement. Neurological: Alert, Oriented x3, Cranial nerves II-XII grossly intact, Normal Strength, Normal Sensation Psychological: Normal affect, Normal Mood Diagnostic/Tx/Re-eval - Medical Decision Making She has no evidence of secondary cellulitis. Throat looks normal. Her cat is currently at the vet and she is going to have you treated for fleas and check her house as well. I will treated with prednisone and Benadryl. She will follow-up if not improving. ED Disposition - Plan for ED Patient: Instructions: ED Dermatitis Non Specific Rash Prescriptions: Diphenhydramine HCl [Benadryl Allergy] 25 mg PO 4X/DAY PRN PRN #20 tablet PRN Reason: Rash/Topical Irritation Prednisone 10 mg PO UD #33 tablet Referrals: Catalina Samuels NP-C [Primary Care Provider] -
[2018-11-02] MEDS: predniSONE 20 MG Tablet 60 MG PO (08:53)
[2018-11-02] MEDS: DiphenhydrAMINE 25 MG Capsule 50 MG PO (08:53)
== END 2018-11-02 08:55 | disposition home or self-care (01) ==
LOC: ED 08:38
PROVIDERS: Emergency Provider Emergency Medicine; Family Provider Nurse Practitioner Family; PCP Nurse Practitioner Family
DX: L30.9 Dermatitis, unspecified (principal); L40.9 Psoriasis, unspecified; F17.200 Nicotine dependence, unspecified, uncomplicated; Z79.4 Long term (current) use of insulin; Z79.52 Long term (current) use of systemic steroids; Z79.899 Other long term (current) drug therapy
CPT/HCPCS: 99283

== ENCOUNTER → 2019-03-29 08:30 | Outpatient (CLI) | payer MEDICAID, SELFPAY ==
[2019-03-29 09:28] LABS: Hematocrit 39.1 % (37-47); Hemoglobin 13.1 g/dL (12.0-15.0); Mean Corp Hgb Conc 33.5 g/dL (32-36); Mean Corpuscular Hgb 30.9 pg (27.0-32.0); Mean Corpuscular Volume 92.2 fL (81-99); Platelet Count 432 K/mm3 (150-450); RBC Distribution Width CV 14.7 % (11.6-14.6); RBC Distribution Width SD 49.4 fl (35.1-43.9); Red Blood Count 4.24 M/mm3 (4.2-5.4)
[2019-03-29 09:59] LABS: ALB/GLOB Ratio 0.9 RATIO (0.9-2.4); AST(SGOT) 14 U/L (15-37); Alanine Aminotransfer ALT/SGPT 26 U/L (13-56); Albumin, Serum 3.3 g/dL (3.2-5.0); Alkaline Phosphatase 116 U/L (45-117); Anion Gap 6 (5-15); BUN 14 mg/dL (7-18); BUN/Creat Ratio 19.6 RATIO (10-20); Calcium,Total 9.1 mg/dL (8.5-10.1); Chloride 105 mmol/L (98-107); Cholesterol 293 mg/dL (200); Creatinine, Serum 0.71 mg/dL (0.55-1.02); EST Glomerular Filtration Rate 94 mL/min (>60); Est Glom Filt Rate - Afr Amer 114 mL/min (>60); Globulin 3.7 g/dL (2.2-4.2); Glucose 199 mg/dL (74-106); High Density Lipoprotein 35 mg/dL; Lipase 148 U/L (73-393); Potassium 3.5 mmol/L (3.5-5.1); Sodium Level 138 mmol/L (136-145); Triglycerides 346 mg/dL; Very Low Density Lipoprotein 69 mg/dL (5-40)
[2019-03-29 10:03] LABS: Hemoglobin A1c 8.4 % (4.2-6.3)
== END ==
PROVIDERS: Family Provider Nurse Practitioner Family; PCP Nurse Practitioner Family; Referring Provider Nurse Practitioner Family; Visit Provider Nurse Practitioner Family
DX: R10.11 Right upper quadrant pain (principal); E11.9 Type 2 diabetes mellitus without complications; R82.81 Pyuria
CPT/HCPCS: 36415; 80053; 80061; 83036; 83690; 85027; 87086; 87088

== ENCOUNTER 2019-04-09 10:53 | Emergency (ER) | payer MEDICAID, SELFPAY ==
[2019-04-09 10:59] VITALS: BP 219/109; PULSE 85; RESP 22; TEMP 36.6; O2SAT 100; BMI 35.7
--- NOTE | 2019-04-09 11:01 | RAD_ITS ---
STUDY: X-RAY CHEST REASON FOR EXAM: Female, 43 years old. Epigastric pain. Nausea and vomiting. TECHNIQUE: Single AP portable view of the chest. COMPARISON: Comparison is made with prior study of August 22, 2018. FINDINGS: EKG electrodes are seen. The lungs are clear and expanded. There is no demonstrated pleural abnormality. Normal size heart. Normal mediastinum and jolly. Normal visualized pulmonary arteries. Normal visualized aortic arch and descending thoracic aorta. Normal visualized thoracic spine. Normal visualized ribs, clavicles, and shoulders. There is no demonstrated abnormality of the visualized soft tissue structures of the upper abdomen. RAD/Chest 1 View (Portable) IMPRESSION: Normal x-ray examination of the chest. Electronically Signed: Aramis Dow, at 11:58 EST , Service support ,
--- NOTE | 2019-04-09 11:02 | EKG12_ITS ---
Test Reason : DIZZINESS Blood Pressure : / mmHG Vent. Rate : 077 BPM Atrial Rate : 077 BPM P-R Int : 134 ms QRS Dur : 084 ms QT Int : 408 ms P-R-T Axes : 050 036 047 degrees QTc Int : 461 ms Normal sinus rhythm Normal ECG Confirmed by MG GRANDE, MIHIR ([id number]), school photograph editor JAYLA VALENTIN ([id number]) on 04/16/2019 2:00:15 PM Referred By: PRATIK Confirmed By:MIHIR HOLLIDAY MD
--- NOTE | 2019-04-09 11:04 | US_ITS ---
STUDY: ABDOMINAL ULTRASOUND - RIGHT UPPER QUADRANT REASON FOR VISIT: Female, 43 years old. Right upper quadrant pain. TECHNIQUE: Ultrasound evaluation of the right upper quadrant was performed with real-time and static sierra-scale imaging. TECHNICAL QUALITY: Adequate. COMPARISON: CT scan dated June 12, 2018. FINDINGS: Liver: The liver measures 16.7 cm. There is a heterogeneous echogenicity of the liver. The bile ducts are within normal limits. There is hepatic color flow. The direction of portal flow is hepatopetal. There is no demonstrated mass lesion. Gallbladder: Normal distended gallbladder. The gallbladder wall measures 2.5 mm. There is a negative sonographic Bangura's sign. There is no pericholecystic fluid. There are no gallstones. Common Bile Duct (C.B.D.): The common bile duct measures 2.0 mm. Pancreas: Normal size of the head and body of the pancreas. There is normal echogenicity of the pancreas. There is no demonstrated pancreatic mass or cyst. Pancreatic tail not seen. Right Kidney: Normal size of the right kidney. The right kidney measures 10.6 cm. Normal renal cortex. The right cortex measures 2.0 cm. There is no demonstrated renal mass or cyst. There is no right hydronephrosis. US/Gallbladder IMPRESSION: Hepatic steatosis Pancreatic tail not seen Otherwise normal right upper quadrant ultrasound Electronically Signed: Adilson Lopez DO at 12:27 EST Tel , Service support ,
--- NOTE | 2019-04-09 11:04 | ED.VIS.GEN ---
History of Present Illness Chief Complaint: Dizziness Narrative: Patient presents with epigastric, right upper quadrant pain and anxiety. She arrives via EMS. She has had right upper quadrant pain for a few months it has been intermittent, she is apparently due to have an ultrasound tomorrow, she developed pain as she woke up today prior to eating. She has not been able to eat yet today. Symptoms have been ongoing for 3 hours, she has nausea, she has no chest pain shortness of breath fever or chills. This pain does not radiate into her back it is not tearing. She has no lower abdominal pain. Past Medical History - Allergies and Home Meds Allergies/Adverse Reactions: Allergies No Known Allergies Allergy (Verified 04/09/19 10:58) Primary Care Physician: Catalina Samuels NP-C [Primary Care Provider] - Past Medical History: - - Reviewed and overall unremarkable. Smoking Status: Current every day smoker - Family History Paternal Family History: Family History (Last Updated 06/06/18 @ 15:32 by Morenita Martinez) Mother Arthritis Diabetes Father Diabetes Hypertension High cholesterol Family History: Reports: Heart Disease Review of Systems All systems negative except as indicated General: Denies: Fever Eyes: Denies: Visual changes - bilaterally ENT: Denies: Rhinorrhea Cardiovascular: Denies: Chest pain Respiratory: Denies: Dyspnea, Cough Gastrointestinal: Reports: Abdominal pain, Nausea, Vomiting Genitourinary: Denies: Dysuria Musculoskeletal: Denies: Myalgias, Neck pain Skin: Denies: Rash Neurological: Denies: Weakness Psych: Reports: Anxiety Endocrine: Denies: Polyuria Hematologic: Denies: Easy bruising Allergy: Denies: Swelling of the mouth Physical Exam Vital Signs/Narrative: Vital Signs Temp Pulse Resp BP Pulse Ox 04/09/19 10:59 97.9 F 85 22 H 219/109 H 100 General: Well nourished, - - He appears quite anxious she has some distress and she is tearful Head: Normocephalic Eyes: Perrl ENT: Moist mucous membranes Cardiovascular: Regular rate, Regular rhythm Respiratory: No distress, CTA bilaterally Abdomen: Soft, - - There is reproducible epigastric pain, some right upper quadrant pain but negative Bangura's. No lower abdominal pain. No guarding or rebound. No flank pain Back: Nontender Extremities: Negative for: No edema Skin: Normal color Neurological: Alert, Oriented x3 Psychological: Normal affect Diagnostic/Tx/Re-eval - Rhythm Strip Rhythm Strip: Sinus Rhythm Rate: 77 Ectopy: None - EKG Initial EKG Interpretation: Sinus Rhythm, - - Rate 77, normal AL normal QTC intervals. No ischemic changes Interpreted by emergency doctor - Medical Decision Making Patient has a normal ED work-up, she was treated and she feels significantly improved. She certainly had anxiety but she may have had gastritis also. I will treat her with some Carafate, otherwise she can follow-up with PCP. ED Disposition - Plan for ED Patient: Disposition: Home or Assisted Living Diagnosis: Patient in stable condition at discharge, Abdominal pain Instructions: ABDOMINAL PAIN, Unknown Cause, (Female) Prescriptions: Sucralfate [Carafate] 1 gm PO 4X/DAY #20 tab Prescription Printed Hydroxyzine Pamoate [Vistaril] 50 mg PO BID PRN PRN #20 cap PRN Reason: Anxiety Prescription Printed Referrals: Catalina Samuels NP-C [Primary Care Provider] - 3-5 Days
[2019-04-09] MEDS: Morphine 4 MG/ML Syringe IV (11:13)
[2019-04-09] MEDS: LORazepam 2 MG/ML Syringe 1 MG IV (11:14)
[2019-04-09 11:37] LABS: Absolute Lymphocyte Count 4.21 X10^3/uL (0.83-4.51); Absolute Neutrophil Count 7.6 X10^3/uL (2.0-7.7); Basophil# 0.13 X10^3/uL; Eosinophil# 0.38 X10^3/uL; Eosinophils% 2.8 % (0-5); Hematocrit 43.7 % (37-47); Hemoglobin 14.7 g/dL (12.0-15.0); Lymphocyte # 4.21 X10^3/ul (4.0); Lymphocyte % 31.2 % (19-41); Mean Corp Hgb Conc 33.6 g/dL (32-36); Mean Corpuscular Hgb 30.8 pg (27.0-32.0); Mean Corpuscular Volume 91.6 fL (81-99); Mean Platelet Vol. 8.8 fl (6.2-12.0); Monocyte% 7.4 % (0-10); NRBC Flagged by Analyzer 0 % (0-5); Neutrophil # 7.58 X10^3/uL (2.7-7.7); Neutrophil % 56.2 % (47-70); POSITIVE COUNT YES; POSITIVE MORPHOLOGY YES; Platelet Count 507 K/mm3 (150-450); RBC Distribution Width SD 47.5 fl (35.1-43.9); Red Blood Count 4.77 M/mm3 (4.2-5.4); White Blood Count 13.5 K/mm3 (4.4-11.0)
[2019-04-09 11:41] LABS: Differential Indicated SCAN CRITERIA MET
[2019-04-09 11:42] VITALS: PULSE 89; RESP 21; O2SAT 94
[2019-04-09] MEDS: DiphenhydrAMINE 50 MG/ML Syringe 25 MG IV (11:44)
[2019-04-09] MEDS: Metoclopramide 10 MG/2 ML Vial IV (11:44)
[2019-04-09 11:59] LABS: Differential Comment SCANNED
[2019-04-09 12:00] LABS: Atypical Lymphocyte 1+ %; Platelet Estimate MOD INC (ADEQ); Red Cell Morphology NORM C+C NORMAL (NORM C&C)
[2019-04-09 12:46] LABS: ALB/GLOB Ratio 0.9 RATIO (0.9-2.4); AST(SGOT) 26 U/L (15-37); Alanine Aminotransfer ALT/SGPT 32 U/L (13-56); Albumin, Serum 3.2 g/dL (3.2-5.0); Alkaline Phosphatase 107 U/L (45-117); Anion Gap 9 (5-15); BUN 9 mg/dL (7-18); BUN/Creat Ratio 15.2 RATIO (10-20); Calcium,Total 8.4 mg/dL (8.5-10.1); Chloride 104 mmol/L (98-107); Creatinine, Serum 0.59 mg/dL (0.55-1.02); EST Glomerular Filtration Rate 117 mL/min (>60); Est Glom Filt Rate - Afr Amer 141 mL/min (>60); Estimated Creatinine Clearance 100.66 ml/min; Globulin 3.4 g/dL (2.2-4.2); Glucose 191 mg/dL (74-106); Lipase 76 U/L (73-393); Potassium 3.7 mmol/L (3.5-5.1); Protein, Total 6.6 g/dL (6.4-8.2); Sodium Level 138 mmol/L (136-145)
[2019-04-09 13:25] VITALS: BP 127/72; PULSE 84; RESP 17; O2SAT 93
== END 2019-04-09 13:40 | disposition home or self-care (01) ==
PROVIDERS: Emergency Provider Emergency Medicine; Family Provider Nurse Practitioner Family; PCP Nurse Practitioner Family
DX: R10.11 Right upper quadrant pain (principal); R10.13 Epigastric pain; R42 Dizziness and giddiness; R11.0 Nausea; F41.9 Anxiety disorder, unspecified; F17.200 Nicotine dependence, unspecified, uncomplicated; Z79.899 Other long term (current) drug therapy
CPT/HCPCS: 71045; 76705; 80053; 83690; 84484; 85025; 93005; 96374; 96375; 99285; J7030; A4216; J2405

== ENCOUNTER → 2019-07-10 14:32 | Outpatient (CLI) | payer MEDICAID, SELFPAY ==
--- NOTE | 2019-07-10 14:45 | RAD_ITS ---
STUDY: X-RAY - CERVICAL SPINE REASON FOR EXAM: Female, 43 years old. Neck pain and headache TECHNIQUE: 4 view(s) of the cervical spine were obtained. COMPARISON: None FINDINGS: Normal anterior atlantoaxial articulation. Normal odontoid process. Normal cervical lordosis. Normal vertebral bodies and endplates. Normal disc space heights. Normal visualized intervertebral neuroforamina. The soft tissue structures are unremarkable. RAD/Cerv Spine 2 or 3 Views IMPRESSION: Normal x-ray examination of the visualized cervical spine. Electronically Signed: Tim Quesada MD at 13:36 EST , Service support ,
== END ==
PROVIDERS: PCP Nurse Practitioner Family; Referring Provider Nurse Practitioner Family; Visit Provider Nurse Practitioner Family
DX: M54.2 Cervicalgia (principal)
CPT/HCPCS: 72040

== ENCOUNTER 2019-07-29 14:42 | Emergency (ER) | payer MEDICAID, SELFPAY ==
[2019-07-29 14:43] VITALS: BP 119/74; PULSE 118; RESP 18; TEMP 36.2; O2SAT 99; BMI 33.6
--- NOTE | 2019-07-29 15:23 | ED.VIS.GEN ---
History of Present Illness Chief Complaint: Back Informant: Patient Narrative: Patient presents the emergency department with upper neck and back pain. Symptoms of been present for years. She recently went and saw primary care in [place] and had cervical spine films that were normal. She states she was put on Mobic. This was not helping so she called them today but they could not see her today she got mad and hung up the phone and came to the emergency department. She states that they also prescribed some physical therapy and she went 1 time but it made her so sore there is no way she can go back. There is nothing different about her pain today that was not present 2 years ago. She describes it as started in the upper neck radiating down both sides to the shoulder and under the axilla. Almost in the trapezius distribution. No radicular symptoms to the hands. She states that at times she gets numbness, lightheaded feeling. Past Medical History - Allergies and Home Meds Allergies/Adverse Reactions: Allergies No Known Allergies Allergy (Verified 07/29/19 14:43) Primary Care Physician: Catalina Samuels NP-C [Primary Care Provider] - Smoking Status: Current every day smoker - Family History Paternal Family History: Family History (Last Updated 06/06/18 @ 15:32 by Morenita Martinez) Mother Arthritis Diabetes Father Diabetes Hypertension High cholesterol Family History: Reports: Heart Disease Review of Systems General: Denies: Chills, Fever, Sweats Eyes: Denies: Visual changes - bilaterally, Diplopia ENT: Denies: Rhinorrhea, Sore throat Cardiovascular: Denies: Chest pain, Palpitations Respiratory: Denies: Dyspnea, Cough, Dyspnea on exertion Gastrointestinal: Denies: Abdominal pain, Nausea, Vomiting, Diarrhea, Melena, Hematochezia Genitourinary: Denies: Dysuria, Hematuria, Frequency Musculoskeletal: Reports: Neck pain, Back pain. Denies: Extremity Pain Skin: Denies: Rash, Wounds Neurological: Denies: Headache, Weakness, Parasthesia, Numbness Physical Exam Vital Signs/Narrative: Vital Signs Temp Pulse Resp BP Pulse Ox 07/29/19 14:43 97.1 F L 118 H 18 119/74 99 Inital Vital Signs reviewed: Yes General: Well nourished, Well developed, No Acute Distress Head: Normocephalic, Atraumatic Eyes: Perrl, EOMI ENT: Moist mucous membranes, No rhinorrhea Neck: Supple, Nontender Cardiovascular: Regular rate, Regular rhythm, No murmurs Respiratory: No distress, CTA bilaterally, Chest nontender Abdomen: Soft, Nontender, Nondistended, Normal bowel sounds Back: - - Patient complains of muscular tenderness to palpation throughout the upper thoracic and cervical musculature Extremities: Nontender, No edema Skin: Normal color, No rash Neurological: Alert, Oriented x3, Cranial nerves II-XII grossly intact, Normal Strength, Normal Sensation Psychological: Normal affect, Normal Mood Diagnostic/Tx/Re-eval - Medical Decision Making This seems more like a chronic issue. Explained to the patient do not see any emergent causes for her pain. I can try a Lidoderm patch and a muscle relaxant. I would encourage her to follow-up with primary care and I would encourage her to keep doing physical therapy as it certainly seems more muscular in nature than neuropathic. ED Disposition - Plan for ED Patient: Disposition: Home or Assisted Living Diagnosis: Back pain Instructions: BACK PAIN (Acute or Chronic) Prescriptions: cycloBENZAPRine HCl [Flexeril] 10 mg PO TID PRN #15 tab PRN Reason: Muscle Spasm Prescription Printed Lidocaine [Lidoderm Patch] 1 patch TOPICAL DAILY #20 patch Prescription Printed Referrals: Catalina Samuels NP-C [Primary Care Provider] - As soon as possible
== END 2019-07-29 15:51 | disposition home or self-care (01) ==
LOC: ED 15:33
PROVIDERS: Emergency Provider Emergency Medicine; PCP Nurse Practitioner Family
DX: M54.9 Dorsalgia, unspecified (principal); M54.2 Cervicalgia; G89.29 Other chronic pain; F17.200 Nicotine dependence, unspecified, uncomplicated; Z79.899 Other long term (current) drug therapy
CPT/HCPCS: 99282

== ENCOUNTER → 2019-11-28 13:04 | Outpatient (CLI) | payer MEDICAID, SELFPAY ==
--- NOTE | 2019-11-28 13:45 | MRI_ITS ---
STUDY: MRI RIGHT SHOULDER REASON FOR EXAM: Female, 44 years old. RIGHT shoulder and arm pain x months. NKI. Painful ROM TECHNIQUE: Standardized fat and water weighted pulse sequences were obtained in all 3 orthogonal planes. COMPARISON: None. FINDINGS: Mild supraspinatus and infraspinatus tendinosis and peritendinitis is but no macro tear. Severe subscapularis tendinosis with an interstitial tear and interstitial subluxation long head of the biceps tendon which is severely tendonopathic. Normal teres minor tendon. Normal supraspinatus muscle. Normal infraspinatus muscle. Normal subscapularis muscle. Normal teres minor muscle. Mild glenohumeral joint arthrosis with osteophyte formation of the humeral head, subchondral cyst formation of the glenoid, small joint effusion with a calcified body in the subcoracoid recess per. Normal humeral head and visualized proximal humerus. Normal biceps labral complex. Normal intracapsular long biceps tendon. Normal labrum. Normal capsulo- ligamentous complex. Normal rotator interval. There is mild osteoarthritis of the acromioclavicular articulation. There is a Type II morphology (curved), with a neutral orientation. There is no subacromial-subdeltoid bursal fluid. Normal visualized coracohumeral and coracoacromial ligaments. Normal quadrilateral space. Normal axillary space. Normal deltoid muscle. Normal trapezius muscle. MRI/Upper Ext Joint Only(Routine) IMPRESSION: 1. Mild glenohumeral joint arthrosis with small joint effusion and calcified bodies in the subcoracoid recess. 2. Severe subscapularis tendinosis with an interstitial tear with interstitial subluxation long head of the biceps tendon. 3. Mild supraspinatus and infraspinatus tendinosis and peritendinitis is but no macro tear or muscular atrophy. 4. Mild acromioclavicular joint arthrosis. Electronically Signed: Sachin Fernandez MD at 17:49 EDT Tel , Service support ,
== END ==
PROVIDERS: PCP Nurse Practitioner Family; Referring Provider Nurse Practitioner Family; Visit Provider Nurse Practitioner Family
DX: M25.511 Pain in right shoulder (principal); R20.2 Paresthesia of skin
CPT/HCPCS: 73221

== ENCOUNTER → 2020-02-18 11:01 | Outpatient (CLI) | payer MEDICAID, SELFPAY ==
[2020-02-18 11:37] LABS: Absolute Neutrophil Count 7.1 X10^3/uL (2.0-7.7); Basophil# 0.08 X10^3/uL; Basophil% 0.7 % (0-1); Eosinophil# 0.42 X10^3/uL; Eosinophils% 3.6 % (0-5); Hematocrit 42.8 % (37-47); Hemoglobin 13.7 g/dL (12.0-15.0); Lymphocyte % 28.1 % (19-41); Mean Corpuscular Hgb 28.3 pg (27.0-32.0); Mean Corpuscular Volume 88.4 fL (81-99); Mean Platelet Vol. 8.6 fl (6.2-12.0); Monocyte# 0.69 X10^3/uL; Monocyte% 5.9 % (0-10); NRBC Flagged by Analyzer 0 % (0-5); Neutrophil # 7.14 X10^3/uL (2.7-7.7); Neutrophil % 60.8 % (47-70); Platelet Count 551 K/mm3 (150-450); RBC Distribution Width CV 15.1 % (11.6-14.6); RBC Distribution Width SD 48.4 fl (35.1-43.9); Red Blood Count 4.84 M/mm3 (4.2-5.4); White Blood Count 11.7 K/mm3 (4.4-11.0)
[2020-02-18 11:57] LABS: Microalbumin,Random Urine 14.2 mg/L (NO RANGE EST.); Microalbumin:Creatinine Ratio 8.9 mg/g CRE (<30 mg/g CRE)
[2020-02-18 12:03] LABS: ALB/GLOB Ratio 0.8 RATIO (0.9-2.4); AST(SGOT) 31 U/L (15-37); Alanine Aminotransfer ALT/SGPT 37 U/L (13-56); Albumin, Serum 3.5 g/dL (3.2-5.0); Alkaline Phosphatase 101 U/L (45-117); Anion Gap 9 (5-15); BUN 17 mg/dL (7-18); BUN/Creat Ratio 18.6 RATIO (10-20); Bilirubin, Direct 0.09 mg/dL (0.00-0.30); Calcium,Total 9.3 mg/dL (8.5-10.1); Chloride 100 mmol/L (98-107); Cholesterol 369 mg/dL (200); Creatinine, Serum 0.91 mg/dL (0.55-1.02); EST Glomerular Filtration Rate 71 mL/min (>60); Est Glom Filt Rate - Afr Amer 85 mL/min (>60); Globulin 4.2 g/dL (2.2-4.2); Glucose 233 mg/dL (74-106); High Density Lipoprotein 41 mg/dL; Protein, Total 7.7 g/dL (6.4-8.2); Sodium Level 136 mmol/L (136-145); Triglycerides 525 mg/dL
[2020-02-18 12:06] LABS: Hemoglobin A1c 9.7 % (3.8-5.6)
[2020-02-18 12:39] LABS: Hepatitis B Surface Antibody Non-Reactive; Hepatitis B Surface Antigen Non-Reactive (Nonreactive); Hepatitis C Antibody Non-Reactive (Nonreactive)
[2020-02-21 20:07] LABS: QNTFERON TB Mitogen Value > 10.00 IU/mL (.); QNTFERON TB Nil Value 0.01 IU/mL (.); QNTFERON TB1+ Ag Value 0.04 IU/mL (.); QNTFERON TB2+ Ag Value 0.01 IU/mL (.)
[2020-02-21 21:25] LABS: Hepatitis B Core Ab Total Negative (Negative); QNTIFERON TB Positive Criteria Negative (Negative)
== END ==
PROVIDERS: PCP Nurse Practitioner Family; Referring Provider Nurse Practitioner Family; Visit Provider Nurse Practitioner Family
DX: E11.9 Type 2 diabetes mellitus without complications (principal); L40.0 Psoriasis vulgaris; Z79.899 Other long term (current) drug therapy
CPT/HCPCS: 36415; 80053; 80061; 82043; 82248; 82570; 83036; 85025; 86480; 86704; 86706; 86803; 87340

== ENCOUNTER 2020-03-25 14:07 | Emergency (ER) | payer MEDICAID, SELFPAY ==
[2020-03-25 14:09] VITALS: BP 150/103; PULSE 98; RESP 18; TEMP 36.1; O2SAT 98; BMI 33.6
--- NOTE | 2020-03-25 15:08 | ED.DCSUM_ITS ---
History of Present Illness Chief Complaint: Back Informant: Patient Narrative: Patient presents with 3 to 4-day history of right-sided back pain radiating to her right leg all the way into her foot. She has no bowel or bladder compromise no urinary retention symptoms no saddle anesthesia. She has no fever or chills. No known trauma. Has a history of back pain in the past. Past Medical History - Allergies and Home Meds Allergies/Adverse Reactions: Allergies No Known Allergies Allergy (Verified 03/25/20 14:09) Primary Care Physician: Catalina Samuels CONTINUOUS IMPROVEMENT DIRECTOR, CONTINUOUS IMPROVEMENT DIRECTOR-C [Primary Care Provider] - Past Medical History: - - Hypertension, diabetes Smoking Status: Current every day smoker - Family History Paternal Family History: Family History (Last Updated 06/06/18 @ 15:32 by Morenita Martinez) Mother Arthritis Diabetes Father Diabetes Hypertension High cholesterol Family History: Reports: Heart Disease Review of Systems All systems negative except as indicated General: Denies: Fever Eyes: Denies: Visual changes - bilaterally Cardiovascular: Denies: Chest pain, Palpitations Respiratory: Denies: Dyspnea Gastrointestinal: Denies: Abdominal pain, Nausea Genitourinary: Reports: - - Retention symptoms. No incontinence. Denies: Dysuria Musculoskeletal: Reports: Back pain Skin: Denies: Rash Neurological: Reports: -. Denies: Headache, Weakness, Parasthesia Hematologic: Denies: Easy bleeding Physical Exam Vital Signs/Narrative: Vital Signs Temp Pulse Resp BP Pulse Ox 03/25/20 14:09 97 F L 98 18 150/103 H 98 General: Well nourished, Well developed Head: Normocephalic Cardiovascular: Regular rate, Regular rhythm Respiratory: No distress, CTA bilaterally Abdomen: Soft, Nontender Back: - - Mostly right paraspinal and right upper buttock pain to palpation Extremities: No edema. Negative for: Tenderness Skin: Normal color Neurological: - - Normal patellar and Achilles reflexes. Normal plantar flexion and dorsiflexion of both feet and great toes. Diagnostic/Tx/Re-eval - Medical Decision Making Patient has no red flags. She appears well I will discharge her with gabapentin and analgesia. ED Disposition - Plan for ED Patient: Disposition: Home or Assisted Living Diagnosis: Sciatica Instructions: ED LUMBAR RADICULOPATHY Prescriptions: Gabapentin 300 mg PO TID #20 cap Prescription Printed Hydrocodone Bitart/Apap 5-325 [[place] 5MG-325MG] 1 tab PO Q4H PRN PRN 2 Days #8 tab PRN Reason: Pain Prescription Printed Referrals: Catalina Samuels CONTINUOUS IMPROVEMENT DIRECTOR, CONTINUOUS IMPROVEMENT DIRECTOR-C [Primary Care Provider] -
== END 2020-03-25 15:29 | disposition home or self-care (01) ==
LOC: ED 15:25
PROVIDERS: Emergency Provider Emergency Medicine; PCP Nurse Practitioner Family
DX: M54.31 Sciatica, right side (principal); E11.9 Type 2 diabetes mellitus without complications; I10 Essential (primary) hypertension; F17.200 Nicotine dependence, unspecified, uncomplicated; Z79.4 Long term (current) use of insulin; Z79.899 Other long term (current) drug therapy
CPT/HCPCS: 99282

== ENCOUNTER → 2020-06-30 10:56 | Outpatient (CLI) | payer MEDICAID, SELFPAY ==
[2020-06-30 13:25] LABS: Rheumatoid Factor < 10.0 IU/mL (<15)
[2020-07-01 20:53] LABS: ANTINUCLEAR ANTIBODIES DIRECT Negative (Negative)
== END ==
PROVIDERS: PCP Nurse Practitioner Family; Referring Provider Nurse Practitioner Family; Visit Provider Nurse Practitioner Family
DX: L40.9 Psoriasis, unspecified (principal)
CPT/HCPCS: 36415; 86038; 86431

== ENCOUNTER 2020-07-04 12:25 | Emergency (ER) | payer MEDICAID, SELFPAY ==
[2020-07-04 12:26] VITALS: BP 148/101; PULSE 93; RESP 17; TEMP 36.2; O2SAT 100; BMI 37.8
--- NOTE | 2020-07-04 12:46 | ED.VIS.GEN ---
History of Present Illness Chief Complaint: Female C/O Informant: Patient Narrative: 44-year-old female presenting for the evaluation of vaginal discharge. The patient states that symptoms began 2 months ago when she was on the antibiotic for a sinus infection. She tells me she started with a very slight amount of discharge that has progressively gotten worse. She is a diabetic. She describes as thick white and yucky. She states that she has tried not to itch. She denies any fevers. She also notes back pain but the patient also has a very long history of chronic back pain. Patient denies being sexually active. - Past Medical History (1) Acid reflux Status: Chronic (2) Depression Status: Chronic (3) Diabetes Status: Chronic (4) HTN (hypertension) Status: Chronic Past Medical History - Allergies and Home Meds Allergies/Adverse Reactions: Allergies No Known Allergies Allergy (Verified 07/04/20 12:26) Primary Care Physician: Catalina Samuels MACHINING MANAGER, MACHINING MANAGER-C [Primary Care Provider] - 1 Week if not improving Surgical History: noncontributory Smoking Status: Unknown if ever smoked Drugs: None - Family History Paternal Family History: Family History (Last Updated 06/06/18 @ 15:32 by Morenita Martinez) Mother Arthritis Diabetes Father Diabetes Hypertension High cholesterol Family History: Reports: Heart Disease Review of Systems General: Denies: Chills, Fever, Sweats Eyes: Denies: Visual changes - bilaterally, Diplopia ENT: Denies: Rhinorrhea, Sore throat Cardiovascular: Denies: Chest pain, Palpitations Respiratory: Denies: Dyspnea, Cough, Dyspnea on exertion Gastrointestinal: Denies: Abdominal pain, Nausea, Vomiting, Diarrhea, Melena, Hematochezia Genitourinary: Reports: - - Vaginal discharge. Denies: Dysuria, Hematuria, Frequency Musculoskeletal: Reports: Back pain. Denies: Extremity Pain Skin: Denies: Rash, Wounds Neurological: Denies: Headache, Weakness, Numbness Physical Exam Vital Signs/Narrative: Vital Signs Temp Pulse Resp BP Pulse Ox 07/04/20 12:26 97.1 F L 93 17 148/101 H 100 Inital Vital Signs reviewed: Yes General: Well nourished, Well developed, Obese, No Acute Distress Head: Normocephalic, Atraumatic Eyes: Perrl, EOMI ENT: Moist mucous membranes, No rhinorrhea Neck: Supple, Nontender Cardiovascular: Regular rate, Regular rhythm, No murmurs Respiratory: No distress, CTA bilaterally, Chest nontender Abdomen: Soft, Nontender, Nondistended, Normal bowel sounds : - - There is a copious amount of a white to light yellow vaginal discharge. Back: - - Diffusely tender to palpation Extremities: Nontender, No edema Skin: Normal color, No rash Neurological: Alert, Oriented x3, Cranial nerves II-XII grossly intact, Normal Strength, Normal Sensation Psychological: Normal affect, Normal Mood Diagnostic/Tx/Re-eval - Medical Decision Making Will be several hours before the testing for BV/trichomonas is back. I think it is reasonable to write her a Diflucan and place her on metronidazole. I will refer her to her primary care doctor if she is not improving. I encouraged her to establish care with an CENTRAL OFFICE FRAME WIRER if her doctor does not do routine female well woman exams. ED Disposition - Plan for ED Patient: Disposition: Home or Assisted Living Diagnosis: Vaginal discharge Instructions: Vaginal Infection: Bacterial Vaginosis, Vaginal Infection: Trichomoniasis Prescriptions: Fluconazole [Diflucan] 150 mg PO X1 #1 tab Prescription Printed metroNIDAZOLE [Flagyl] 500 mg PO Q12H #14 tab Prescription Printed Referrals: Catalina Samuels NP, MACHINING MANAGER-C [Primary Care Provider] - 1 Week if not improving Alissa Paris MD [STAFF PHYSICIAN] - (Call to arrange [facility] [employer] [facility] follow-up if you wish to see a diversional therapist's assistant.)
[2020-07-04 13:10] LABS: Color, Urine Yellow (Yellow); Glucose, Dipstick 1000 mg/dl (Normal); Ketone-Dipstick Negative (Negative); Leukocyte Esterase-Dipstick 500 /ul (Negative); Nitrite-Dipstick Negative (Negative); Occult Blood-Urine 10 /ul (Negative); Protein-Dipstick Negative (Negative); Specific Gravity, Urine 1.015 (1.002-1.030); Urine Bilirubin Dipstick Negative (Negative); Urine Clarity Sl. Cloudy (Clear); Urine Urobilinogen Normal (Normal)
[2020-07-04 13:11] LABS: Internal QC Validated? YES +Cl - CLEAR BKGD; Pregnancy, Urine Negative Negative
[2020-07-04 13:17] LABS: Bacteria RARE /hpf (None Seen); Mucous, Urine RARE /hpf (<or=2+); Red Blood Cells-Urine 0-5 SEEN /hpf (0-5); Squamous Epithelial Cells - UA 0-5 SEEN /hpf (5-10); White Blood Cells 5-10 SEEN /hpf (0-5)
[2020-07-04 13:18] LABS: Trichomonas 0-5 SEEN /hpf (None Seen)
[2020-07-04 14:18] LABS: Probe Check PASS; Trichomonas Vag DNA by PCR POSITIVE (Negative)
== END 2020-07-04 13:32 | disposition home or self-care (01) ==
PROVIDERS: Emergency Provider Emergency Medicine; PCP Nurse Practitioner Family
DX: A59.01 Trichomonal vulvovaginitis (principal); E11.9 Type 2 diabetes mellitus without complications; I10 Essential (primary) hypertension; M54.9 Dorsalgia, unspecified; G89.29 Other chronic pain; K21.9 Gastro-esophageal reflux disease without esophagitis; F32.9 Major depressive disorder, single episode, unspecified; E66.9 Obesity, unspecified; Z79.4 Long term (current) use of insulin; Z79.899 Other long term (current) drug therapy
CPT/HCPCS: 81001; 81025; 87661; 99282

== ENCOUNTER → 2020-07-08 15:18 | Outpatient (CLI) | payer MEDICAID, SELFPAY ==
[2020-07-04 12:26] VITALS: BMI 37.8
--- NOTE | 2020-07-08 15:25 | RAD_ITS ---
STUDY: X-RAY - SACRUM/COCCYX REASON FOR EXAM: Female, 44 years old. Chronic back pain TECHNIQUE: 3 view(s) of the sacrum and coccyx were obtained. COMPARISON: CT of the abdomen and pelvis dated 06/12/18 FINDINGS: Normal bilateral sacroiliac joints. Normal visualized sacral ala and fused sacral bodies. Normal sacrococcygeal junction with a normal angulation. The presacral soft tissue structures are unremarkable. RAD/Sacrum-Coccyx min 2 Views IMPRESSION: Normal x-rays of the sacrum and coccyx. Electronically Signed: Aamir Joseph MD at 15:51 EST Tel , Service support ,
--- NOTE | 2020-07-08 15:25 | RAD_ITS ---
STUDY: X-RAY - LUMBAR SPINE REASON FOR EXAM: Female, 44 years old. Chronic back pain TECHNIQUE: 5 view(s) of the lumbar spine were obtained. COMPARISON: CT of the abdomen and pelvis dated 06/12/18 FINDINGS: There is no evidence of fracture or dislocation in the lumbar spine. The vertebral body heights are well-maintained. There is stable mild multilevel degenerative changes. Again noted are atherosclerotic calcifications in the aorta. RAD/L/S Spine Min 4 Views IMPRESSION: No fracture or dislocation in the lumbar spine. Stable mild multilevel degenerative change. Electronically Signed: Aamir Joseph MD at 15:51 EST Tel , Service support ,
== END ==
PROVIDERS: PCP Nurse Practitioner Family; Referring Provider Nurse Practitioner Family; Visit Provider Nurse Practitioner Family
DX: M53.3 Sacrococcygeal disorders, not elsewhere classified (principal)
CPT/HCPCS: 72110; 72220

== ENCOUNTER 2021-04-24 20:09 | Emergency (ER) | payer MEDICARE, MEDICAID, SELFPAY ==
[2021-04-24 20:10] VITALS: BP 133/87; PULSE 95; RESP 17; TEMP 35.6; O2SAT 100; BMI 31.5
--- NOTE | 2021-04-24 20:27 | EDS_ITS ---
HPI History of Present Illness Chief Complaint: General Illness Narrative Narrative: 45-year-old female presenting with 3 days of not feeling well. States her daughter recently tested positive for Covid. She complains of body aches, cough, abdominal pain, diarrhea. She has nausea with no vomiting. She denies chest pain or shortness of breath. She is not vaccinated for Covid. Prior similar symptoms: No Recent Illness/Hospitalization: No PFSH PFS Medical History (Updated 04/24/21 @ 21:[address] Carmina Bragg MD) Abdominal pain Acid reflux Depression Diabetes Femur fracture, right Fracture of lesser trochanter of femur HTN (hypertension) Nausea Home Medications metformin 1,000 mg PO BID 02/16/14 [History Last Taken 02/13/18] gabapentin 800 mg PO 4X/DAY 04/22/17 [History Last Taken 02/13/18 21:00] cyanocobalamin (vitamin B-12) 1,000 mcg PO DAILY 06/02/18 [History Last Taken Unknown] Ranitidine [Zantac] 150 mg PO BID 08/22/18 [History Last Taken Unknown] insulin glargine U-300 conc [Toujeo Solostar] 60 unit SQ DAILY 08/22/18 [History Last Taken Unknown] prednisone 10 mg PO UD #33 tab 11/02/18 [Rx Last Taken Unknown] hydroxyzine pamoate 50 mg PO BID PRN PRN #20 cap 04/09/19 [Rx Last Taken Unknown] sucralfate 1 gm PO 4X/DAY #20 tab 04/09/19 [Rx Last Taken Unknown] cyclobenzaprine 10 mg PO TID PRN #15 tab 07/29/19 [Rx Last Taken Unknown] lidocaine 1 patch TOPICAL DAILY #20 patch 07/29/19 [Rx Last Taken Unknown] gabapentin 300 mg PO TID #20 cap 03/25/20 [Rx Last Taken Unknown] fluconazole 150 mg PO X1 #1 tab 07/04/20 [Rx Last Taken Unknown] metronidazole 500 mg PO Q12H #14 tab 07/04/20 [Rx Last Taken Unknown] ondansetron 4 mg PO Q8H PRN PRN 7 Days #10 tab 04/24/21 [Rx Last Taken Unknown] Allergy/AdvReac Type Severity Reaction Status Date / Time No Known Allergies Allergy Verified 04/24/21 20:10 Family History (Updated 06/06/18 @ 15:32 by Morenita Martinez) Mother Arthritis Diabetes Father Diabetes Hypertension High cholesterol Social History (Updated 06/07/18 @ 08:[address] Nieves Art MD) Smoking Status: Current every day smoker tobacco type: cigarettes alcohol intake: never substance use type: does not use caffeine: No frequency: does not exercise ROS ROS ED Constitutional Constitutional ED: Reports chills; Denies fever(s) ENT ENT ED: Reports rhinorrhea and sore throat Cardiovascular Cardiovascular: Denies chest pain or palpitations Respiratory/Chest Respiratory/Chest: Reports cough; Denies dyspnea Gastrointestinal Gastrointestinal: Reports abdominal pain, diarrhea and nausea; Denies vomiting Genitourinary Genitourinary ED: Denies dysuria Musculoskeletal Musculoskeletal: Reports myalgias Integumentary Denies rash Neurologic Neurologic: Denies headache(s) Psychiatric Psychiatric: Denies suicidal thoughts EXAM Physical Exam Const Vital Signs: 04/24/21 20:10 04/24/21 20:55 Temperature 96.0 F L Temperature Source Temporal Pulse Rate 95 Respiratory Rate 17 Respiratory Effort Normal Respiratory Pattern Normal Blood Pressure 133/87 H Blood Pressure Mean 102 Pulse Ox 100 Oxygen Delivery Method Room Air Positive well nourished and well developed General Appearance ED: well developed HEENT Reports normocephalic and head/scalp atraumatic Eyes PERRL and EOMs intact bilaterally Neck supple General: Negative for tenderness Chest Wall inspection of chest normal Resp normal respiratory effort and clear to auscultation bilaterally Cardio regular rate and regular rhythm GI non-distended Palpation: soft and tender epigastric; Negative for guarding or rebound tenderness present no CVA tenderness Extremity normal to inspection Neuro oriented x3 Sensorium / Orientation: alert Psych mental status grossly normal MDM MDM MDM Narrative Medical decision making narrative: Patient declined IV fluids or medication. She was given Zofran p.o. She states she is only here for a Covid test. Covid test was ordered and is positive. She is feeling improved after Zofran. She is given prescription for Zofran. Pulse ox is 100% on room air. She is also referred for outpatient monoclonal antibody treatment. Advised to monitor her pulse ox at home. Advised to follow-up with primary care physician. Advised return to the ED for worsening complaints. Lab Data Attestation: I reviewed the patient's lab results. Discharge Plan Triage Chief Complaint: General Illness ED Provider: Carmina Bragg Dx/Rx/DC Orders Clinical Impression: COVID-19 Instructions: Coronavirus Disease 2019 (COVID-19): Overview Prescriptions: New ondansetron 4 mg tablet,disintegrating 4 mg PO Q8H PRN PRN (Reason: Nausea) 7 Days Qty: 10 RF: 0 No Action metformin 500 MG tablet 1,000 mg PO BID RF: 0 gabapentin 800 MG tablet 800 mg PO 4X/DAY RF: 0 cyanocobalamin (vitamin B-12) 1,000 MCG capsule 1,000 mcg PO DAILY RF: 0 insulin glargine U-300 conc [Toujeo SoloStar U-300 Insulin] 300 UNIT/ML insulin pen 60 unit SQ DAILY RF: 0 Ranitidine [Zantac] 150 MG tablet 150 mg PO BID RF: 0 prednisone 10 MG tablet 10 mg PO UD Qty: 33 RF: 0 sucralfate 1 GM tablet 1 gm PO 4X/DAY Qty: 20 RF: 0 hydroxyzine pamoate 50 MG capsule 50 mg PO BID PRN PRN (Reason: Anxiety) Qty: 20 RF: 0 cyclobenzaprine 10 MG tablet 10 mg PO TID PRN (Reason: Muscle Spasm) Qty: 15 RF: 0 lidocaine 1 PATCH patch 1 patch topical DAILY Qty: 20 RF: 0 gabapentin 300 MG capsule 300 mg PO TID Qty: 20 RF: 0 fluconazole 150 MG tablet 150 mg PO X1 Qty: 1 RF: 0 metronidazole 500 MG tablet 500 mg PO Q12H Qty: 14 RF: 0 Other Ambulatory Orders: COVID Outpatient Monoclonal Antibody Referral (Routine) Timeframe: 1 Day Facility: [facility] - Location: [facility] Ordered By: Dr. Carmina Bragg Primary Care Provider: Catalina Samuels NP Referrals: Catalina Samuels NP, MAINTENANCE DEPARTMENT MANAGER-C [Primary Care Provider] - Disposition Disposition: Home, Self Care
[2021-04-24] MEDS: Ondansetron ODT 4 MG Tablet 8 MG PO (20:54)
== END 2021-04-24 22:04 | disposition home or self-care (01) ==
PROVIDERS: Emergency Provider Emergency Medicine; PCP Nurse Practitioner Family
DX: U07.1 COVID-19 (principal); R19.7 Diarrhea, unspecified; R10.9 Unspecified abdominal pain; E11.9 Type 2 diabetes mellitus without complications; I10 Essential (primary) hypertension; K21.9 Gastro-esophageal reflux disease without esophagitis; F32.A Depression, unspecified; F17.210 Nicotine dependence, cigarettes, uncomplicated; Z79.4 Long term (current) use of insulin; Z79.899 Other long term (current) drug therapy
CPT/HCPCS: 87426; 99283

== ENCOUNTER 2021-04-26 12:19 | Outpatient (CLI) | payer MEDICARE, MEDICAID, SELFPAY ==
[2021-04-26 12:30] VITALS: BP 122/78; PULSE 98; RESP 16; TEMP 37; O2SAT 97; BMI 31.8
[2021-04-26] MEDS: 0.9% Saline Lock 10 ML Syringe IV (13:21)
[2021-04-26 13:49] VITALS: BP 111/66; PULSE 86; RESP 16; TEMP 36.6; O2SAT 97
[2021-04-26 15:00] VITALS: BP 100/65; PULSE 88; RESP 16; TEMP 36.8; O2SAT 96
== END 2021-04-26 15:00 | disposition home or self-care (01) ==
LOC: MS3OUT 12:19 → MS3 12:20
PROVIDERS: PCP Nurse Practitioner Family; Referring Provider Nurse Practitioner Adult Health; Visit Provider Nurse Practitioner Adult Health
DX: Z23 Encounter for immunization (principal); U07.1 COVID-19; E11.9 Type 2 diabetes mellitus without complications
CPT/HCPCS: J7050; M0245; Q0245; A4216

== ENCOUNTER 2021-08-27 22:39 | Inpatient (IN) | payer MEDICARE, MEDICAID, SELFPAY ==
[2021-08-27 22:40] VITALS: BP 150/89; PULSE 61; RESP 24; TEMP 36.9; O2SAT 94; BMI 31.8
--- NOTE | 2021-08-27 22:58 | EKG12_ITS ---
Test Reason : INGESTION Blood Pressure : / mmHG Vent. Rate : 079 BPM Atrial Rate : 079 BPM P-R Int : 136 ms QRS Dur : 082 ms QT Int : 406 ms P-R-T Axes : 044 043 054 degrees QTc Int : 465 ms Normal sinus rhythm Normal ECG Confirmed by MG GRANDE, MIHIR ([id number]), newspaper editor SEYMOUR GALVEZ ([id number]) on 08/31/2021 11:11:02 AM Referred By: Confirmed By:MIHIR HOLLIDAY MD
--- NOTE | 2021-08-27 23:12 | EX.ED.DYSGE1 ---
HPI History of Present Illness Chief Complaint: Overdose Narrative Narrative: Patient is a 46-year-old female who was brought in by EMS after police were called to her house for a suicide attempt. The patient and police report that she was involved in a domestic disturbance with her fianc? whom she lives with. Reportedly because of this the fianc? broke up with her and left the residence. The patient became very distraught over this and at approximately 9 PM marcelino called her mother stating she just took a bunch of her gabapentin and baclofen in order to hurt her self. Secondary to this the mother called the patient's sister who then called 911 and police went to her home. Please state when they arrived patient initially was talking in full sentences but then began to have depressed mental status and slurring of speech. Once they entered the premises they found empty pill bottles present as well as a serrated knife on hand. They also report that they found multiple pictures on her nightstand in bed acting as a shrine consistent with her suicidal ideation. Because of her worsening mental status suicidal ideation and reported suicide attempt by overdose she was brought to the hospital for evaluation [facility] Medical History Abdominal pain Acid reflux Depression Diabetes Femur fracture, right Fracture of lesser trochanter of femur HTN (hypertension) Nausea Home Medications metformin 1,000 mg PO BID 02/16/14 [History Last Taken 02/13/18] gabapentin 800 mg PO 4X/DAY 04/22/17 [History Last Taken 02/13/18 21:00] cyanocobalamin (vitamin B-12) 1,000 mcg PO DAILY 06/02/18 [History Last Taken Unknown] Ranitidine [Zantac] 150 mg PO BID 08/22/18 [History Last Taken Unknown] insulin glargine U-300 conc [Tougurwinder Solostgenoveva] 60 unit SQ DAILY 08/22/18 [History Last Taken Unknown] hydroxyzine pamoate 50 mg PO BID PRN PRN #20 cap 04/09/19 [Rx Last Taken Unknown] sucralfate 1 gm PO 4X/DAY #20 tab 04/09/19 [Rx Last Taken Unknown] cyclobenzaprine 10 mg PO TID PRN #15 tab 07/29/19 [Rx Last Taken Unknown] Allergy/AdvReac Type Severity Reaction Status Date / Time No Known Allergies Allergy Verified 04/24/21 20:10 Family History (Updated 06/06/18 @ 15:32 by Morenita Martinez) Mother Arthritis Diabetes Father Diabetes Hypertension High cholesterol Social History (Updated 06/07/18 @ 08:[address] Nieves Art MD) Smoking Status: Current every day smoker tobacco type: cigarettes alcohol intake: never substance use type: does not use caffeine: No frequency: does not exercise ROS ROS ED ROS Narrative Patient is obtunded but awakes to voice and does answer questions Constitutional Constitutional ED: Denies chills or fever(s) ENT ENT ED: Denies sore throat Cardiovascular Cardiovascular: Denies chest pain Respiratory/Chest Respiratory/Chest: Denies cough or dyspnea Gastrointestinal Gastrointestinal: Denies abdominal pain, diarrhea, nausea or vomiting Genitourinary Genitourinary ED: Denies dysuria Musculoskeletal Musculoskeletal: Denies myalgias Integumentary Denies rash Neurologic Neurologic: Denies headache(s) Psychiatric Psychiatric: Reports depression, suicidal ideation and suicidal thoughts Hematologic/Lymphatic Hematologic/Lymphatic: Denies easy bleeding or easy bruising EXAM Physical Exam Const Vital Signs: 08/27/21 22:40 08/27/21 23:55 08/28/21 00:18 Temperature 98.5 F Temperature Source Temporal Pulse Rate 61 85 81 Respiratory Rate 24 H 15 13 Blood Pressure 150/89 H 132/77 H Blood Pressure Mean 109 95 Pulse Ox 94 97 98 Oxygen Delivery Method Room Air Room Air Nasal Cannula 08/28/21 01:33 Temperature Temperature Source Pulse Rate Respiratory Rate 16 Blood Pressure 152/99 H Blood Pressure Mean 116 Pulse Ox 99 Oxygen Delivery Method Room Air Positive well nourished, well developed and obese General Appearance ED: well developed Nutritional Appearance: obese HEENT Reports moist mucous membranes Eyes PERRL and EOMs intact bilaterally Neck supple Chest Wall palpation of chest normal Resp normal respiratory effort and clear to auscultation bilaterally Cardio regular rate and regular rhythm Rate: other Other Details: Radial pulses are +2-4 bilaterally are equal and symmetric GI normal to inspection, nondistended, normoactive bowel sounds, non-tender, non-distended and no masses GI Narrative: No pulsatile mass Auscultation: normoactive bowel sounds Palpation: soft Extremity normal to inspection Neuro Neuro Narrative: Patient is obtunded consistent with reported overdose but will awake to voice and minor stimulation and there is no focal neurologic deficit Psych Psych Narrative: Positive suicidal ideation Mood & Affect: depressed and tearful Skin no rashes or lesions noted Skin Narrative: No obvious signs of trauma to suggest self-harm such as self cutting MDM MDM MDM Narrative Medical decision making narrative: Patient presented to the ER obtunded consistent with her overdose of gabapentin and baclofen but would awake to voice and minor stimulation and was protecting her airway. Therefore I felt no need for intubation at this time. Patient also had no signs of head injury and even though police reported to having a knife on premises there was only a small abrasion to her right hand with no other signs of trauma. A basic screening exam/work-up was performed because of the overdose and reveals the presence of methamphetamines in her system but alcohol aspirin and Tylenol are all within normal range. The case was discussed with poison control who states patient will most likely need to be watched for 24 hours due to the sedative effects of the baclofen and gabapentin ingestion. At this time the patient has been placed on 2 L nasal cannula to help with mild hypoxia from her depressed mental status but she is still protecting her airway and other vitals remained stable. Therefore at this time based on the persistent mental depression patient will be kept in the ICU to monitor her closely to ensure there is no need for intubation and once medically cleared from the standpoint can then be transitioned to a psychiatric service because of her intentional overdose Lab Data Attestation: I reviewed the patient's lab results. Labs: Laboratory Results - last 24 hr 08/27/21 08/27/21 08/27/21 23:03 23:03 23:03 WBC 12.0 H RBC 4.60 Hgb 13.7 Hct 41.1 MCV 89.3 MCH 29.8 MCHC 33.3 RDW Std Deviation 46.6 H RDW Coeff of Yenifer 14.6 Plt Count 528 H MPV 8.7 Immature Gran % (Auto) 1.300 H Neut % (Auto) 54.6 Lymph % (Auto) 29.0 [place] % (Auto) 9.4 Eos % (Auto) 4.9 Baso % (Auto) 0.8 Absolute Neuts (auto) 6.5 Absolute Lymphs (auto) 3.47 Nucleated RBC % 0 Sodium 141 Potassium 3.7 Chloride 108 H Carbon Dioxide 29.0 Anion Gap 4 L BUN 9 Creatinine 0.79 Estim Creat Clear Calc 72.82 Est GFR (MDRD) Af Amer 101 Est GFR (MDRD) Non-Af 83 BUN/Creatinine Ratio 11.4 Glucose 152 H Calcium 9.1 Total Creatine Kinase Urine Color Urine Clarity Urine pH Ur Specific [place] Urine Protein Urine Glucose (UA) Urine Ketones Urine Occult Blood Urine Nitrite Urine Bilirubin Urine Urobilinogen Ur Leukocyte Esterase Urine RBC Urine WBC Ur Squamous Epith Cells Urine Bacteria Urine Mucus Urine Test Salicylates 2.9 Urine Opiates Screen Urine Methadone Screen Acetaminophen < 2.0 L Ur Barbiturates Screen Ur Phencyclidine Scrn Ur Amphetamines Screen MDMA (Ecstasy) Screen U Benzodiazepines Scrn Urine Cocaine Screen U Cannabinoids Screen Ur Drug Screen Comment Ethyl Alcohol < 3.0 08/27/21 08/27/21 08/27/21 23:03 23:09 23:09 WBC RBC Hgb Hct MCV MCH MCHC RDW Std Deviation RDW Coeff of Yenifer Plt Count MPV Immature Gran % (Auto) Neut % (Auto) Lymph % (Auto) [place] % (Auto) Eos % (Auto) Baso % (Auto) Absolute Neuts (auto) Absolute Lymphs (auto) Nucleated RBC % Sodium Potassium Chloride Carbon Dioxide Anion Gap BUN Creatinine Estim Creat Clear Calc Est GFR (MDRD) Af Amer Est GFR (MDRD) Non-Af BUN/Creatinine Ratio Glucose Calcium Total Creatine Kinase 131 Urine Color Yellow Urine Clarity Clear Urine pH 6.5 Ur Specific [place] 1.005 Urine Protein Negative Urine Glucose (UA) Normal Urine Ketones Negative Urine Occult Blood Negative Urine Nitrite Negative Urine Bilirubin Negative Urine Urobilinogen Normal Ur Leukocyte Esterase 100 H Urine RBC 0 SEEN Urine WBC 0-5 SEEN Ur Squamous Epith Cells 0 SEEN Urine Bacteria 0 SEEN Urine Mucus 0 SEEN Urine Test Negative Salicylates Urine Opiates Screen NEGATIVE Urine Methadone Screen NEGATIVE Acetaminophen Ur Barbiturates Screen NEGATIVE Ur Phencyclidine Scrn NEGATIVE Ur Amphetamines Screen POSITIVE H MDMA (Ecstasy) Screen NEGATIVE U Benzodiazepines Scrn NEGATIVE Urine Cocaine Screen NEGATIVE U Cannabinoids Screen NEGATIVE Ur Drug Screen Comment Ethyl Alcohol Discharge Plan Triage Chief Complaint: Overdose ED Provider: Ulices Hyde Dx/Rx/DC Orders Clinical Impression: Intentional overdose, Suicide attempt, Depression with suicidal ideation Prescriptions: No Action metformin 500 MG tablet 1,000 mg PO BID RF: 0 gabapentin 800 MG tablet 800 mg PO 4X/DAY RF: 0 cyanocobalamin (vitamin B-12) 1,000 MCG capsule 1,000 mcg PO DAILY RF: 0 Toujeo SoloStar U-300 Insulin 300 UNIT/ML insulin pen 60 unit SQ DAILY RF: 0 Ranitidine [Zantac] 150 MG tablet 150 mg PO BID RF: 0 sucralfate 1 GM tablet 1 gm PO 4X/DAY Qty: 20 RF: 0 hydroxyzine pamoate 50 MG capsule 50 mg PO BID PRN PRN (Reason: Anxiety) Qty: 20 RF: 0 cyclobenzaprine 10 MG tablet 10 mg PO TID PRN (Reason: Muscle Spasm) Qty: 15 RF: 0 Primary Care Provider: Catalina Samuels NP Referrals: Catalina Samuels NP, PUMP TECHNICIAN-C [Primary Care Provider] - Disposition Disposition: Acute Care Hospital [facility]
[2021-08-27 23:23] LABS: Bacteria 0 SEEN /hpf (None Seen); Mucous, Urine 0 SEEN /hpf (<or=2+); Red Blood Cells-Urine 0 SEEN /hpf (0-5); Squamous Epithelial Cells - UA 0 SEEN /hpf (5-10)
[2021-08-27 23:26] LABS: Anion Gap 4 (5-15); BUN 9 mg/dL (7-18); BUN/Creat Ratio 11.4 RATIO (10-20); Calcium,Total 9.1 mg/dL (8.5-10.1); Chloride 108 mmol/L (98-107); Creatinine, Serum 0.79 mg/dL (0.55-1.02); EST Glomerular Filtration Rate 83 mL/min (>60); Est Glom Filt Rate - Afr Amer 101 mL/min (>60); Estimated Creatinine Clearance 72.82 ml/min; Glucose 152 mg/dL (74-106); Potassium 3.7 mmol/L (3.5-5.1); Sodium Level 141 mmol/L (136-145)
[2021-08-27 23:27] LABS: Color, Urine Yellow (Yellow); Glucose, Dipstick Normal (Normal); Ketone-Dipstick Negative (Negative); Leukocyte Esterase-Dipstick 100 /ul (Negative); Nitrite-Dipstick Negative (Negative); Occult Blood-Urine Negative /ul (Negative); Protein-Dipstick Negative (Negative); Specific Gravity, Urine 1.005 (1.002-1.030); Urine Bilirubin Dipstick Negative (Negative); Urine Clarity Clear (Clear); Urine Urobilinogen Normal (Normal); Urine pH 6.5 (5.0 - 8.0)
[2021-08-27 23:33] LABS: Internal QC Validated? YES +Cl - CLEAR BKGD; Pregnancy, Urine Negative Negative
[2021-08-27 23:34] LABS: White Blood Cells 0-5 SEEN /hpf (0-5)
[2021-08-27 23:35] LABS: Acetaminophen (Tylenol) Level < 2.0 ug/mL (10.0-30.0); Alcohol, Blood (Medical)-Serum < 3.0 mg/dL; Salicylate 2.9 mg/dL (2.8-20.0)
[2021-08-27 23:36] LABS: Absolute Lymphocyte Count 3.47 X10^3/uL (0.83-4.51); Absolute Neutrophil Count 6.5 X10^3/uL (2.0-7.7); Basophil% 0.8 % (0-1); Eosinophil# 0.59 X10^3/uL; Eosinophils% 4.9 % (0-5); Hematocrit 41.1 % (37-47); Hemoglobin 13.7 g/dL (12.0-15.0); Lymphocyte # 3.47 X10^3/ul (0.83-4.51); Mean Corp Hgb Conc 33.3 g/dL (32-36); Mean Corpuscular Hgb 29.8 pg (27.0-32.0); Mean Corpuscular Volume 89.3 fL (81-99); Mean Platelet Vol. 8.7 fl (6.2-12.0); Monocyte# 1.12 X10^3/uL; Monocyte% 9.4 % (0-10); NRBC Flagged by Analyzer 0 % (0-5); Neutrophil # 6.54 X10^3/uL (2.7-7.7); Neutrophil % 54.6 % (47-70); Platelet Count 528 K/mm3 (150-450); RBC Distribution Width CV 14.6 % (11.6-14.6); RBC Distribution Width SD 46.6 fl (35.1-43.9)
[2021-08-27 23:37] LABS: Amphetamine Urine VISTA POSITIVE (<1000 ng/mL); Barbiturate Urine VISTA NEGATIVE (< 200 ng/mL); Benzodiazepine Urine VISTA NEGATIVE (< 200 ng/mL); Cocaine Urine VISTA NEGATIVE (< 300 ng/mL); Ecstacy Urine VISTA NEGATIVE (< 500 ng/mL); Methadone Urine VISTA NEGATIVE (< 300 ng/mL); PCP Urine VISTA NEGATIVE (< 25 ng/mL); THC Urine VISTA NEGATIVE (< 50 ng/mL); Vista UDS pH Range 6
[2021-08-27 23:55] VITALS: PULSE 85; RESP 15; O2SAT 97
[2021-08-28] VITALS (39 sets, daily range): BP systolic 73–199; BP diastolic 63–107; PULSE 67–100; RESP 10–25; TEMP 36.9–37.6; O2SAT 69–100; BMI 29.6
[2021-08-28] MEDS: 0.9% Normal Saline 1,000 ML 999 ML IV (00:04)
[2021-08-28 00:50] LABS: CPK Total, Creatine Kinase 131 U/L (26-192)
--- NOTE | 2021-08-28 01:49 | HP.PCM.HOS_ITS ---
HPI - General General Date of Admission: 08/28/21 Date of Service: 08/28/21 Chief Complaint: Suicidal drug overdose with gabapentin and baclofen HPI Narrative NIKOLAS SELLERS, is a 46 F with multiple comorbidities as listed below was brought by EMS/Brand Specialist for suicidal attempt. Patient got upset with her fianc? because fianc? broke up with her and left the residence. Then she called her mother at 9 PM but she took gabapentin and baclofen in order to hurt herself. Patient's mom called police and then police went to home. Police found patient was talking initially and then depressed mental status, confused, slurred speech. They found empty pill bottles of gabapentin and baclofen. He also serrated knife nearby with some cut reyes on the right wrist. There was circumstantial evidence of multiple pictures in her bedroom consistent with suicidal ideation. She was given 4 mg of Narcan with limited effectiveness. EMS vitals heart rate 80/min, BP 160/106, respiratory rate 17 and GCS nonodorants 15. In ED, patient was found obtunded with generalized confusion and depressed mental status. she was waking up with the voice with minor stimulation with no focal deficit. But when I saw the patient she has been sleeping for last 2 to 3 hours with foaming around left corner of mouth. EMS and twelve-lead EKG shows normal sinus rhythm. 79 bpm, QRS 82 ms. QTc 465 ms. Patient did not had any fall or evidence of bruise in her head neck or back area. No imaging done in ED. [facility] Medical History Abdominal pain Acid reflux Depression Diabetes Femur fracture, right Fracture of lesser trochanter of femur HTN (hypertension) Nausea Home Medications metformin 1,000 mg PO BID 02/16/14 [History Last Taken 02/13/18] gabapentin 800 mg PO 4X/DAY 04/22/17 [History Last Taken 02/13/18 21:00] cyanocobalamin (vitamin B-12) 1,000 mcg PO DAILY 06/02/18 [History Last Taken Unknown] Ranitidine [Zantac] 150 mg PO BID 08/22/18 [History Last Taken Unknown] insulin glargine U-300 conc [Tougurwinder Solostar] 60 unit SQ DAILY 08/22/18 [History Last Taken Unknown] hydroxyzine pamoate 50 mg PO BID PRN PRN #20 cap 04/09/19 [Rx Last Taken Unknown] sucralfate 1 gm PO 4X/DAY #20 tab 04/09/19 [Rx Last Taken Unknown] cyclobenzaprine 10 mg PO TID PRN #15 tab 07/29/19 [Rx Last Taken Unknown] Allergy/AdvReac Type Severity Reaction Status Date / Time No Known Allergies Allergy Verified 04/24/21 20:10 Family History Mother Arthritis Diabetes Father Diabetes Hypertension High cholesterol Social History Smoking Status: Current every day smoker tobacco type: cigarettes alcohol intake: never substance use type: does not use caffeine: No frequency: does not exercise ROS ROS Narrative 14 ROS unobtainable as patient is somnolent, sleeping. Earlier she was obtunded, confused. Review of Systems ROS Unobtainable: due to encephalopathy, due to mental condition and due to mental status Vital Signs Vital Signs Vital Signs: 08/27/21 22:40 08/27/21 23:55 08/28/21 00:18 Temperature 98.5 F Temperature Source Temporal Pulse Rate 61 85 81 Respiratory Rate 24 H 15 13 Blood Pressure 150/89 H 132/77 H Blood Pressure Mean 109 95 Pulse Ox 94 97 98 Oxygen Delivery Method Room Air Room Air Nasal Cannula 08/28/21 01:33 Temperature Temperature Source Pulse Rate Respiratory Rate 16 Blood Pressure 152/99 H Blood Pressure Mean 116 Pulse Ox 99 Oxygen Delivery Method Room Air Weight Weight: 179 lb 10.828 oz Body Mass Index (BMI) 31.8 Physical Exam Narrative General: Somnolent. Unconscious. HEENT: Atraumatic, pupils bilaterally 3 mm and reactive. Oral: Tiny amount of froth over left corner of mouth. Oral mucosa dry Neck: Supple, No JVD, Negative Carotid Bruits Lungs: Air entry diminished in bilateral lung bases. No crepitation/rhonchi Cardiovascular: Regular rate, Regular Rhythm, Normal S1, Normal S2, No murmurs Abdomen: Bowel Sounds Present, Soft, Non Tender, Non-Distended : No renal angle tenderness. No suprapubic tenderness. Extremities: No edema, Capillary Refill Less than 3 Seconds Skin: No rashes, No breakdown Musculoskeletal: No Tenderness to Palpation of Joints or Extremities Neurological: No focal deficit. No hypotonia or hypertonia. Reflexes 2/4. Complete neuro exam unobtainable. GCS score 8-9 Psych/Mental Status: Somnolent. Overdose. Suicidal attempt Results Lab / Micro Data Result Diagrams: 08/27/21 23:03 08/27/21 23:03 Labs: Laboratory Results - last 24 hr 08/27/21 23:03: Salicylates 2.9, Acetaminophen < 2.0 L, Ethyl Alcohol < 3.0 08/27/21 23:03: WBC 12.0 H, RBC 4.60, Hgb 13.7, Hct 41.1, MCV 89.3, MCH 29.8, MCHC 33.3, RDW Std Deviation 46.6 H, RDW Coeff of Yenifer 14.6, Plt Count 528 H, MPV 8.7, Immature Gran % (Auto) 1.300 H, Neut % (Auto) 54.6, Lymph % (Auto) 29.0, [place] % (Auto) 9.4, Eos % (Auto) 4.9, Baso % (Auto) 0.8, Absolute Neuts (auto) 6.5, Absolute Lymphs (auto) 3.47, Nucleated RBC % 0 08/27/21 23:03: Sodium 141, Potassium 3.7, Chloride 108 H, Carbon Dioxide 29.0, Anion Gap 4 L, BUN 9, Creatinine 0.79, Estim Creat Clear Calc 72.82, Est GFR (MDRD) Af Amer 101, Est GFR (MDRD) Non-Af 83, BUN/Creatinine Ratio 11.4, Glucose 152 H, Calcium 9.1 08/27/21 23:03: Total Creatine Kinase 131 08/27/21 23:09: Urine Opiates Screen NEGATIVE, Urine Methadone Screen NEGATIVE, Ur Barbiturates Screen NEGATIVE, Ur Phencyclidine Scrn NEGATIVE, Ur Amphetamines Screen POSITIVE H, MDMA (Ecstasy) Screen NEGATIVE, U Benzodiazepines Scrn NEGA TIVE, Urine Cocaine Screen NEGATIVE, U Cannabinoids Screen NEGATIVE, Ur Drug Screen Comment 08/27/21 23:09: Urine Color Yellow, Urine Clarity Clear, Urine pH 6.5, Ur Speci fic [place] 1.005, Urine Protein Negative, Urine Glucose (UA) Normal, Urine Ketones Negative, Urine Occult Blood Negative, Urine Nitrite Negative, Urine Bilirubin Negative, Urine Urobilinogen Normal, Ur Leukocyte Esterase 100 H, Urine RBC 0 SEEN, Urine WBC 0-5 SEEN, Ur Squamous Epith Cells 0 SEEN, Urine Bacteria 0 SEEN, Urine Mucus 0 SEEN, Urine Test Negative Micro: Microbiology 08/27/21 23:16 Nasal Secretion SARS-CoV-2 Antigen (Rapid) - Final Assessment & Plan Assessment/Plan (1) Intentional overdose: (2) Suicide attempt: PLAN: 1. Suicidal attempt with intentional overdose of medications, g abapentin and baclofen: Patient depressed with suicidal attempt. Patient is being admitted in ICU. IV fluid normal saline for saline diuresis. Monitor intake and output. Bladder scan every 3 hourly and if urine retention, then Lozano catheterization. U tox positive of amphetamine. Serum alcohol less than 3. Acetaminophen less than 2.0. Opioids negative. Salicylate normal. Urine test negative. UA shows LE 100 but nitrite negative, WBC 0-5 cells. 2. Diabetes mellitus type 2: [facility] mils subcu daily. Hold long-acting insulin. Accu-Chek every 4 hourly while patient is unconscious and cover with sliding scale Humalog insulin. Keep NPO until she is fully awake and maintain her mentation 3. Anxiety and depression: Hold oral medications while patient is unconscious and n.p.o. 4. Hypertension: Hold oral antihypertensive medications. BP is in acceptable limit. IV hydralazine 10 mg as needed for systolic blood pressure more than 180 mmHg. 5. History of GERD, COVID-19 infection status post monoclonal antibody infusion in April 2021 history of right femur fracture: Home medication reconciliation CODE STATUS: Full code unverified Charges/Coding Visit Charges Inpatient E&M: 22664 Init Hosp L3
[2021-08-28 03:31] LABS: Magnesium 2.1 mg/dL (1.6-2.6); Phosphorus 2.6 mg/dL (2.5-4.9)
[2021-08-28] MEDS: 0.9% Normal Saline 1,000 ML 100 ML IV (04:12)
--- NOTE | 2021-08-28 04:25 | NURSING ---
This RN to bedside to assist in airway assessment. Tongue depressor placed broad side and tongu manipulated w/out resistance. Yankeur placed to back of pt's throat and moved, no gag or cough elicited. Pt rolled supine and pt began sonorous breathing and saliva at back of throat was gurgling out. paged and notified of poor airway protection, RN supervisor machine setter and RT notified as well. Room prepared for procedure.
--- NOTE | 2021-08-28 04:32 | CT_ITS ---
STUDY: CT BRAIN WITHOUT CONTRAST REASON FOR EXAM: Female, 46 years old. Unresponsive RADIATION DOSAGE (If Supplied By Facility): CTDIvol = ( 44.99 ) mGy, DLP = ( 812.98 ) mGycm TECHNIQUE: Transaxial CT imaging of the brain was performed without administration of intravenous contrast material. Individualized dose optimization techniques were used for this CT. COMPARISON: CT September 18, 2017 CT head FINDINGS: Normal soft tissue structures. Normal calvarium. The patient is intubated. The endotracheal tube is partially seen. There is calcification of the bilateral cavernous carotid arteries. Normal size ventricles and extra-axial spaces for the patient''s age. Normal white matter tracts of the cerebral hemispheres. There is also low attenuation within the left basal ganglia measuring 3 x 3 mm. Normal brainstem. Normal cerebellum. There is no intracranial hemorrhage. There are no findings of an acute ischemic infarction. There is minimal fluid in the right maxillary sinus. There is a left side maxillary mucosa retention cyst. There is fluid appearance of the nasopharyngeal soft tissues likely associated with intubation. CT/Brain/Head without Contrast IMPRESSION: No visualized acute hemorrhage infarct or edema. Left side 3 mm low attenuation within the basal ganglia compatible with prior ischemic change. Electronically Signed: Janki Aguilar MD at 5:42 EDT Reading Location ID and State: [facility] / [place] Tel , Service support ,
--- NOTE | 2021-08-28 04:33 | NURSING ---
Dr Parker at bedside, intubating patient with glidescope. Pt wakes with attempted intubation. hr 96, 168/106 20mg etomidate ivp with 0.9nacl flush 2 mg ivp versed given with 0.9NaCl flush
--- NOTE | 2021-08-28 04:37 | NURSING ---
Addendum entered by Juanpablo Monreal RN 08/28/21 04:51: Actual measurement is 24 mid cm at the lip Original Note: Dr Parker attempting intubation, #7 ett, 22cm at right lip, positive color change, breath sounds all keller. HR 99, bagged at 16 times per minute, 100% spo2 being bagged.
--- NOTE | 2021-08-28 04:48 | PCM.OP.PRO ---
Assessment & Plan Assessment/Plan (1) Intentional overdose: QUALIFIERS: Encounter type: initial encounter Qualified Code(s): T50.902A - Poisoning by unspecified drugs, medicaments and biological substances, intentional self-harm, initial encounter (2) Suicide attempt: (3) Airway compromise: Procedure Report Date of Procedure: 08/28/21 Diagnosis Compromised airway due to unconscious, unresponsiveness from suicidal, intentional overdose Patient was not responding to verbal, painful stimuli. GCS 3. Patient maintaining oxygenation 99% on room air. Absent gag reflex. Blood pressure high As per nursing staff, she did oral suction but no gag reflex Initially I thought that she will not require sedative therefore gleidoscope was attempted without sedative but she started waking up with a strong gag reflex. Patient started moving. There are also clear secretions mainly saliva found near the vallecula, pyriform sinus and epiglottis region. After that, etomidate 20 mg IV and Versed 2 mg IV given. Deep oropharyngeal suctioning done. Under gleidoscope vision, vallecula, epiglottis and vocal cords visualized and 7 mm ET tube passed under vision. ET tube was secured. Capnography changed color from purple to yellow. Air entry bilateral equal. Patient has a spontaneous respiration. Started on IV propofol infusion to maintain sedation. Chest x-ray ordered. CT head without contrast also ordered as patient spun deeply unconscious and was not done in the ED Portable chest x-ray and KUB done. ET tube about 2 cm above norma at sternal angle. KUB shows OG tube below diaphragm in the stomach. Official report pending Procedures Hospitalists Procedures: [id number] Insert Emergency Airway
[2021-08-28] MEDS: Etomidate 20 MG/10 ML Vial IV (04:52)
[2021-08-28] MEDS: Midazolam 2 MG/2 ML Syringe IV (04:52)
[2021-08-28] MEDS: Propofol 10MG/Ml 1,000 MG/100 ML Bottle 4.9 MG CONT INF (04:55)
--- NOTE | 2021-08-28 05:00 | RAD_ITS ---
STUDY: X-RAY - ABDOMEN/PELVIS REASON FOR EXAM: Female, 46 years old. og placement TECHNIQUE: Single AP view of the abdomen / pelvis. COMPARISON: Limited abdominal image. FINDINGS: An NG tube is present the tip is in the stomach. There is an image of the upper abdomen and lower chest. RAD/Abdomen Single View (Portable) IMPRESSION: NG tube tip in satisfactory position. Electronically Signed: Janki Aguilar MD at 5:58 EDT ,
--- NOTE | 2021-08-28 05:07 | RAD_ITS ---
STUDY: X-RAY CHEST REASON FOR EXAM: Female, 46 years old. Intubation TECHNIQUE: Single AP portable view x2 of the chest. COMPARISON: April 09, 2019 FINDINGS: There is an endotracheal tube present 2.1 cm above the norma. An NG tube is present the tip is in the stomach. The lungs are clear and expanded. There is no demonstrated pleural abnormality. There is borderline cardiomegaly. Normal mediastinum and jolly. Normal visualized pulmonary arteries. Normal visualized aortic arch and descending thoracic aorta. Normal visualized thoracic spine. Normal visualized ribs, clavicles, and shoulders. There is no demonstrated abnormality of the visualized soft tissue structures of the upper abdomen. RAD/Chest 1 View (Portable) IMPRESSION: Lines as detailed above in satisfactory position. Electronically Signed: Janki Aguilar MD at 5:56 EDT ,
--- NOTE | 2021-08-28 05:17 | NURSING ---
pt to CT with RN, CREDIT PROFESSIONAL and PSN. Pt on monitor, being bagged.
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
[2021-08-28 06:11] LABS: Allen Test Positive; Base Excess 0 mmol/L (-2 to +2); Bicarbonate 24.9 mmol/L (22-26); Blood Gas Specimen Type ART; FI02 30; Mode AC; O2 Delivery Device Adult Vent; PEEP 5; PO2 94 mmHG (75-100); RR 14; SITE R Radial; SO2 97 % (95-99); Total Carbon Dioxide 26 mmol/L; Vt 450; pCO2 40.7 mmHg (35-45)
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
[2021-08-28] MEDS: Enoxaparin 40 MG/0.4 ML Syringe SC (06:34)
[2021-08-28 06:41] LABS: Bedside Glucose 180 mg/dL (74-106)
[2021-08-28 07:24] LABS: ALB/GLOB Ratio 0.8 RATIO (0.9-2.4); AST(SGOT) 18 U/L (15-37); Alanine Aminotransfer ALT/SGPT 23 U/L (13-56); Alkaline Phosphatase 113 U/L (45-117); Anion Gap 5 (5-15); BUN 9 mg/dL (7-18); BUN/Creat Ratio 12.8 RATIO (10-20); Calcium,Total 8.4 mg/dL (8.5-10.1); Chloride 114 mmol/L (98-107); EST Glomerular Filtration Rate 95 mL/min (>60); Est Glom Filt Rate - Afr Amer 115 mL/min (>60); Estimated Creatinine Clearance 85.79 ml/min; Glucose 205 mg/dL (74-106); Potassium 4.1 mmol/L (3.5-5.1); Sodium Level 142 mmol/L (136-145)
[2021-08-28 08:32] LABS: CPK Total, Creatine Kinase 128 U/L (26-192); Triglycerides 251 mg/dL
[2021-08-28] MEDS: Chlorhexidine 15 ML PO ×2 (09:41→22:30)
[2021-08-28] MEDS: Insulin Lispro 100 UNIT/ML INSULN.PEN SC ×3 (11:14→23:56)
[2021-08-28 12:36] LABS: Bedside Glucose 207 mg/dL (74-106)
[2021-08-28] MEDS: Propofol 10MG/Ml 1,000 MG/100 ML Bottle 7.3 MG CONT INF (13:36)
[2021-08-28 17:36] LABS: Bedside Glucose 181 mg/dL (74-106)
[2021-08-28] MEDS: Propofol 10MG/Ml 1,000 MG/100 ML Bottle 12.2 MG CONT INF (21:10)
--- NOTE | 2021-08-28 22:21 | NURSING ---
Pt. broke port on serrano cath and balloon deflated. Replaced with 18Fr temp serrano catheter
--- NOTE | 2021-08-28 22:22 | NURSING ---
Called by poison control and gave update. Recommended to trend salicylate levels
[2021-08-29] VITALS (36 sets, daily range): BP systolic 83–170; BP diastolic 59–93; PULSE 59–108; RESP 13–23; TEMP 37.4–38.3; O2SAT 96–100
[2021-08-29 00:11] LABS: Bedside Glucose 199 mg/dL (74-106)
[2021-08-29 00:17] LABS: Color, Urine Yellow (Yellow); Glucose, Dipstick 100 mg/dl (Normal); Leukocyte Esterase-Dipstick 500 /ul (Negative); Nitrite-Dipstick Negative (Negative); Occult Blood-Urine 50 /ul (Negative); Protein-Dipstick 30 mg/dl (Negative); Specific Gravity, Urine 1.025 (1.002-1.030); Urine Bilirubin Dipstick Negative (Negative); Urine Clarity Turbid (Clear); Urine Urobilinogen Normal (Normal)
[2021-08-29 00:20] LABS: Ketone-Dipstick 150 mg/dl (Negative)
[2021-08-29] MEDS: Propofol 10MG/Ml 1,000 MG/100 ML Bottle 19.6 MG CONT INF (02:04)
[2021-08-29] MEDS: TITRATION PARAMETER CHANGE 1 EACH IV (05:55)
[2021-08-29] MEDS: Insulin Lispro 100 UNIT/ML INSULN.PEN SC ×3 (06:14→17:19)
[2021-08-29] MEDS: Propofol 10MG/Ml 1,000 MG/100 ML Bottle 22 MG CONT INF (06:15)
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
[2021-08-29 06:30] LABS: Bedside Glucose 185 mg/dL (74-106)
--- NOTE | 2021-08-29 06:35 | PN.CC_ITS ---
Assessment & Plan Assessment/Plan (1) Airway compromise: (2) Intentional overdose: QUALIFIERS: Encounter type: initial encounter Qualified Code(s): T50.902A - Poisoning by unspecified drugs, medicaments and biological substances, intentional self-harm, initial encounter PLAN: RECOMMENDATIONS: 1. Continue assist control mode mechanical ventilation. Wean FiO2/PEEP for saturations greater than 90%. 2. Transition to Precedex therapy 3. Continue appropriate DVT and GI prophylaxis. 4. Continue sliding scale insulin coverage. 5. Okay to start tube feeds from my perspective 6. Dosed with antibiotics pending culture IMPRESSIONS: 1. Acute respiratory failure following suicide attempt/intentional overdose The patient was intubated after being transferred to the medical intensive care unit with a significantly decreased GCS and obtundation. Her encephalopathy was likely secondary to the sedative effects from her ingested medications. She was not notably hypoxemic prior to intubation. Post intubation chest x-ray revealed clear lung keller. Patient unable to tolerate spontaneous breathing trial and is not following commands. We will transition to Precedex therapy to see if a trial can be attempted or patient can become more cooperative to allow for safe extubation. 2. Encephalopathy Likely secondary to medication effects in the setting of an intentional overdose. Post intubation ABG is appropriate. Continue current sedation regimen, with plans to attempt a spontaneous awakening trial in the morning on Precedex. CT head revealed no acute changes. Patient more agitated than jerri nolent at this time 3. History of depression/hypertension/diabetes mellitus Complicates care, management, recovery and prognosis. Continue sliding scale insulin coverage for now. 4. Vaginal discharge Patient was significant discharge per nursing. UA may be suggestive of infection. Will treat with azithromycin and ceftriaxone. Cannot exclude a UTI versus STD. History is very limited. TIME: 32 minutes of critical care time, independent of procedures, was spent addressing the patient's acute respiratory failure following suicide attempt, encephalopathy, review of all data and collaboration with the care team. Subjective Subjective Patient did okay overnight. Patient was attempted on spontaneous breathing tri al, but became very agitated. Patient is not following commands at this time. Patient did disrupt her Lozano and there was significant discharge noted. Labs sent overnight. Patient has been hypertensive, but this was associated with agitation. Objective Data Objective Data Vital Signs: Vital Signs Temp Pulse Resp BP Pulse Ox 37.8 C H 93 17 165/80 H 96 08/29/21 05:00 08/29/21 05:00 08/29/21 05:00 08/29/21 05:00 08/29/21 05:00 Oxygen Flow Rate (L/min) 2 Oxygen Delivery Method Mechanical Ventilator Weight: 79 kg Body Mass Index (BMI) 29.6 Intake & Output: Intake and Output for Last 24 Hours 08/27/21 08/28/21 08/29/21 23:59 23:59 23:59 Intake Total 2432.04 / 2459.24 204.63 / 204.63 Output Total 1765 / 1815 595 / 595 Balance 667.04 / 644.24 -390.37 / -390.37 Lab / Micro Data Result Diagrams: 08/27/21 23:03 08/28/21 06:59 Labs: Laboratory Results - last 24 hr 08/28/21 06:37: POC Glucose 180 H 08/28/21 06:59: Sodium 142, Potassium 4.1, Chloride 114 H, Carbon Dioxide 23.0, Anion Gap 5, BUN 9, Creatinine 0.70, Estim Creat Clear Calc 85.79, Est GFR (MDRD) Af Amer 115, Est GFR (MDRD) Non-Af 95, BUN/Creatinine Ratio 12.8, Glucose 205 H, Calcium 8.4 L, Total Bilirubin 0.50, AST 18, ALT 23, Alkaline Phosphatase 113, Total Protein 7.0, Albumin 3.0 L, Globulin 4.0, Albumin/Globulin Ratio 0.8 L 08/28/21 06:59: Total Creatine Kinase 128, Triglycerides 251 H 08/28/21 11:11: POC Glucose 207 H 08/28/21 17:23: POC Glucose 181 H 08/28/21 23:48: POC Glucose 199 H 08/28/21 23:55: Urine Color Yellow, Urine Clarity Turbid, Urine pH 5.0, Ur Specific [place] 1.025, Urine Protein 30 H, Urine Glucose (UA) 100 H, Urine Ketones 150 A*, Urine Occult Blood 50 H, Urine Nitrite Negative, Urine Bilirubin Negative, Urine Urobilinogen Normal, Ur Leukocyte Esterase 500 H 08/29/21 06:11: POC Glucose 185 H Micro: Microbiology 08/28/21 08:11 Sputum, Induced/Lukens Gram Stain - Final 08/27/21 23:16 Nasal Secretion SARS-CoV-2 Antigen (Rapid) - Final Physical Exam Const no apparent distress General Appearance: intubated and patient mechanically ventilated Nutritional Appearance: overweight HEENT normocephalic and head/scalp atraumatic Mouth: endotracheal tube in place and OG tube in place Eyes PERRL and EOMs intact bilaterally Neck supple General: trachea midline Chest inspection of chest normal Resp normal air movement Auscultation: Negative for rales, rhonchi or wheezes Cardio regular rate, regular rhythm, no murmurs, no rub and no gallops GI normal to inspection, nondistended, normoactive bowel sounds Extremity no clubbing, cyanosis or edema Skin no rashes or lesions noted Neuro no focal motor deficits Sensorium / Orientation: sedated on vent Charges/Coding Procedures Hospitalists Procedures: [id number] Critial Care 1st Hr
[2021-08-29] MEDS: Ceftriaxone 1 GM/50 ML BAG IV (06:53)
[2021-08-29 06:57] LABS: Absolute Lymphocyte Count 2.95 X10^3/uL (0.83-4.51); Absolute Neutrophil Count 12.5 X10^3/uL (2.0-7.7); Basophil% 0.6 % (0-1); Eosinophil# 0.35 X10^3/uL; Hematocrit 37.1 % (37-47); Hemoglobin 12.1 g/dL (12.0-15.0); Lymphocyte # 2.95 X10^3/ul (0.83-4.51); Lymphocyte % 17.1 % (19-41); Mean Corp Hgb Conc 32.6 g/dL (32-36); Mean Corpuscular Hgb 29.1 pg (27.0-32.0); Mean Corpuscular Volume 89.2 fL (81-99); Mean Platelet Vol. 8.2 fl (6.2-12.0); Monocyte# 1.35 X10^3/uL; Monocyte% 7.8 % (0-10); NRBC Flagged by Analyzer 0 % (0-5); Neutrophil # 12.47 X10^3/uL (2.7-7.7); Neutrophil % 72.1 % (47-70); Platelet Count 483 K/mm3 (150-450); RBC Distribution Width CV 14.8 % (11.6-14.6); RBC Distribution Width SD 48.3 fl (35.1-43.9); Red Blood Count 4.16 M/mm3 (4.2-5.4); White Blood Count 17.3 K/mm3 (4.4-11.0)
[2021-08-29 07:14] LABS: ALB/GLOB Ratio 0.7 RATIO (0.9-2.4); AST(SGOT) 10 U/L (15-37); Alanine Aminotransfer ALT/SGPT 21 U/L (13-56); Alkaline Phosphatase 119 U/L (45-117); Anion Gap 7 (5-15); BUN 11 mg/dL (7-18); BUN/Creat Ratio 16.1 RATIO (10-20); Calcium,Total 8.4 mg/dL (8.5-10.1); Chloride 109 mmol/L (98-107); Creatinine, Serum 0.68 mg/dL (0.55-1.02); EST Glomerular Filtration Rate 98 mL/min (>60); Est Glom Filt Rate - Afr Amer 119 mL/min (>60); Estimated Creatinine Clearance 88.32 ml/min; Globulin 4.1 g/dL (2.2-4.2); Glucose 199 mg/dL (74-106); Protein, Total 7.1 g/dL (6.4-8.2); Sodium Level 141 mmol/L (136-145)
[2021-08-29 07:15] LABS: Salicylate < 1.7 mg/dL (2.8-20.0)
[2021-08-29] MEDS: Acetaminophen 650 MG/20 ML UDC GT ×2 (09:11→17:24)
[2021-08-29] MEDS: Chlorhexidine 15 ML PO ×2 (09:12→22:03)
[2021-08-29] MEDS: Potassium Chloride Oral Soln 20 MEQ/15 ML UDC 40 MEQ GT ×2 (09:12→22:03)
[2021-08-29] MEDS: Enoxaparin 40 MG/0.4 ML Syringe SC (09:12)
[2021-08-29] MEDS: Propofol 10MG/Ml 1,000 MG/100 ML Bottle 14.2 MG CONT INF (10:45)
[2021-08-29 11:56] LABS: Bedside Glucose 246 mg/dL (74-106)
[2021-08-29] MEDS: Vital AF 1.2 Cal Liquid 1,000 ML 55 ML GT (12:43)
[2021-08-29 17:26] LABS: Bedside Glucose 238 mg/dL (74-106)
--- NOTE | 2021-08-29 17:57 | NURSING ---
resuming care of patient at this time
[2021-08-29] MEDS: QUEtiapine 25 MG Tablet 50 MG NG (22:03)
[2021-08-30] VITALS (29 sets, daily range): BP systolic 109–166; BP diastolic 64–93; PULSE 61–89; RESP 14–36; TEMP 37.4–38.2; O2SAT 95–100
[2021-08-30] MEDS: Insulin Lispro 100 UNIT/ML INSULN.PEN SC ×4 (00:35→18:24)
[2021-08-30 03:47] LABS: Absolute Lymphocyte Count 3.87 X10^3/uL (0.83-4.51); Absolute Neutrophil Count 10.2 X10^3/uL (2.0-7.7); Basophil# 0.07 X10^3/uL; Basophil% 0.5 % (0-1); Eosinophil# 0.09 X10^3/uL; Eosinophils% 0.6 % (0-5); Hematocrit 34.3 % (37-47); Hemoglobin 11.3 g/dL (12.0-15.0); Lymphocyte # 3.87 X10^3/ul (0.83-4.51); Lymphocyte % 24.9 % (19-41); Mean Corp Hgb Conc 32.9 g/dL (32-36); Mean Corpuscular Hgb 29.4 pg (27.0-32.0); Mean Corpuscular Volume 89.1 fL (81-99); Mean Platelet Vol. 8.4 fl (6.2-12.0); Monocyte# 1.19 X10^3/uL; Monocyte% 7.7 % (0-10); NRBC Flagged by Analyzer 0 % (0-5); Neutrophil # 10.24 X10^3/uL (2.7-7.7); Neutrophil % 65.8 % (47-70); Platelet Count 434 K/mm3 (150-450); RBC Distribution Width CV 14.7 % (11.6-14.6); RBC Distribution Width SD 47.2 fl (35.1-43.9); Red Blood Count 3.85 M/mm3 (4.2-5.4); White Blood Count 15.5 K/mm3 (4.4-11.0)
[2021-08-30 04:05] LABS: Anion Gap 6 (5-15); BUN 13 mg/dL (7-18); BUN/Creat Ratio 17.7 RATIO (10-20); Calcium,Total 8.7 mg/dL (8.5-10.1); Chloride 112 mmol/L (98-107); Creatinine, Serum 0.73 mg/dL (0.55-1.02); EST Glomerular Filtration Rate 90 mL/min (>60); Est Glom Filt Rate - Afr Amer 109 mL/min (>60); Estimated Creatinine Clearance 82.27 ml/min; Glucose 219 mg/dL (74-106); Potassium 3.8 mmol/L (3.5-5.1); Sodium Level 141 mmol/L (136-145)
[2021-08-30] MEDS: TITRATION PARAMETER CHANGE 1 EACH IV (05:16)
[2021-08-30] MEDS: Haloperidol Lactate 5 MG/ML Vial IV ×3 (06:41→20:57)
--- NOTE | 2021-08-30 06:43 | PN.CC_ITS ---
Assessment & Plan Assessment/Plan (1) Airway compromise: (2) Intentional overdose: QUALIFIERS: Encounter type: initial encounter Qualified Code(s): T50.902A - Poisoning by unspecified drugs, medicaments and biological substances, intentional self-harm, initial encounter PLAN: RECOMMENDATIONS: 1. Continue assist control mode mechanical ventilation. Possible extubation pending ABG 2. Continue Precedex therapy 3. Continue appropriate DVT and GI prophylaxis. 4. Continue sliding scale insulin coverage. 5. Bedside swallow evaluation 6. Patient dosed with antibiotics yesterday. Monitor clinically IMPRESSIONS: 1. Acute respiratory failure following suicide attempt/intentional overdose The patient was intubated after being transferred to the medical intensive care unit with a significantly decreased GCS and obtundation. Her encephalopathy was likely secondary to the sedative effects from her ingested medications. She was not notably hypoxemic prior to intubation. Post intubation chest x-ray revealed clear lung keller. Patient is agitated, but appears to be purposeful. Patient able to tolerate 1 hour. ABG currently pending. Hope to extubate later today. 2. Encephalopathy Likely secondary to medication effects in the setting of an intentional overdose. Post intubation ABG is appropriate. Patient does not appear to be following commands out of agitation and should be able to protect her airway. CT head revealed no acute changes. Patient more agitated than somnolent at this time 3. History of depression/hypertension/diabetes mellitus Complicates care, management, recovery and prognosis. Continue sliding scale insulin coverage for now. 4. Vaginal discharge Patient was significant discharge per nursing. UA may be suggestive of infection. Treated with azithromycin and ceftriaxone. Cannot exclude a UTI cody aisha STD. History is very limited. TIME: 31 minutes of critical care time, independent of procedures, was spent addressing the patient's acute respiratory failure following suicide attempt, encephalopathy, review of all data and collaboration with the care team. Subjective Subjective The patient did okay overnight from a hemodynamic standpoint. Patient did have a fever, but tolerated this well. This morning, patient was placed on spontaneous breathing trial, but there was some concern for breathing with the ventilator. Patient had been off of fentanyl and propofol overnight and was just on Precedex. Patient was stimulated and has since been agitated. Patient did receive 5 mg of Haldol to facilitate a 1 hour trial. ABG is currently pending. Patient is not following commands, but is making purposeful movements and appears to be ignoring staff. Objective Data Objective Data Vital Signs: Vital Signs Temp Pulse Resp BP Pulse Ox 38.0 C H 67 14 130/87 H 98 08/30/21 05:00 08/30/21 05:00 08/30/21 05:00 08/30/21 05:00 08/30/21 05:00 Oxygen Flow Rate (L/min) 2 Oxygen Delivery Method Mechanical Ventilator Weight: 79.9 kg Body Mass Index (BMI) 29.6 Intake & Output: Intake and Output for Last 24 Hours 08/28/21 08/29/21 08/30/21 23:59 23:59 23:59 Intake Total 2432.04 / 2459.24 1837.04 / 2102.29 669.90 / 669.90 Output Total 1765 / 1815 1070 / 1095 175 / 175 Balance 667.04 / 644.24 767.04 / 1007.29 494.90 / 494.90 Lab / Micro Data Result Diagrams: 08/30/21 03:40 08/30/21 03:40 Labs: Laboratory Results - last 24 hr 08/29/21 06:45: WBC 17.3 H, RBC 4.16 L, Hgb 12.1, Hct 37.1, MCV 89.2, MCH 29.1, MCHC 32.6, RDW Std Deviation 48.3 H, RDW Coeff of Yenifer 14.8 H, Plt Count 483 H, MPV 8.2, Immature Gran % (Auto) 0.400, Neut % (Auto) 72.1 H, Lymph % (Auto) 17.1 L, [place] % (Auto) 7.8, Eos % (Auto) 2.0, Baso % (Auto) 0.6, Absolute Neuts (auto) 12.5 H, Absolute Lymphs (auto) 2.95, Nucleated RBC % 0 08/29/21 06:45: Sodium 141, Potassium 3.0 L, Chloride 109 H, Carbon Dioxide 25.0, Anion Gap 7, BUN 11, Creatinine 0.68, Estim Creat Clear Calc 88.32, Est GFR (MDRD) Af Amer 119, Est GFR (MDRD) Non-Af 98, BUN/Creatinine Ratio 16.1, Glucose 199 H, Calcium 8.4 L, Total Bilirubin 0.30, AST 10 L, ALT 21, Alkaline Phosphatase 119 H, Total Protein 7.1, Albumin 3.0 L, Globulin 4.1, Al bumin/Globulin Ratio 0.7 L 08/29/21 06:45: Salicylates < 1.7 L 08/29/21 11:49: POC Glucose 246 H 08/29/21 17:17: POC Glucose 238 H 08/30/21 03:40: WBC 15.5 H, RBC 3.85 L, Hgb 11.3 L, Hct 34.3 L, MCV 89.1, MCH 29.4, MCHC 32.9, RDW Std Deviation 47.2 H, RDW Coeff of [place] 14.7 H, Plt Count 434, MPV 8.4, Immature Gran % (Auto) 0.500, Neut % (Auto) 65.8, Lymph % (Auto) 24.9, [place] % (Auto) 7.7, Eos % (Auto) 0.6, Baso % (Auto) 0.5, Absolute Neuts (auto) 10.2 H, Absolute Lymphs (auto) 3.87, Nucleated RBC % 0 08/30/21 03:40: Sodium 141, Potassium 3.8, Chloride 112 H, Carbon Dioxide 23.0, Anion Gap 6, BUN 13, Creatinine 0.73, Estim Creat Clear Calc 82.27, Est GFR (MDRD) Af Amer 109, Est GFR (MDRD) Non-Af 90, BUN/Creatinine Ratio 17.7, Glucose 219 H, Calcium 8.7 Micro: Microbiology 08/28/21 08:11 Sputum, Induced/Lukens Gram Stain - Final 08/28/21 08:11 Sputum, Induced/Lukens Respiratory Culture - Preliminary Beta hemolytic organism 08/27/21 23:16 Nasal Secretion SARS-CoV-2 Antigen (Rapid) - Final Physical Exam Const no apparent distress General Appearance: intubated and patient mechanically ventilated Nutritional Appearance: overweight HEENT normocephalic and head/scalp atraumatic Mouth: endotracheal tube in place and OG tube in place Eyes PERRL and EOMs intact bilaterally Neck supple General: trachea midline Chest inspection of chest normal Resp normal air movement Auscultation: Negative for rales, rhonchi or wheezes Cardio regular rate, regular rhythm, no murmurs, no rub and no gallops GI normal to inspection, nondistended, normoactive bowel sounds Extremity no clubbing, cyanosis or edema Skin no rashes or lesions noted Neuro no focal motor deficits Sensorium / Orientation: sedated on vent Psych Attitude: agitated Activity / Motor Behavior: psychomotor agitation Charges/Coding Procedures Hospitalists Procedures: 53930 Critial Care 1st Hr
[2021-08-30 07:16] LABS: Bedside Glucose 283 mg/dL (74-106)
[2021-08-30 07:36] LABS: Base Excess -1 mmol/L (-2 to +2); Bicarbonate 24.1 mmol/L (22-26); Blood Gas Specimen Type ART; FI02 30; Mode NCPAP; O2 Delivery Device ET Tube; PEEP 5; PO2 68 mmHG (75-100); SITE L Brach; SO2 93 % (95-99); Total Carbon Dioxide 25 mmol/L; pH 7.41 (7.35-7.45)
--- NOTE | 2021-08-30 07:57 | EKG12_ITS ---
Test Reason : Blood Pressure : / mmHG Vent. Rate : 082 BPM Atrial Rate : 082 BPM P-R Int : 132 ms QRS Dur : 072 ms QT Int : 374 ms P-R-T Axes : 032 035 036 degrees QTc Int : 436 ms Normal sinus rhythm Normal ECG When compared with ECG of 28-AUG-2021 00:24, No significant change was found Confirmed by APURVA GRANDE, ROBERT ([id number]), telegraph editor SEYMOUR GALVEZ ([id number]) on 09/03/2021 2:39:42 PM Referred By: YAZ Confirmed By:MIGUEL MIXON MD
--- NOTE | 2021-08-30 08:55 | NURSING ---
0730- patient kicking legs, thrashing in bed, sitting up attempting to reach for tube, RASS +3, this RN and Martha CONVENTION SERVICES DIRECTOR in room to keep patient safe and communicate POC. Patient not following any commands, not making eye contact. 0745- per Dr. River order, extubated patient at this time, placed on 2L NC, patient remains very agitated, concerned for patient safety and safety of others, placed in bilateral soft ankle restraints at 0745. 0800- order for haldol 5mg IV from Dr. River obtained, given at 0801. This RN and KHUSHI Thomas remained at bedside attempting to orient patient and maintain safety. KHUSHI Thomas remained in room as sitter for suicide precautions. Will continue to monitor.
[2021-08-30] MEDS: Enoxaparin 40 MG/0.4 ML Syringe SC (09:32)
[2021-08-30 09:46] LABS: Bedside Glucose 268 mg/dL (74-106)
--- NOTE | 2021-08-30 09:47 | CASEMGMT ---
Social Work Note SW participated in interdisciplinary rounds. Crisis to evaluate pt on once medically cleared. Mya Chinchilla USED CAR SALES MANAGER, DIVINITY PROFESSOR
[2021-08-30] MEDS: Insulin Glargine-YFGN 100 UNIT/ML Pen 15 UNIT SC (10:15)
[2021-08-30 11:56] LABS: Bedside Glucose 280 mg/dL (74-106)
[2021-08-30] MEDS: Dexmedetomidine 1,000 mcg in 0.9% NS 240 mL 34 MCG CONT INF ×2 (12:24→19:46)
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
[2021-08-30 18:21] LABS: Bedside Glucose 193 mg/dL (74-106)
--- NOTE | 2021-08-30 23:59 | NURSING ---
Pt agitation spontaneously increases at which point becomes combative. Agitation noted with and without agitation.
[2021-08-31] VITALS (24 sets, daily range): BP systolic 120–173; BP diastolic 62–101; PULSE 54–81; RESP 14–30; TEMP 36.1–37.7; O2SAT 96–100
[2021-08-31 00:26] LABS: Bedside Glucose 176 mg/dL (74-106)
[2021-08-31] MEDS: Insulin Lispro 100 UNIT/ML INSULN.PEN SC ×4 (01:00→16:55)
[2021-08-31] MEDS: Dexmedetomidine 1,000 mcg in 0.9% NS 240 mL 34 MCG CONT INF (03:43)
[2021-08-31 05:45] LABS: Absolute Lymphocyte Count 2.97 X10^3/uL (0.83-4.51); Absolute Neutrophil Count 9.8 X10^3/uL (2.0-7.7); Basophil# 0.07 X10^3/uL; Basophil% 0.5 % (0-1); Eosinophil# 0.06 X10^3/uL; Eosinophils% 0.4 % (0-5); Hematocrit 34.6 % (37-47); Hemoglobin 11.5 g/dL (12.0-15.0); Lymphocyte # 2.97 X10^3/ul (0.83-4.51); Lymphocyte % 21.4 % (19-41); Mean Corp Hgb Conc 33.2 g/dL (32-36); Mean Corpuscular Hgb 28.9 pg (27.0-32.0); Mean Corpuscular Volume 86.9 fL (81-99); Monocyte# 0.85 X10^3/uL; Monocyte% 6.1 % (0-10); NRBC Flagged by Analyzer 0 % (0-5); Neutrophil # 9.82 X10^3/uL (2.7-7.7); POSITIVE COUNT YES; Platelet Count 320 K/mm3 (150-450); Red Blood Count 3.98 M/mm3 (4.2-5.4); White Blood Count 13.9 K/mm3 (4.4-11.0)
[2021-08-31 05:55] LABS: Differential Indicated SCAN CRITERIA MET
[2021-08-31 06:10] LABS: ALB/GLOB Ratio 0.6 RATIO (0.9-2.4); AST(SGOT) 14 U/L (15-37); Alanine Aminotransfer ALT/SGPT 18 U/L (13-56); Albumin, Serum 2.8 g/dL (3.2-5.0); Alkaline Phosphatase 115 U/L (45-117); Anion Gap 8 (5-15); BUN 13 mg/dL (7-18); BUN/Creat Ratio 19.7 RATIO (10-20); Chloride 109 mmol/L (98-107); Creatinine, Serum 0.66 mg/dL (0.55-1.02); EST Glomerular Filtration Rate 102 mL/min (>60); Est Glom Filt Rate - Afr Amer 123 mL/min (>60); Estimated Creatinine Clearance 90.99 ml/min; Globulin 4.6 g/dL (2.2-4.2); Glucose 220 mg/dL (74-106); Potassium 3.5 mmol/L (3.5-5.1); Protein, Total 7.4 g/dL (6.4-8.2); Sodium Level 139 mmol/L (136-145)
[2021-08-31 06:26] LABS: Bedside Glucose 211 mg/dL (74-106)
--- NOTE | 2021-08-31 06:34 | PCM.PN.INT ---
Assessment & Plan Assessment/Plan (1) Airway compromise: (2) Intentional overdose: QUALIFIERS: Encounter type: initial encounter Qualified Code(s): T50.902A - Poisoning by unspecified drugs, medicaments and biological substances, intentional self-harm, initial encounter PLAN: RECOMMENDATIONS: 1. Attempt removal of restraints through the day 2. Wean Precedex therapy as tolerated 3. Continue appropriate DVT and GI prophylaxis. 4. Continue sliding scale insulin coverage. 5. Complete 7 days of antibiotics IMPRESSIONS: 1. Acute respiratory failure following suicide attempt/intentional overdose The patient was intubated after being transferred to the medical intensive care unit with a significantly decreased GCS and obtundation. Her encephalopathy was likely secondary to the sedative effects from her ingested medications. She was not notably hypoxemic prior to intubation. Post intubation chest x-ray revealed clear lung keller. Patient successfully extubated yesterday. Patient did have significant agitation after extubation require four-point restraints. Patient has been doing well on room air and protecting her airway. 2. Encephalopathy Slowly improving. Likely secondary to medication effects in the setting of an intentional overdose. Post intubation ABG is appropriate. Patient does not appear to be following commands out of agitation and should be able to protect her airway. CT head revealed no acute changes. Patient does appear to be more appropriate today compared to yesterday. Will attempt to wean Precedex therapy as tolerated 3. History of depression/hypertension/diabetes mellitus Complicates care, management, recovery and prognosis. Continue sliding scale insulin coverage for now. 4. Vaginal discharge Patient was significant discharge per nursing. UA may be suggestive of infection. Treated with azithromycin and ceftriaxone initially. Currently on Unasyn. Urine culture suggestive of UTI as an etiology. History is very limited. Subjective Subjective Patient did okay overnight. Patient did once again spike a fever, but was hypertensive more than hypotensive. Patient did have some increased agitation overnight and did require Haldol in addition to her Precedex. Patient appears to be more appropriate this morning, but still slow to respond. Did attempt to remove lower soft restraints patient appears to be tolerating it at this time. Objective Data Objective Data Vital Signs: Vital Signs Temp Pulse Resp BP Pulse Ox 37.4 C H 69 14 157/93 H 99 08/31/21 04:00 08/31/21 04:00 08/31/21 04:00 08/31/21 04:00 08/31/21 04:00 Oxygen Flow Rate (L/min) 2 Oxygen Delivery Method Room Air Weight: 79.9 kg Body Mass Index (BMI) 29.6 Intake & Output: Intake and Output for Last 24 Hours 08/29/21 08/30/21 08/31/21 23:59 23:59 23:59 Intake Total 1837.04 / 2102.29 1716.18 / 1750.18 149.70 / 149.70 Output Total 1070 / 1095 1310 / 1410 550 / 550 Balance 767.04 / 1007.29 406.18 / 340.18 -400.30 / -400.30 Lab / Micro Data Result Diagrams: 08/31/21 05:30 08/31/21 05:30 Labs: Laboratory Results - last 24 hr 08/30/21 07:06: POC Glucose 283 H 08/30/21 09:40: POC Glucose 268 H 08/30/21 11:51: POC Glucose 280 H 08/30/21 18:14: POC Glucose 193 H 08/31/21 00:22: POC Glucose 176 H 08/31/21 05:30: WBC 13.9 H, RBC 3.98 L, Hgb 11.5 L, Hct 34.6 L, MCV 86.9, MCH 28.9, MCHC 33.2, RDW Std Deviation 44.0 H, RDW Coeff of Yenifer 14.0, Plt Count 320, MPV 9.0, Immature Gran % (Auto) 0.600, Neut % (Auto) 71.0 H, Lymph % (Auto) 21.4, [place] % (Auto) 6.1, Eos % (Auto) 0.4, Baso % (Auto) 0.5, Absolute Neuts (auto) 9.8 H, Absolute Lymphs (auto) 2.97, Nucleated RBC % 0 08/31/21 05:30: Sodium 139, Potassium 3.5, Chloride 109 H, Carbon Dioxide 22.0, Anion Gap 8, BUN 13, Creatinine 0.66, Estim Creat Clear Calc 90.99, Est GFR (MDRD) Af Amer 123, Est GFR (MDRD) Non-Af 102, BUN/Creatinine Ratio 19.7, Glucose 220 H, Calcium 9.0, Total Bilirubin 0.50, AST 14 L, ALT 18, Alkaline Phosphatase 115, Total Protein 7.4, Albumin 2.8 L, Globulin 4.6 H, Albumin/Globulin Ratio 0.6 L 08/31/21 06:12: POC Glucose 211 H Micro: Microbiology 08/28/21 23:55 Urine Catheter - Lozano Urine Culture - Preliminary Streptococcus agalactiae (B) 08/28/21 08:11 Sputum, Induced/Lukens Gram Stain - Final 08/28/21 08:11 Sputum, Induced/Lukens Respiratory Culture - Preliminary Streptococcus agalactiae (B) 08/27/21 23:16 Nasal Secretion SARS-CoV-2 Antigen (Rapid) - Final ABG Data ABG results: ABG 08/30/21 07:32 Specimen Type ART Sample Site L Brach pH 7.41 Bicarbonate Actual 24.1 Total CO2 25 Base Excess -1 O2 Saturation 93 L O2 % 30 ABG pCO2 38.0 ABG pO2 68 L Jaime Test N/A O2 Delivery Device ET Tube Vent Mode NCPAP POC PEEP 5 Physical Exam Const no apparent distress Constitutional Narrative: RASS -1. General Appearance: lethargic and appears older than stated age Nutritional Appearance: overweight HEENT normocephalic and head/scalp atraumatic Mouth: No mouth trauma, muffled voice and No lesions Eyes PERRL and EOMs intact bilaterally Neck supple General: trachea midline Chest inspection of chest normal Resp normal air movement Auscultation: Negative for rales, rhonchi or wheezes Cardio regular rate, regular rhythm, no murmurs, no rub and no gallops GI normal to inspection, nondistended, normoactive bowel sounds Extremity no clubbing, cyanosis or edema Skin no rashes or lesions noted Neuro no focal motor deficits Sensorium / Orientation: sedated on vent Psych Attitude: withdrawn Charges/Coding Visit Charges Inpatient E&M: [address] [facility] Hosp L3
[2021-08-31 07:03] LABS: Differential Comment SCANNED
[2021-08-31 07:04] LABS: Platelet Estimate ADEQUATE (ADEQ); Platelet Morphology CLUMPED
[2021-08-31 07:41] LABS: Bedside Glucose 215 mg/dL (74-106)
[2021-08-31 07:41] LABS: Bedside Glucose 208 mg/dL (74-106)
--- NOTE | 2021-08-31 08:45 | NURSING ---
Called pt's sister Jesusita to let her know pt is asking for her. Phone went straight to . Left message.
[2021-08-31] MEDS: Menthol/Lanolin/Calamine/Znox 113 GM Tube 1 APPLIC TOPICAL (10:19)
[2021-08-31] MEDS: Lisinopril 5 MG Tablet PO (10:20)
[2021-08-31] MEDS: Dexmedetomidine 1,000 mcg in 0.9% NS 240 mL 28 MCG CONT INF (10:20)
[2021-08-31] MEDS: Enoxaparin 40 MG/0.4 ML Syringe SC (10:22)
[2021-08-31] MEDS: Insulin Glargine-YFGN 100 UNIT/ML Pen 15 UNIT SC (11:32)
[2021-08-31 11:40] LABS: Bedside Glucose 236 mg/dL (74-106)
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
[2021-08-31] MEDS: Sucralfate 1 GM Tablet PO ×2 (16:49→21:49)
[2021-08-31 17:01] LABS: Bedside Glucose 163 mg/dL (74-106)
[2021-08-31] MEDS: Famotidine 20 MG Tablet PO (21:49)
[2021-08-31 22:11] LABS: Bedside Glucose 110 mg/dL (74-106)
[2021-09-01] VITALS (15 sets, daily range): BP systolic 111–179; BP diastolic 69–114; PULSE 70–104; RESP 16–23; TEMP 36.3–36.6; O2SAT 97–100
[2021-09-01 03:55] LABS: Absolute Lymphocyte Count 3.37 X10^3/uL (0.83-4.51); Absolute Neutrophil Count 9.8 X10^3/uL (2.0-7.7); Basophil# 0.11 X10^3/uL; Basophil% 0.7 % (0-1); Eosinophil# 0.12 X10^3/uL; Eosinophils% 0.8 % (0-5); Hematocrit 37.1 % (37-47); Hemoglobin 12.4 g/dL (12.0-15.0); Lymphocyte # 3.37 X10^3/ul (0.83-4.51); Lymphocyte % 22.8 % (19-41); Mean Corp Hgb Conc 33.4 g/dL (32-36); Mean Corpuscular Hgb 28.6 pg (27.0-32.0); Mean Corpuscular Volume 85.5 fL (81-99); Mean Platelet Vol. 8.5 fl (6.2-12.0); Monocyte# 1.25 X10^3/uL; Monocyte% 8.5 % (0-10); NRBC Flagged by Analyzer 0 % (0-5); Neutrophil # 9.78 X10^3/uL (2.7-7.7); Neutrophil % 66.1 % (47-70); Platelet Count 544 K/mm3 (150-450); RBC Distribution Width CV 14.1 % (11.6-14.6); RBC Distribution Width SD 43.5 fl (35.1-43.9); Red Blood Count 4.34 M/mm3 (4.2-5.4); White Blood Count 14.8 K/mm3 (4.4-11.0)
[2021-09-01] MEDS: Sucralfate 1 GM Tablet PO ×2 (06:34→11:22)
[2021-09-01 06:36] LABS: Bedside Glucose 116 mg/dL (74-106)
--- NOTE | 2021-09-01 06:51 | PCM.PN.INT ---
Assessment & Plan Assessment/Plan (1) Airway compromise: (2) Intentional overdose: QUALIFIERS: Encounter type: initial encounter Qualified Code(s): T50.902A - Poisoning by unspecified drugs, medicaments and biological substances, intentional self-harm, initial encounter PLAN: RECOMMENDATIONS: 1. Advance diet as tolerated 2. Titrate hypertensive medications 3. Continue appropriate DVT and GI prophylaxis. 4. Continue sliding scale insulin coverage. 5. Complete 7 days of antibiotics 6. Hemodynamically stable on room air. Will sign off from a critical care perspective IMPRESSIONS: 1. Acute respiratory failure following suicide attempt/intentional overdose The patient was intubated after being transferred to the medical intensive care unit with a significantly decreased GCS and obtundation. Her encephalopathy was likely secondary to the sedative effects from her ingested medications. She was not notably hypoxemic prior to intubation. Post intubation chest x-ray revealed clear lung keller. Patient successfully extubated 08/30/2021. Patient did have significant agitation after extubation require four-point restraints. However, mentation has continued to improve. Patient has been doing well on room air and protecting her airway. 2. Encephalopathy Resolved. Likely secondary to medication effects in the setting of an intentional overdose. Post intubation ABG is appropriate. Patient does not appear to be following commands out of agitation and should be able to protect her airway. CT head revealed no acute changes. Patient does appear to be appropriate at this time. Patient medically stable for crisis evaluation 3. History of depression/hypertension/diabetes mellitus Complicates care, management, recovery and prognosis. Continue sliding scale insulin coverage for now. We will titrate lisinopril up and add metoprolol. 4. Vaginal discharge Patient was significant discharge per nursing. UA may be suggestive of infection. Treated with azithromycin and ceftriaxone initially. Currently on Unasyn. Okay to transition to Augmentin to finish course. Urine culture suggestive of UTI as an etiology. History is very limited. Subjective Subjective Patient did well overnight. No acute issues are reported. Patient is much more appropriate today. Patient has had some higher blood pressures overnight, but no neurologic changes are noted. Patient tolerating well on room air. Patient has not required Precedex in almost 24 hours. Objective Data Objective Data Vital Signs: Vital Signs Temp Pulse Resp BP Pulse Ox 36.3 C L 70 22 H 148/87 H 100 09/01/21 00:00 09/01/21 05:00 09/01/21 05:00 09/01/21 05:00 09/01/21 05:00 Oxygen Flow Rate (L/min) 2 Oxygen Delivery Method Room Air Weight: 79.1 kg Body Mass Index (BMI) 29.6 Intake & Output: Intake and Output for Last 24 Hours 08/30/21 08/31/21 09/01/21 23:59 23:59 23:59 Intake Total 1716.18 / 1750.18 1412.37 / 1412.37 112 / 112 Output Total 1310 / 1410 1835 / 2035 720 / 720 Balance 406.18 / 340.18 -422.63 / -622.63 -608 / -608 Lab / Micro Data Result Diagrams: 09/01/21 03:40 08/31/21 05:30 Labs: Laboratory Results - last 24 hr 08/30/21 00:19: POC Glucose 215 H 08/30/21 00:20: POC Glucose 208 H 08/31/21 05:30: Differential Comment SCANNED, Platelet Estimate ADEQUATE, Plt Morphology Comment CLUMPED 08/31/21 11:30: POC Glucose 236 H 08/31/21 16:54: POC Glucose 163 H 08/31/21 21:48: POC Glucose 110 H 09/01/21 03:40: WBC 14.8 H, RBC 4.34, Hgb 12.4, Hct 37.1, MCV 85.5, MCH 28.6, MCHC 33.4, RDW Std Deviation 43.5, RDW Coeff of Yenifer 14.1, Plt Count 544 H, MPV 8.5, Immature Gran % (Auto) 1.100 H, Neut % (Auto) 66.1, Lymph % (Auto) 22.8, [place] % (Auto) 8.5, Eos % (Auto) 0.8, Baso % (Auto) 0.7, Absolute Neuts (auto) 9.8 H, Absolute Lymphs (auto) 3.37, Nucleated RBC % 0 09/01/21 06:29: POC Glucose 116 H Micro: Microbiology 08/29/21 13:45 Blood Culture (Wb) - Wrist Blood Culture - Preliminary No growth in 48 hours. 08/29/21 13:10 Blood Culture (Wb) - Right Hand Blood Culture - Preliminary No growth in 48 hours. 08/28/21 08:11 Sputum, Induced/Lukens Gram Stain - Final 08/28/21 08:11 Sputum, Induced/Lukens Respiratory Culture - Final Streptococcus agalactiae (B) Mixed Franca 08/28/21 23:55 Urine Catheter - Lozano Urine Culture - Final Streptococcus agalactiae (B) 08/27/21 23:16 Nasal Secretion SARS-CoV-2 Antigen (Rapid) - Final Physical Exam Const alert, oriented x3 and no apparent distress Constitutional Narrative: RASS 0 General Appearance: appears older than stated age Nutritional Appearance: overweight HEENT normocephalic and head/scalp atraumatic Mouth: No mouth trauma, muffled voice and No lesions Eyes PERRL and EOMs intact bilaterally Neck supple General: trachea midline Chest inspection of chest normal Resp normal air movement Auscultation: Negative for rales, rhonchi or wheezes Cardio regular rate, regular rhythm, no murmurs, no rub and no gallops GI normal to inspection, nondistended, normoactive bowel sounds Extremity no clubbing, cyanosis or edema Skin no rashes or lesions noted Neuro no focal motor deficits Sensorium / Orientation: sedated on vent Psych Attitude: withdrawn Charges/Coding Visit Charges Inpatient E&M: 99190 Subs Hosp L2
[2021-09-01] MEDS: Famotidine 20 MG Tablet PO (08:11)
[2021-09-01] MEDS: Enoxaparin 40 MG/0.4 ML Syringe SC (08:12)
[2021-09-01] MEDS: Insulin Glargine-YFGN 100 UNIT/ML Pen 30 UNIT SC (08:13)
[2021-09-01] MEDS: Menthol/Lanolin/Calamine/Znox 113 GM Tube 1 APPLIC TOPICAL (08:14)
[2021-09-01] MEDS: Lisinopril 10 MG Tablet PO (08:16)
[2021-09-01] MEDS: Metoprolol Tartrate 25 MG Tablet 12.5 MG PO (08:17)
--- NOTE | 2021-09-01 09:37 | CASEMGMT ---
Social Work SW spoke with physician who states pt is medically cleared to been seen by crisis today. Referral made to Anali at Crisis and referral information faxed. Anali to see pt later today for psychiatric placement. NUNO Ruiz
[2021-09-01] MEDS: Insulin Lispro 100 UNIT/ML INSULN.PEN SC (11:22)
[2021-09-01 11:31] LABS: Bedside Glucose 207 mg/dL (74-106)
--- NOTE | 2021-09-01 11:45 | CASEMGMT ---
Social Work Return call from Mya at Crisis who states she will come to assess pt around noon. Nursing updated. NUNO Ruiz
--- NOTE | 2021-09-01 12:29 | NURSING ---
Crisis at bedside evaluating patient
--- NOTE | 2021-09-01 15:01 | CASEMGMT ---
Social Work SW spoke with Mya from Crisis. Pt has been accepted at [facility] on the dual diagnosis unit. Dr. Arias is the accepting physician. Nurse to Nurse to be called to [phone] and pink slip to be faxed to [phone]. RADHIKA Najera. NUNO Ruiz
--- NOTE | 2021-09-01 15:23 | DS.PCM_ITS ---
Providers Date of Admission: 08/28/21 Date of Discharge: 09/01/21 Primary Care Physician: NO Husain Consultations 08/28/21 05:21 Consult: Yard Attendant / Pulmonary Medicine Routine Consulting Provider: [facility] Reason for Consult: Intubated to protect airway. Continue to EMERGENT Consult: No MD Notified: Yes Date Notified: 08/28/21 Time Notified: 05:21 Method of Notification: Text Reason For Visit: SUICIDAL OVERDOSE. ATTEMPT Diagnosis Discharge Diagnosis (1) Airway compromise: Status: Acute Code(s): J98.8 - Other specified respiratory disorders (2) Intentional overdose: Status: Acute Code(s): T50.902A - Poisoning by unspecified drugs, medicaments and biological substan karen, intentional self-harm, initial encounter Qualifiers: Encounter type: initial encounter Qualified Code(s): T50.902A - Poisoning by unspecified drugs, medicaments and biological substances, intentional self-harm, initial encounter Medications at Discharge Home Medications metformin 1,000 mg PO BID 02/16/14 gabapentin 800 mg PO 4X/DAY 04/22/17 cyanocobalamin (vitamin B-12) 1,000 mcg PO DAILY 06/02/18 Ranitidine [Zantac] 150 mg PO BID 08/22/18 Toujeo SoloStar U-300 Insulin 60 unit SQ DAILY 08/22/18 hydroxyzine pamoate 50 mg PO BID PRN PRN #20 cap 04/09/19 sucralfate 1 gm PO 4X/DAY #20 tab 04/09/19 amoxicillin-pot clavulanate [Augmentin XR] 1 tab PO BID #8 tab 09/01/21 lisinopril 10 mg PO DAILY #30 tab 09/01/21 Hospital Course Operations None Procedures Intubation Summary of Care Provided Minutes Spent on Discharge: 38 Hospital Course: Ms. Daley is a 46-year-old white female who presented to the emergency department at [facility] on 08/28/2021 after an intentional drug overdose with gabapentin and baclofen. The patient was brought in by the EMS in the [facility] for suicide attempt. The patient evidently got upset with he r fianc? because her fianc? broke up with her and left the residence at which she was residing. She then called her mother at 9 PM and reported she took baclofen and gabapentin to hurt herself. Her mother then called the police at which time they presented to her house. Initially the police found her talking but then she developed a depressed mental status with confusion and slurred speech. They found empty pill bottles of gabapentin and baclofen at that time. There is also a serrated knife nearby with some cut reyes on her right wrist. There is also reported circumstantial evidence of multiple pictures in her bedroom consistent with suicidal ideation. She was given 4 mg of Narcan with no significant effect and brought to the emergency department. Her GCS was initially 15 but depressed to 3 and there show where she was intubated after presenting to the intensive care unit. Her vital signs were otherwise overall stable other than elevated blood pressure with a blood pressure of 160/106. Her EKG showed normal sinus rhythm with a normal QTC and no evidence of ST-T wave changes consistent with ischemia. She remained intubated until the a.m. of 08/30/2021 at which time she was able to be extubated but remained persistently and significantly encephalopathic. She required Precedex and four-point restraints initially. On the following day she was able to be placed in two-po int restraints and on the a.m. of 09/01/2021 she was out of restraints, off Precedex, and mentating appropriately. She was pancultured on admission. Blood cultures were negative. Urine culture showed strep agalactiae. Urine cultures showed strep agalactiae. She was placed on IV antibiotics with Unasyn on 08/30/2021 and had 3 full days prior to discharge. On 09/01/2021 it was felt she was medically stable for discharge and crisis was called to evaluate the patient. After evaluation she was accepted for psychiatric care at an inpatient psychiatric facility in [facility]. During her hospitalization her blood pressure remained elevated after her overdose issues had been resolved and she was therefore started on lisinopril 10 mg daily with improved blood pressure. We chose this medication given her history of diabetes. Her blood sugars were stable upon discharge. She was discharged with Augmentin to complete a course of antibiotics for 4 more days as well as lisinopril as mentioned above. She was discharged in stable condition on 09/01/2021. Discharge diagnoses: Acute hypoxic respiratory failure secondary to suicide attempt/intentional overdose/aspiration pneumonia Aspiration pneumonia Strep agalactiae urinary tract infection-treatment completed Suicide attempt Toxic/metabolic encephalopathy-resolved DM-2 Hypertension Neuropathy GERD Tobacco abuse Physical Exam Const alert and no apparent distress Constitutional Narrative: Overweight middle-aged white female sitting up in a chair at the bedside, sitter is at the bedside, patient appears calm and watching television, eating breakfast, nontoxic, appropriately interactive today General Appearance: cooperative, comfortable, well kempt and well developed Orientation / Consciousness: awake Exam Limitations: no limitations Nutritional Appearance: overweight HEENT normocephalic, head/scalp atraumatic, hearing grossly normal bilaterally and moist oral mucous membranes HEENT Narrative: Mallampati is 3, no thrush Eyes PERRL, EOMs intact bilaterally and conjunctivae normal Eyes Narrative: No scleral icterus Neck no lymphadenopathy, supple and no JVD Neck Narrative: Trachea is midline, no thyroid enlargement Resp normal respiratory effort, no retractions, no use of accessory muscles and clear to auscultation bilaterally Resp Narrative: Diffusely diminished but clear today Auscultation: Negative for crackles, rales, rhonchi or wheezes Cardio regular rate, regular rhythm, S1 normal heart sound, S2 normal heart sound, no murmurs, no rub, no gallops, no clicks and no JVD GI normal to inspection, nondistended, normoactive bowel sounds, soft to palpation, non-tender and non-distended Extremity no clubbing, cyanosis or edema Skin no rashes or lesions noted, no wounds, skin turgor normal, no jaundice, no petechiae and no mottling Neuro oriented x3, CN's II-XII intact bilaterally, moves all extremities and no focal motor deficits Neuro Narrative: Patient is finally alert and oriented today follows commands appropriately and interacts appropriately Sensorium / Orientation: awake and alert Speech: speech normal Psych Psych Narrative: Mood is still somewhat labile and affect is flat with depressed mood Weight / BMI Weight Weight: 79.1 kg Body Mass Index (BMI) 29.6 ABG / Lab / Microbiology Data Result Diagrams: 09/01/21 03:40 08/31/21 05:30 Laboratory: Laboratory Results - last 24 hr 08/31/21 16:54: POC Glucose 163 H 08/31/21 21:48: POC Glucose 110 H 09/01/21 03:40: WBC 14.8 H, RBC 4.34, Hgb 12.4, Hct 37.1, MCV 85.5, MCH 28.6, MCHC 33.4, RDW Std Deviation 43.5, RDW Coeff of Yenifer 14.1, Plt Count 544 H, MPV 8.5, Immature Gran % (Auto) 1.100 H, Neut % (Auto) 66.1, Lymph % (Auto) 22.8, [place] % (Auto) 8.5, Eos % (Auto) 0.8, Baso % (Auto) 0.7, Absolute Neuts (auto) 9.8 H, Absolute Lymphs (auto) 3.37, Nucleated RBC % 0 09/01/21 06:29: POC Glucose 116 H 09/01/21 11:21: POC Glucose 207 H Microbiology: Microbiology 08/29/21 13:45 Blood Culture (Wb) - Wrist Blood Culture - Preliminary No growth in 48 hours. 08/29/21 13:10 Blood Culture (Wb) - Right Hand Blood Culture - Preliminary No growth in 48 hours. 08/28/21 08:11 Sputum, Induced/Lukens Gram Stain - Final 08/28/21 08:11 Sputum, Induced/Lukens Respiratory Culture - Final Streptococcus agalactiae (B) Mixed Franca 08/28/21 23:55 Urine Catheter - Lozano Urine Culture - Final Streptococcus agalactiae (B) 08/27/21 23:16 Nasal Secretion SARS-CoV-2 Antigen (Rapid) - Final D/C Instructions Discharge Diet: Low fat / Low cholesterol and 1800 Calorie Control Diet Discharge Activity: Return to Normal Activity Meaningful Use Info Meaningful Use Diagnoses (Choose all that apply): None applicable Discharge Plan Admission Admit Date/Time: 08/28/21 01:43 Primary Reason for Your Visit: Intentional OD Attending Provider: Diana Pickett Primary Care Provider: Catalina Samuels NP Consulting Providers: Andres River ; Thien Lutz ; Rosa Delarosa CAMPUS DIRECTOR Discharge Orders/Prescriptions Prescriptions: New lisinopril 10 mg Tablet 10 mg PO DAILY Qty: 30 RF: 0 amoxicillin-pot clavulanate [Augmentin XR] 1,000-62.5 mg tablet extended release 12 hr 1 tab PO BID Qty: 8 RF: 0 Continued metformin 500 MG tablet 1,000 mg PO BID RF: 0 cyanocobalamin (vitamin B-12) 1,000 MCG capsule 1,000 mcg PO DAILY RF: 0 Toujeo SoloStar U-300 Insulin 300 UNIT/ML insulin pen 60 unit SQ DAILY RF: 0 Ranitidine [Zantac] 150 MG tablet 150 mg PO BID RF: 0 sucralfate 1 GM tablet 1 gm PO 4X/DAY Qty: 20 RF: 0 hydroxyzine pamoate 50 MG capsule 50 mg PO BID PRN PRN (Reason: Anxiety) Qty: 20 RF: 0 Held gabapentin 800 MG tablet 800 mg PO 4X/DAY RF: 0 Hold Instructions: until instructed to restart Discontinued cyclobenzaprine 10 MG tablet 10 mg PO TID PRN (Reason: Muscle Spasm) Qty: 15 RF: 0 Referrals / Follow Up: Catalina Samuels NP, CAMPUS DIRECTOR-C [Primary Care Provider] - Within 1 Month Disposition Disposition (needs filled in before D/C Order can be placed): [facility] Unit Charges/Coding Visit Charges Inpatient E&M: 90404 Disch Hosp
== END 2021-09-01 16:15 | DRG 817 ==
LOC: ED 08-28 01:54 → ICU 08-28 02:07
PROVIDERS: Family Medicine; Internal Medicine Critical Care Medicine; Admitting Provider Internal Medicine; Emergency Provider Emergency Medicine; PCP Nurse Practitioner Family; Visit Provider Internal Medicine
DX: T42.6X2A Poisoning by other antiepileptic and sedative-hypnotic drugs, intentional self-harm, initial encounter (principal); J96.01 Acute respiratory failure with hypoxia; J69.0 Pneumonitis due to inhalation of food and vomit; G92.8 Other toxic encephalopathy; E11.40 Type 2 diabetes mellitus with diabetic neuropathy, unspecified; B95.1 Streptococcus, group B, as the cause of diseases classified elsewhere; E66.9 Obesity, unspecified; T42.8X2A Poisoning by antiparkinsonism drugs and other central muscle-tone depressants, intentional self-harm, initial encounter; Z79.4 Long term (current) use of insulin; K21.9 Gastro-esophageal reflux disease without esophagitis; I10 Essential (primary) hypertension; S60.511A Abrasion of right hand, initial encounter; N39.0 Urinary tract infection, site not specified; S61.511A Laceration without foreign body of right wrist, initial encounter; F17.210 Nicotine dependence, cigarettes, uncomplicated; F41.9 Anxiety disorder, unspecified; R45.1 Restlessness and agitation; F32.A Depression, unspecified; Z20.822 Contact with and (suspected) exposure to COVID-19; N89.8 Other specified noninflammatory disorders of vagina; Z23 Encounter for immunization; Z68.29 Body mass index [BMI] 29.0-29.9, adult; Y92.009 Unspecified place in unspecified non-institutional (private) residence as the place of occurrence of the external cause; Z78.1 Physical restraint status; Z79.899 Other long term (current) drug therapy; Z86.16 Personal history of COVID-19
CPT/HCPCS: 31500; 31720; 36600; 70450; 71045; 74018; 80048; 80053; 80307; 80329; 81001; 81002; 81025; 82077; 82550; 82803; 82962; 83735; 84100; 84478; 85025; 87040; 87070; 87077; 87086; 87088; 87186; 87205; 87811; 92526; 92610; 93005; 94002; 94003; 94660; 97802; 99251; 99284; G0008; J7030; J7050; 90686; A4216; G0463; G0480; J0295; J3010

== ENCOUNTER 2021-11-17 08:32 | Emergency (ER) | payer MEDICARE, MEDICAID, SELFPAY ==
[2021-11-17 08:33] VITALS: BP 200/100; PULSE 116; RESP 22; TEMP 36.7; BMI 31.1
--- NOTE | 2021-11-17 09:21 | EX.ED.DYSGE1 ---
HPI History of Present Illness Chief Complaint: General Illness Informant: patient Narrative Narrative: 46-year-old female states that she has worms coming out of her anus and her toes. She states that she went to the foot doctor and the foot doctor took a chunk out of my toe and stated that they did not see any worms. She states that in the recent days she has seen worms in her stool. She states that her noticed them today and felt that they look like they had legs. She denies any anal itching. She is crying. She has brought a sample for me to go through. Patient states that at 1 point she had some type of worm in her cabinet of her house and she took it to the [facility] and they told her to put lavender and then her. She states that she has been eating strawberries from the garden and perhaps she got worms from that. She has not had any travel. She denies any uncooked meats. [facility] Medical History Abdominal pain Acid reflux Depression Depression with suicidal ideation Diabetes Femur fracture, right Fracture of lesser trochanter of femur HTN (hypertension) Intentional overdose Nausea Suicide attempt Home Medications metformin 500 mg tablet 1,000 mg PO BID diabetes 02/16/14 [History Last Taken 02/13/18] gabapentin 800 mg tablet 800 mg PO 4X/DAY neuropathy 04/22/17 [History Last Taken 02/13/18 21:00] cyanocobalamin (vitamin B-12) 1,000 mcg capsule 1,000 mcg PO DAILY 06/02/18 [History Last Taken Unknown] Ranitidine [Zantac] 150 mg PO BID 08/22/18 [History Last Taken Unknown] insulin glargine U-300 conc 300 unit/mL (1.5 mL) subcutaneous pen (Toujeo SoloStar U-300 Insulin) 60 unit SQ DAILY 08/22/18 [History Last Taken Unknown] hydroxyzine pamoate 50 mg capsule 50 mg PO BID PRN PRN Anxiety #20 caps 04/09/19 [Rx Last Taken Unknown] sucralfate 1 gram tablet 1 gm PO 4X/DAY #20 tabs 04/09/19 [Rx Last Taken Unknown] amoxicillin-potassium clavulanate 1,000 mg-62.5 mg tablet,ext.rel 12hr (Augmentin XR) 1 tab PO BID #8 tabs 09/01/21 [Rx Last Taken Unknown] lisinopril 10 mg tablet 10 mg PO DAILY #30 tabs 09/01/21 [Rx Last Taken Unknown] Allergy/AdvReac Type Severity Reaction Status Date / Time No Known Allergies Allergy Verified 04/24/21 20:10 Family History Mother Arthritis Diabetes Father Diabetes Hypertension High cholesterol Social History Smoking Status: Current every day smoker tobacco type: cigarettes alcohol intake: never substance use type: does not use caffeine: No frequency: does not exercise ROS ROS ED Constitutional Constitutional ED: Denies chills or weight loss Eyes Eyes: Denies change in vision or diplopia ENT ENT ED: Denies ear pain, rhinorrhea or sore throat Cardiovascular Cardiovascular: Denies chest pain, orthopnea, palpitations or racing heartbeat Respiratory/Chest Respiratory/Chest: Denies cough, dyspnea or orthopnea Gastrointestinal Gastrointestinal: Denies abdominal pain, diarrhea, nausea or vomiting Genitourinary Genitourinary ED: Denies dysuria, hematuria or urinary frequency Musculoskeletal Musculoskeletal: Denies arthralgias or myalgias Integumentary Denies abscess or rash Neurologic Neurologic: Denies headache(s) or weakness Psychiatric Psychiatric: Denies anxiety, depression, suicidal ideation or suicidal thoughts Endocrine Endocrinology: Denies polydipsia, polyphagia or polyuria Allergic/Immunologic Allergic/Immunologic ED: Denies mouth swelling, tongue swelling or urticaria EXAM Physical Exam Const Vital Signs: 11/17/21 08:33 Temperature 98.1 F Temperature Source Temporal Pulse Rate 116 H Respiratory Rate 22 H Blood Pressure 200/100 H Blood Pressure Mean 133 Positive well nourished, well developed and obese General Appearance ED: well developed Nutritional Appearance: obese HEENT Reports normocephalic, head/scalp atraumatic and moist mucous membranes Eyes PERRL and EOMs intact bilaterally Neck no lymphadenopathy, supple and no JVD Resp normal respiratory effort and clear to auscultation bilaterally Cardio regular rate, regular rhythm and no murmurs GI normal to inspection, nondistended, normoactive bowel sounds and non-tender Palpation: soft Back/Spine no CVA tenderness and normal ROM Extremity normal to inspection General Extremety ED: Negative for edema General Extremity: Negative for edema Neuro oriented x3 and CN's II-XII intact bilaterally Sensorium / Orientation: alert Motor Exam: strength 5/5 throughout Psych mental status grossly normal Mood & Affect: anxious and tearful; Negative for depressed Skin no rashes or lesions noted and no wounds MDM MDM MDM Narrative Medical decision making narrative: After examining the patient's stool I do not see anything that resembles a worm. I see numerous undigested food particles of various colors and sizes. I do not see any evidence of worms on her feet. She has no lymphedema. Patient was given reassurance. Discharge Plan Triage Chief Complaint: General Illness ED Provider: Ted Enamorado Dx/Rx/DC Orders Clinical Impression: Anxiety about health Prescriptions: No Action metformin 500 MG tablet 1,000 mg PO BID gabapentin 800 MG tablet 800 mg PO 4X/DAY Hold Instructions: until instructed to restart cyanocobalamin (vitamin B-12) 1,000 MCG capsule 1,000 mcg PO DAILY Cherri Mcclure U-300 Insulin 300 UNIT/ML insulin pen 60 unit SQ DAILY Label Comments: inject 60 units sub-q daily Ranitidine [Zantac] 150 MG tablet 150 mg PO BID sucralfate 1 GM tablet 1 gm PO 4X/DAY Qty: 20 0RF hydroxyzine pamoate 50 MG capsule 50 mg PO BID PRN PRN (Reason: Anxiety) Qty: 20 0RF lisinopril 10 mg Tablet 10 mg PO DAILY Qty: 30 0RF amoxicillin-pot clavulanate [Augmentin XR] 1,000-62.5 mg tablet extended release 12 hr 1 tab PO BID Qty: 8 0RF Primary Care Provider: Catalina Samuels NP Referrals: Catalina Samuels NP, [employer]ELOPER-C [Primary Care Provider] - As Needed Disposition Disposition: Home, Self Care
[2021-11-17 09:41] VITALS: RESP 16
== END 2021-11-17 09:49 | disposition home or self-care (01) ==
LOC: ED 09:41
PROVIDERS: Emergency Provider Emergency Medicine; PCP Nurse Practitioner Family; Visit Provider Emergency Medicine
DX: F41.9 Anxiety disorder, unspecified (principal); E11.9 Type 2 diabetes mellitus without complications; I10 Essential (primary) hypertension; K21.9 Gastro-esophageal reflux disease without esophagitis; F32.A Depression, unspecified; E66.9 Obesity, unspecified; Z79.84 Long term (current) use of oral hypoglycemic drugs; Z79.899 Other long term (current) drug therapy; F17.210 Nicotine dependence, cigarettes, uncomplicated
CPT/HCPCS: 99282

== ENCOUNTER 2021-12-05 11:05 | Emergency (ER) | payer MEDICARE, MEDICAID, SELFPAY ==
[2021-12-05 11:06] VITALS: BP 116/83; PULSE 94; RESP 14; TEMP 36.6; O2SAT 100; BMI 31.1
--- NOTE | 2021-12-05 11:31 | ED.VIS.BACK ---
HPI History of Present Illness Chief Complaint: Back Informant: patient Onset/Context/Timing Onset: - (Acute on chronic back pain) Narrative Narrative: Patient presents secondary to back pain. She states she has been dealing with back pain for the past 5 years and follows with a chiropractor. She has never had injections or surgery. She states over the past year it has been getting worse. She has tried ibuprofen, Naprosyn, Tylenol [id number]. She is currently on gabapentin. She presents today because of worsened pain radiating down her right leg. There is been no fall or injury. No fever or chills. [facility] Medical History Abdominal pain Acid reflux Depression Depression with suicidal ideation Diabetes Femur fracture, right Fracture of lesser trochanter of femur HTN (hypertension) Intentional overdose Nausea Suicide attempt Home Medications metformin 500 mg tablet 1,000 mg PO BID diabetes 02/16/14 [History Last Taken 02/13/18] gabapentin 800 mg tablet 800 mg PO 4X/DAY neuropathy 04/22/17 [History Last Taken 02/13/18 21:00] cyanocobalamin (vitamin B-12) 1,000 mcg capsule 1,000 mcg PO DAILY 06/02/18 [History Last Taken Unknown] Ranitidine [Zantac] 150 mg PO BID 08/22/18 [History Last Taken Unknown] insulin glargine U-300 conc 300 unit/mL (1.5 mL) subcutaneous pen (Toujeo SoloStar U-300 Insulin) 60 unit SQ DAILY 08/22/18 [History Last Taken Unknown] hydroxyzine pamoate 50 mg capsule 50 mg PO BID PRN PRN Anxiety #20 caps 04/09/19 [Rx Last Taken Unknown] sucralfate 1 gram tablet 1 gm PO 4X/DAY #20 tabs 04/09/19 [Rx Last Taken Unknown] amoxicillin-potassium clavulanate 1,000 mg-62.5 mg tablet,ext.rel 12hr (Augmentin XR) 1 tab PO BID #8 tabs 09/01/21 [Rx Last Taken Unknown] lisinopril 10 mg tablet 10 mg PO DAILY #30 tabs 09/01/21 [Rx Last Taken Unknown] cyclobenzaprine 10 mg tablet 10 mg PO BID PRN muscle spasm #10 tabs 12/05/21 [Rx Last Taken Unknown] lidocaine 5 % topical patch (Lidoderm) 1 patch topical DAILY #15 ea 12/05/21 [Rx Last Taken Unknown] naproxen 500 mg tablet (Naprosyn) 500 mg PO BID PRN pain #20 tabs 12/05/21 [Rx Last Taken Unknown] prednisone 20 mg tablet 40 mg PO DAILY #8 tabs 12/05/21 [Rx Last Taken Unknown] Allergy/AdvReac Type Severity Reaction Status Date / Time No Known Allergies Allergy Verified 12/05/21 11:07 Family History Mother Arthritis Diabetes Father Diabetes Hypertension High cholesterol Social History Smoking Status: Current every day smoker tobacco type: cigarettes alcohol intake: never substance use type: does not use caffeine: No frequency: does not exercise ROS ROS ED Constitutional Constitutional ED: Denies chills or fever(s) Eyes Eyes: Denies change in vision or discharge from eye(s) ENT ENT ED: Denies discharge from eye(s), rhinorrhea or sore throat Cardiovascular Cardiovascular: Denies chest pain or palpitations Respiratory/Chest Respiratory/Chest: Denies cough or dyspnea Gastrointestinal Gastrointestinal: Denies abdominal pain, diarrhea, nausea or vomiting Genitourinary Genitourinary ED: Denies difficulty urinating or dysuria Musculoskeletal Musculoskeletal: Reports back pain and extremity pain Integumentary Denies Abrasions or rash Neurologic Neurologic: Denies headache(s) or weakness Psychiatric Psychiatric: Denies anxiety or depression Allergic/Immunologic Allergic/Immunologic ED: Denies lip swelling or urticaria EXAM Physical Exam Const Vital Signs: 12/05/21 11:06 Temperature 97.9 F Temperature Source Temporal Pulse Rate 94 Respiratory Rate 14 Blood Pressure 116/83 H Blood Pressure Mean 94 Pulse Ox 100 Oxygen Delivery Method Room Air Positive well nourished and well developed General Appearance ED: well developed HEENT Reports normocephalic and head/scalp atraumatic Eyes PERRL and EOMs intact bilaterally Neck supple Chest Wall inspection of chest normal and palpation of chest normal Resp normal respiratory effort and clear to auscultation bilaterally Cardio regular rate and regular rhythm GI normal to inspection, nondistended, normoactive bowel sounds Palpation: soft Back/Spine no CVA tenderness Back/Spine Narrative: Reproducible tenderness in the right low lumbar paraspinal muscles. No midline lumbar tenderness. Extremity normal to inspection Neuro oriented x3 and no sensory deficits noted Sensorium / Orientation: alert Motor Exam: strength 5/5 throughout Psych mental status grossly normal Skin no rashes or lesions noted [facility] Treatment and Re-Evaluation Narrative: Patient will be given Naprosyn, Lidoderm patch, Flexeril, prednisone. First round of medication be given here with prescription sent to the pharmacy for her. Return instructions provided. Discharge Plan Triage Chief Complaint: Back ED Provider: Amelia aLdd Dx/Rx/DC Orders Clinical Impression: Sciatica Instructions: ED Sciatica Prescriptions: New naproxen [Naprosyn] 500 mg tablet 500 mg PO BID PRN (Reason: pain) Qty: 20 0RF prednisone 20 mg tablet 40 mg PO DAILY Qty: 8 0RF cyclobenzaprine 10 mg tablet 10 mg PO BID PRN (Reason: muscle spasm) Qty: 10 0RF lidocaine [Lidoderm] 5 % adhesive patch,medicated 1 patch topical DAILY Qty: 15 0RF Rx Instructions: leave on most painful area for up to 12 hrs No Action metformin 500 MG tablet 1,000 mg PO BID gabapentin 800 MG tablet 800 mg PO 4X/DAY Hold Instructions: until instructed to restart cyanocobalamin (vitamin B-12) 1,000 MCG capsule 1,000 mcg PO DAILY Tougurwinder SoloStar U-300 Insulin 300 UNIT/ML insulin pen 60 unit SQ DAILY Label Comments: inject 60 units sub-q daily Ranitidine [Zantac] 150 MG tablet 150 mg PO BID sucralfate 1 GM tablet 1 gm PO 4X/DAY Qty: 20 0RF hydroxyzine pamoate 50 MG capsule 50 mg PO BID PRN PRN (Reason: Anxiety) Qty: 20 0RF lisinopril 10 mg Tablet 10 mg PO DAILY Qty: 30 0RF amoxicillin-pot clavulanate [Augmentin XR] 1,000-62.5 mg tablet extended release 12 hr 1 tab PO BID Qty: 8 0RF Primary Care Provider: Catalina Samuels NP Referrals: Catalina Samuels NP, CHECK WEIGHER-C [Primary Care Provider] - 1-2 Weeks Disposition Disposition: Home, Self Care
[2021-12-05] MEDS: Lidocaine 5% Patch 1 PATCH TOPICAL (11:54)
[2021-12-05] MEDS: predniSONE 20 MG Tablet 60 MG PO (11:54)
[2021-12-05] MEDS: cycloBENZAPRine HCl 10 MG Tablet PO (11:54)
[2021-12-05] MEDS: Naproxen 500 MG Tablet PO (11:55)
== END 2021-12-05 12:00 | disposition home or self-care (01) ==
PROVIDERS: Emergency Provider Emergency Medicine; PCP Nurse Practitioner Family; Visit Provider Emergency Medicine
DX: M54.40 Lumbago with sciatica, unspecified side (principal); E11.9 Type 2 diabetes mellitus without complications; Z79.4 Long term (current) use of insulin; G89.29 Other chronic pain; I10 Essential (primary) hypertension; F17.210 Nicotine dependence, cigarettes, uncomplicated; Z79.899 Other long term (current) drug therapy
CPT/HCPCS: 99284

== ENCOUNTER 2022-01-07 15:44 | Emergency (ER) | payer MEDICARE, MEDICAID, SELFPAY ==
[2022-01-07 15:47] VITALS: BP 181/108; PULSE 120; RESP 24; TEMP 35.6; O2SAT 100; BMI 32.0
[2022-01-07 17:28] VITALS: RESP 16
--- NOTE | 2022-01-07 17:28 | EDS_ITS ---
HPI History of Present Illness Chief Complaint: General Illness Detail of Chief Complaint: I see worms Informant: patient Onset/Context/Timing Onset: Today Context: Sudden Onset Quality: asymptomatic Location: left forearm Current Severity: Gone Maximum Severity: Mild Worsened by: unk Relieved by: unk Associated Symptoms Associated Symptoms: R hip pain x years Narrative Narrative: Patient states just today she noticed worms crawling out of some red spots on her left forearm. There is no pain or itching. She is very accusatory as I initially evaluate her and she is telling me that she has worms crawling out of her arm, but agrees that they are not there right now. She states when she saw them, 1 was white and 1 was brown. She states she thinks that they were also coming out of her right forehead where she has no lesion but felt something funny earlier. She denies eating any uncooked meats. She was here in November and complained of something similar. She thought that she was pooping worms but that has not been the case anymore and she denies any changes in her stools. She also states that she has had pain in her right hip for the last 2 or 3 years, she points to her right ASIS, states that it hurts to walk at times, when she rests it is better temporarily. She denies lateral hip pain or further into the groin. She has been evaluated by pain management but not started on any injections or pain medications yet. [facility] Medical History Abdominal pain Acid reflux Depression Depression with suicidal ideation Diabetes Femur fracture, right Fracture of lesser trochanter of femur HTN (hypertension) Intentional overdose Nausea Suicide attempt Home Medications metformin 500 mg tablet 1,000 mg PO BID diabetes 02/16/14 [History Last Taken 02/13/18] gabapentin 800 mg tablet 800 mg PO 4X/DAY neuropathy 04/22/17 [History Last Taken 02/13/18 21:00] cyanocobalamin (vitamin B-12) 1,000 mcg capsule 1,000 mcg PO DAILY 06/02/18 [History Last Taken Unknown] Ranitidine [Zantac] 150 mg PO BID 08/22/18 [History Last Taken Unknown] insulin glargine U-300 conc 300 unit/mL (1.5 mL) subcutaneous pen (Toujeo SoloStar U-300 Insulin) 60 unit SQ DAILY 08/22/18 [History Last Taken Unknown] hydroxyzine pamoate 50 mg capsule 50 mg PO BID PRN PRN Anxiety #20 caps 04/09/19 [Rx Last Taken Unknown] sucralfate 1 gram tablet 1 gm PO 4X/DAY #20 tabs 04/09/19 [Rx Last Taken Unknown ] amoxicillin-potassium clavulanate 1,000 mg-62.5 mg tablet,ext.rel 12hr (Augmentin XR) 1 tab PO BID #8 tabs 09/01/21 [Rx Last Taken Unknown] lisinopril 10 mg tablet 10 mg PO DAILY #30 tabs 09/01/21 [Rx Last Taken Unknown] cyclobenzaprine 10 mg tablet 10 mg PO BID PRN muscle spasm #10 tabs 12/05/21 [Rx Last Taken Unknown] lidocaine 5 % topical patch (Lidoderm) 1 patch topical DAILY #15 ea 12/05/21 [Rx Last Taken Unknown] naproxen 500 mg tablet (Naprosyn) 500 mg PO BID PRN pain #20 tabs 12/05/21 [Rx Last Taken Unknown] prednisone 20 mg tablet 40 mg PO DAILY #8 tabs 12/05/21 [Rx Last Taken Unknown] triamcinolone acetonide 0.1 % topical cream 1 applic topical BID PRN rash #15 grams 01/07/22 [Rx Last Taken Unknown] Allergy/AdvReac Type Severity Reaction Status Date / Time No Known Allergies Allergy Verified 01/07/22 15:47 Family History Mother Arthritis Diabetes Father Diabetes Hypertension High cholesterol Social History Smoking Status: Current every day smoker tobacco type: cigarettes alcohol intake: never substance use type: does not use caffeine: No frequency: does not exercise ROS ROS ED Constitutional Constitutional ED: Denies chills or fever(s) Eyes Eyes: Denies change in vision or diplopia ENT ENT ED: Denies rhinorrhea or sore throat Cardiovascular Cardiovascular: Denies chest pain or palpitations Respiratory/Chest Respiratory/Chest: Denies cough or dyspnea Gastrointestinal Gastrointestinal: Denies abdominal pain, diarrhea, nausea or vomiting Genitourinary Genitourinary ED: Denies dysuria or hematuria Musculoskeletal Musculoskeletal: Reports as per HPI and extremity pain; Denies back pain or neck pain Integumentary Reports as per HPI; Denies abscess or rash Neurologic Neurologic: Denies headache(s), paresthesias or weakness Psychiatric Psychiatric: Denies anxiety or suicidal thoughts EXAM Physical Exam Const Vital Signs: 01/07/22 15:47 01/07/22 17:23 Temperature 96.0 F L Temperature Source Temporal Pulse Rate 120 H Respiratory Rate 24 H Respiratory Effort Normal Non-Labored Respiratory Pattern Normal Blood Pressure 181/108 H Blood Pressure Mean 132 Pulse Ox 100 Oxygen Delivery Method Room Air Positive well nourished and well developed General Appearance ED: well developed and NAD HEENT Reports moist mucous membranes normocephalic and atraumatic Eyes PERRL and EOMs intact bilaterally Neck full ROM and supple Resp normal respiratory effort and clear to auscultation bilaterally Cardio regular rate, regular rhythm and no murmurs GI non-tender and non-distended Auscultation: normoactive bowel sounds Palpation: soft Back/Spine no CVA tenderness General Back: other FROM Extremity normal to inspection Extremity Narrative: Couple of small petechial looking spots on her left dorsal forearm at the same location as a tattoo. They may be tattoo ink. There is no tenderness, there is no bleeding or discharge, there is no abscess, there are no worms or other foreign bodies. With regards to her right hip, she has some tenderness just medial to the ASIS. There is no palpable lymphadenopathy. No greater trochanter tenderness. Easy internal/external rotation of the hip joint without significant discomfort. General Extremety ED: Negative for edema, pulses abnormal or tenderness General Extremity: Negative for edema or pulses abnormal Neuro oriented x3, CN's II-XII intact bilaterally and no sensory deficits noted Sensorium / Orientation: awake and alert Motor Exam: strength 5/5 throughout Psych Psych Narrative: Very anxious. Angry at times. Skin no rashes or lesions noted and no wounds MDM MDM MDM Narrative Medical decision making narrative: I am suspicious this patient may have iliopsoas bursitis on her right hip. I recommend following up with her PCP and getting a referral to physical therapy, she states that she is working on that. If she sees the right therapist, dry needling can help with this if that is the diagnosis. She does not have anything emergent there, but I was reassuring her that if that is the diagnosis she could have benefit from going to physical therapy and avoid pain management. With regards to the forearm, I see no evidence of a parasitic infection here. I will prescribe her some triamcinolone to rub on it to see if that helps any discomfort she may experience. Discharge Plan Triage Chief Complaint: General Illness ED Provider: Jorge Pennington Dx/Rx/DC Orders Clinical Impression: Acute pain of right hip, Iliopsoas bursitis of right hip, Dermatitis, Episode of hypertension Instructions: How Your Hip Works, ED Bursitis Prescriptions: New triamcinolone acetonide 0.1 % cream 1 applic topical BID PRN (Reason: rash) Qty: 15 0RF No Action metformin 500 MG tablet 1,000 mg PO BID gabapentin 800 MG tablet 800 mg PO 4X/DAY Hold Instructions: until instructed to restart cyanocobalamin (vitamin B-12) 1,000 MCG capsule 1,000 mcg PO DAILY T[employer] SoloStar U-300 Insulin 300 UNIT/ML insulin pen 60 unit SQ DAILY Label Comments: inject 60 units sub-q daily Ranitidine [Zantac] 150 MG tablet 150 mg PO BID sucralfate 1 GM tablet 1 gm PO 4X/DAY Qty: 20 0RF hydroxyzine pamoate 50 MG capsule 50 mg PO BID PRN PRN (Reason: Anxiety) Qty: 20 0RF lisinopril 10 mg Tablet 10 mg PO DAILY Qty: 30 0RF amoxicillin-pot clavulanate [Augmentin XR] 1,000-62.5 mg tablet extended release 12 hr 1 tab PO BID Qty: 8 0RF naproxen [Naprosyn] 500 mg tablet 500 mg PO BID PRN (Reason: pain) Qty: 20 0RF prednisone 20 mg tablet 40 mg PO DAILY Qty: 8 0RF cyclobenzaprine 10 mg tablet 10 mg PO BID PRN (Reason: muscle spasm) Qty: 10 0RF lidocaine [Lidoderm] 5 % adhesive patch,medicated 1 patch topical DAILY Qty: 15 0RF Rx Instructions: leave on most painful area for up to 12 hrs Primary Care Provider: Catalina Samuels NP Referrals: Catalina Samuels NP, [employer] [Primary Care Provider] - (Next week to have evaluation for physical therapy referral, if you have not already; also to have your blood pressure rechecked) Disposition Disposition: Home, Self Care
== END 2022-01-07 17:51 | disposition home or self-care (01) ==
PROVIDERS: Emergency Provider Emergency Medicine; PCP Nurse Practitioner Family; Visit Provider Emergency Medicine
DX: L30.9 Dermatitis, unspecified (principal); Z79.4 Long term (current) use of insulin; E11.9 Type 2 diabetes mellitus without complications; M70.71 Other bursitis of hip, right hip; I10 Essential (primary) hypertension; F17.210 Nicotine dependence, cigarettes, uncomplicated; Z79.84 Long term (current) use of oral hypoglycemic drugs; Z79.52 Long term (current) use of systemic steroids; Z79.1 Long term (current) use of non-steroidal anti-inflammatories (NSAID); Z79.899 Other long term (current) drug therapy
CPT/HCPCS: 99282

== ENCOUNTER 2022-06-05 10:08 | Emergency (ER) | payer MEDICARE, MEDICAID, SELFPAY ==
[2022-06-05 10:09] VITALS: BP 136/79; PULSE 106; RESP 18; TEMP 36.6; O2SAT 100; BMI 31.8
--- NOTE | 2022-06-05 10:34 | EDS_ITS ---
HPI History of Present Illness Chief Complaint: Foreign Body Narrative Narrative: 46-year-old female presenting with ring stuck on left ring finger. She states she snagged it on something and the ring partially broke. She is now unable to remove it. Prior similar symptoms: No PFSH PFSH Medical History Abdominal pain Acid reflux Depression Depression with suicidal ideation Diabetes Femur fracture, right Fracture of lesser trochanter of femur HTN (hypertension) Intentional overdose Nausea Suicide attempt Home Medications metformin 500 mg tablet 1,000 mg PO BID diabetes 02/16/14 [History Last Taken 02/13/18] gabapentin 800 mg tablet 800 mg PO 4X/DAY neuropathy 04/22/17 [History Last Taken 02/13/18 21:00] cyanocobalamin (vitamin B-12) 1,000 mcg capsule 1,000 mcg PO DAILY 06/02/18 [History Last Taken Unknown] Ranitidine [Zantac] 150 mg PO BID 08/22/18 [History Last Taken Unknown] insulin glargine U-300 conc 300 unit/mL (1.5 mL) subcutaneous pen (Toujeo SoloStar U-300 Insulin) 60 unit SQ DAILY 08/22/18 [History Last Taken Unknown] hydroxyzine pamoate 50 mg capsule 50 mg PO BID PRN PRN Anxiety #20 caps 04/09/19 [Rx Last Taken Unknown] sucralfate 1 gram tablet 1 gm PO 4X/DAY #20 tabs 04/09/19 [Rx Last Taken Unknown] amoxicillin-potassium clavulanate 1,000 mg-62.5 mg tablet,ext.rel 12hr (Augmentin XR) 1 tab PO BID #8 tabs 09/01/21 [Rx Last Taken Unknown] lisinopril 10 mg tablet 10 mg PO DAILY #30 tabs 09/01/21 [Rx Last Taken Unknown] cyclobenzaprine 10 mg tablet 10 mg PO BID PRN muscle spasm #10 tabs 12/05/21 [Rx Last Taken Unknown] lidocaine 5 % topical patch (Lidoderm) 1 patch topical DAILY #15 ea 12/05/21 [Rx Last Taken Unknown] naproxen 500 mg tablet (Naprosyn) 500 mg PO BID PRN pain #20 tabs 12/05/21 [Rx Last Taken Unknown] prednisone 20 mg tablet 40 mg PO DAILY #8 tabs 12/05/21 [Rx Last Taken Unknown] triamcinolone acetonide 0.1 % topical cream 1 applic topical BID PRN rash #15 grams 01/07/22 [Rx Last Taken Unknown] Allergy/AdvReac Type Severity Reaction Status Date / Time No Known Allergies Allergy Verified 06/05/22 10:11 Family History Mother Arthritis Diabetes Father Diabetes Hypertension High cholesterol Social History Smoking Status: Current every day smoker tobacco type: cigarettes alcohol intake: never substance use type: does not use caffeine: No frequency: does not exercise ROS ROS ED Constitutional Constitutional ED: Denies fever(s) Musculoskeletal Musculoskeletal: Reports other Details: left ring finger pain ; Denies myalgias EXAM Physical Exam Const Vital Signs: 06/05/22 10:09 Temperature 97.9 F Temperature Source Temporal Pulse Rate 106 H Respiratory Rate 18 Blood Pressure 136/79 H Blood Pressure Mean 98 Pulse Ox 100 Oxygen Delivery Method Room Air Positive well nourished and well developed General Appearance ED: well developed HEENT Reports normocephalic and head/scalp atraumatic Eyes PERRL and EOMs intact bilaterally Neck supple General: Negative for tenderness Chest Wall inspection of chest normal Resp normal respiratory effort Cardio regular rate and regular rhythm Extremity normal to inspection Extremity Narrative: ring stuck on left ring finger. Normal cap refill Neuro oriented x3 Sensorium / Orientation: alert Psych mental status grossly normal MDM MDM MDM Narrative Medical decision making narrative: Ring was removed with ring cutter. Neurovascularly intact. Active full range of motion. Patient feels much improved. Advised to follow-up with primary care physician as needed. Advised return to ED for worsening complaints. Discharge Plan Triage Chief Complaint: Foreign Body ED Provider: Carmina Bragg Dx/Rx/DC Orders Clinical Impression: Foreign body finger Instructions: ED Foreign Body Soft Tissue Prescriptions: No Action metformin 500 MG tablet 1,000 mg PO BID gabapentin 800 MG tablet 800 mg PO 4X/DAY Hold Instructions: until instructed to restart cyanocobalamin (vitamin B-12) 1,000 MCG capsule 1,000 mcg PO DAILY Cherri Mcclure U-300 Insulin 300 UNIT/ML insulin pen 60 unit SQ DAILY Label Comments: inject 60 units sub-q daily Ranitidine [Zantac] 150 MG tablet 150 mg PO BID sucralfate 1 GM tablet 1 gm PO 4X/DAY Qty: 20 0RF hydroxyzine pamoate 50 MG capsule 50 mg PO BID PRN PRN (Reason: Anxiety) Qty: 20 0RF lisinopril 10 mg Tablet 10 mg PO DAILY Qty: 30 0RF amoxicillin-pot clavulanate [Augmentin XR] 1,000-62.5 mg tablet extended release 12 hr 1 tab PO BID Qty: 8 0RF naproxen [Naprosyn] 500 mg tablet 500 mg PO BID PRN (Reason: pain) Qty: 20 0RF prednisone 20 mg tablet 40 mg PO DAILY Qty: 8 0RF cyclobenzaprine 10 mg tablet 10 mg PO BID PRN (Reason: muscle spasm) Qty: 10 0RF lidocaine [Lidoderm] 5 % adhesive patch,medicated 1 patch topical DAILY Qty: 15 0RF Rx Instructions: leave on most painful area for up to 12 hrs triamcinolone acetonide 0.1 % cream 1 applic topical BID PRN (Reason: rash) Qty: 15 0RF Primary Care Provider: Catalina Samuels NP Referrals: Catalina Samuels NP, [employer] [Primary Care Provider] - Disposition Disposition: Home, Self Care
[2022-06-05 11:12] VITALS: PULSE 98; RESP 17; O2SAT 98
== END 2022-06-05 11:15 | disposition home or self-care (01) ==
PROVIDERS: Emergency Provider Emergency Medicine; PCP Nurse Practitioner Family; Visit Provider Emergency Medicine
DX: S60.552A Superficial foreign body of left hand, initial encounter (principal); F17.210 Nicotine dependence, cigarettes, uncomplicated; X58.XXXA Exposure to other specified factors, initial encounter
CPT/HCPCS: 99282